=== PATIENT | female | born 1985 | race Caucasian/White ===

== ENCOUNTER 2016-11-10 14:48 | Emergency (ER) | payer OTHER ==
[~2016-11-10] VITALS: Ht 170.2 cm; Wt 141.5 kg
[~2016-11-10 14:48] MED LIST: ABILIFY 10 MG10 MG PO; ABILIFY5 M1 PO; CLINDAMYCIN HY300 MG PO; FOLIC ACID1 M1 PO; GABAPENTIN300 MG PO; HYDROXYCHLOROQ200 M1 PO; LEVOFLOXACIN500 MG PO; LYRICA100 MG PO; METHOTREXA25 MG/1 M5 SC; METHOTREXATE25 MG/M2 SC; METOPROLOL SUCC50 M2 PO; NOVAPLUS V0.09 MG/Ac INH; OXYCODONE HYDRO30 MG PO; OXYCONTIN60 M1 PO; PANTOPRAZOLE SO40 M1; PREDNISONE10 MG PO; PRILOSEC 20MG C20 MG PO; PROAIR HFA8.5 GM INH; PROCHLORPERAZIN10 M1 PO; ROZEREM8 M1 PO; TEGRETOL200 M1 PO; TESSALON PERLE100 MG PO; VALIUM5 M2 PO; VENLAFAXINE HY150 MG PO; VENLAFAXINE HYD75 M1 PO; VITAMIN D250000 UNIT PO; XARELTO20 MG PO; XYLOCAINE VISCO20 ML PO; ZITHROMAX Z-PA250 M1 PO; ZITHROMAX250 M2 PO; ZOFRAN4 MG PO
--- NOTE | 2016-11-10 15:28 | ED CARDIAC/CP/PALPITATIONS ---
History of Present Illness General Chief Complaint: Chest Pain Stated Complaint: BIBA FOR CHEST DISCOMFORT Source: patient Exam Limitations: no limitations Allergies Coded Allergies: Penicillins (Severe, HIVES 03/19/16) ibuprofen (Intermediate, HIVES 03/19/16) levofloxacin (Intermediate, "CAUSED MY RUPTURED TENDON" 03/19/16) Sulfa (Sulfonamide Antibiotics) ("MOM TOLD HER SHE WAS ALLERGIC" 03/19/16) metoclopramide (DYSTONIA 03/19/16) Reconcile Medications Albuterol Sulfate (Proair Hfa) 8.5 GM HFA.AER.AD 2 PUF INH Q4-6 PRN PRN WHEEZE Aripiprazole (Abilify) 5 MG TABLET 1 TAB PO DAILY MENTAL HEALTH (Reported) Carbamazepine (Tegretol) 200 MG TABLET 1 TAB PO BID PAIN (Reported) Ergocalciferol (Vitamin D2) (Vitamin D2) 50,000 UNIT CAPSULE 1 CAP PO QTUES SUPPLEMENT (Reported) Folic Acid 1 MG TABLET 2 TAB PO BID SUPPLEMENT (Reported) Hydroxychloroquine Sulfate 200 MG TABLET 1 TAB PO BID POLYMYOSITIS (Reported) Methotrexate Sodium (Methotrexate) 25 MG/ML VIAL 1 ML SC QW RA (Reported) Methotrexate Sodium (Methotrexate) 25 MG/1 ML VIAL 1 ML SC QMON RA (Reported) Metoprolol Succinate 50 MG TAB.ER.24H 1 TAB PO DAILY HEART/BP (Reported) Oxycodone HCl (Oxycontin) 60 MG TAB.ER.12H 1 TAB PO BID PAIN (Reported) OXYCODONE HCL (Oxycodone Hydrochloride) 30 MG TABLET 1 TAB PO 4 TIMES/DAY PAIN (Reported) Pantoprazole Sodium (Unknown Strength) TABLET.DR (Unknown Dose) UNKNOWN ( Reported) Prednisone 10 MG TABLET 10 MG PO DAILY POLYMYOSITIS (Reported) Pregabalin (Lyrica) 100 MG CAPSULE 1 CAP PO TID PAIN (Reported) Ramelteon (Rozerem) 8 MG TABLET 1 TAB PO DAILY SLEEP (Reported) Rivaroxaban (Xarelto) 20 MG TABLET 1 TAB PO DAILY BLOOD THINNER (Reported) with food VENLAFAXINE HCL (Venlafaxine HCl ER) 150 MG CAP.ER.24H 1 CAP PO DAILY MENTAL HEALTH (Reported) VENLAFAXINE HCL (Venlafaxine HCl ER) 75 MG CAP.ER.24H 1 CAP PO DAILY MOOD HEALTH (Reported) Triage Note: PT BIBA TACHYCARDIA AND CHEST PAIN THAT BEGAN TODAY. TACHYCARDIC ON ARRIVAL AT 110, APPEARS FLUSHED, PT REPORTING "GENERALIZED PAIN BUT I HAV E FIBROMYALGIA SO IM ALWAYS IN PAIN." HX OF PE AND PT REPORTING THIS "FEELS SIMILAR." REPORTING SHE FEELS THOUGH "I CANT TAKE A DEEP BREATH IN" LUNGS CTA. Triage Nurses Notes Reviewed? yes : No Patient currently breastfeeds: No HPI: This patient is a 31-year-old female with a past medical history including tachycardia and pulmonary embolism currently on 20 mg of XARELTO daily who presented to the emergency department today for evaluation of chest pain and difficulty breathing. The patient reported that her symptoms began approximately noon today. She reported that her chest pain gets up to a 7 out of 10, has been located in the center of her chest, has been intermittent in, and occasionally radiates to the bicep of her right arm. She reported no palliative or provoking factors. The patient reported that she feels like it is difficult to take a deep breath in causing her to feel short of breath. The patient also reported that she has had symptoms of calf pain and pain behind her right knee as well as lower extremity swelling over the last several months which has not been addressed. The patient reported some intermittent and associated nausea. She denied any headaches, fevers, chills, jaw pain, numbness or tingling in her extremities, back pain, abdominal pain, vomiting, cough, hemoptysis, exogenous estrogen use, or recent surgeries. The patient reported that she does spend the majority of her time in bed. She reported that her current symptoms feel similar to when she had a pulmonary embolism in the past. The patient is denying any current chest pain. (ELISEO RUIZ,DANIEL) Vital Signs & Intake/Output Vital Signs & Intake/Output Vital Signs Date Time Temp Pulse Resp B/P Pulse O2 O2 Flow FiO2 Ox Delivery Rate 11/10 1906 97.7 106 18 123/59 91 11/10 1649 97.8 110 18 103/54 94 11/10 1503 99 Room Air 11/10 1501 98.4 109 21 123/72 94 Room Air Past History Travel History Traveled to [place] past 21 day No Medical History Any Pertinent Medical History? see below for history Neurological: NONE EENT: NONE Cardiovascular: NONE Respiratory: pulmonary embolism, ASTHMA R\\T SPORTS PNA Gastrointestinal: tubular adenoma Hepatic: NONE Renal: NONE Musculoskeletal: chronic back pain, degen joint disease, fibromyalgia, osteoarthritis, MIXED CONNECTIVE TISSUE DISEASE RSD BULGING DISC TENDON TRANSFER POLYMYOCITIS CARPAL TUNNEL R WRIST FX Psychiatric: bipolar disease, depression Endocrine: NONE Blood Disorders: NONE Cancer(s): NONE BILLPOSTER/Reproductive: NONE Other Medical Hx: MIXED CONNECTIVE TISSUE DISORDER History of MRSA: No History of VRE: No History of CDIFF: No Surgical History Surgical History: non-contributory Psychosocial History Who do you live with Mother Services at Home None What is your primary language Burkinan Tobacco Use: Never used ETOH Use: denies use Illicit Drug Use: denies illicit drug use Family History Family History, If Any: Relation not specified for: FH: lung cancer FH: thyroid condition Hx Contributory? No (DANIEL GOMES PA-C) Review of Systems Review of Systems Constitutional: Reports: no symptoms. EENTM: Reports: no symptoms. Respiratory: Reports: see HPI. Cardiovascular: Reports: see HPI. GI: Reports: see HPI. Genitourinary: Reports: no symptoms. Musculoskeletal: Reports: no symptoms. Skin: Reports: no symptoms. Neurological/Psychological: Reports: no symptoms. Hematologic/Endocrine: Reports: see HPI. All Other Systems: Reviewed and Negative (DANIEL GOMES PA-C) Physical Exam Physical Exam Cardiovascular: TACHYCARDIC WITH A REGULAR RHYTHM AND NO MURMURS, RUBS, OR GALLOPS. nORMAL PERIPHERAL PULSES. nO jvd OR CAROTID BRUITS Comments: Well-developed well-nourished person in no acute distress HEENT: Normal EENT exam, head normocephalic, moist mucous membranes PERRLA bilaterally Neck: Supple, no lymphadenopathy Back: Normal inspection Respiratory: Chest nontender. Speaking sentences. Lungs clear to auscultation bilaterally with no wheezes, rales, or rhonchi. No diminished breath sounds or stridor Abdomen: Soft, nontender and nondistended Extremity: No edema, bilateral calf tenderness with no erythema and positive Homans sign bilaterally, normal and equal pulses. Neuro: Alert oriented x3, cranial nerves II through XII grossly intact. Skin: No appreciable rash on exposed skin, skin is warm and dry. Psych: Mood and affect is normal Core Measures ACS in differential dx? Yes Severe Sepsis Present: No Septic Shock Present: No (ELISEO PA-C,DANIEL) Progress Differential Diagnosis: AMI, aortic dissection, atrial fibrillation, costochondritis, hyperkalemia, hyperthyroid, hyperventilation, musculoskeletal pain, myocarditis, pancreatitis, pericarditis, pneumonia, pneumothorax, PSVT, pulmonary embolism, PUD/GERD, PVCs/PACs, unstable angina, dvt Diagnostic Imaging: Viewed by Me: Radiology Read, Ultrasound. Discussed w/RAD: Radiology Read, Ultrasound. Radiology Impression: PATIENT: SHAVON FARRIS PRESENT AGE: 31 PATIENT ACCOUNT NO: [id number] : 83 LOCATION: ER ORDERING PHYSICIAN: DANIEL GOMES PA-C SERVICE DATE: 11/10/16-1520 EXAM TYPE: US - US-EXT BILAT VENOUS DOPPLER EXAMINATION: US TRIPLEX LOWER EXTREMITY, BILATERAL CLINICAL INFORMATION: Shortness of breath. COMPARISON: Ultrasound of the bilateral lower extremity veins 11/26/2014. TECHNIQUE: Color-flow triplex imaging with spectral analysis and compression Doppler were performed on the bilateral lower extremities. FINDINGS: Respiratory variation, normal compression and augmented flow are noted throughout the bilateral lower extremities. The visualized common femoral veins, femoral veins, profunda femoral veins, popliteal veins and midcalf peroneal and posterior tibial venous segments demonstrate no evidence of deep venous thrombosis. There are no Bedolla's cysts. IMPRESSION: Normal triplex scan without evidence of deep venous thrombosis involving the bilateral lower extremity veins. DICTATED BY: MANDEEP GARVEY MD DATE/TIME DICTATED:11/10/161638 CHANGE MANAGEMENT CONSULTANT:ARMAND DATE/TIME TRANSCRIBED:11/10/161638 CONFIDENTIAL, DO NOT COPY WITHOUT APPROPRIATE AUTHORIZATION. <Electronically signed in Other Vendor System> SIGNED BY: MANDEEP GARVEY MD 11/10/16 1652 CXR Impression: PATIENT: SHAVON FARRIS PRESENT AGE: 31 PATIENT ACCOUNT NO: [id number] : 83 LOCATION: [facility] ORDERING PHYSICIAN: DANIEL GOMES PA-C SERVICE DATE: 11/10/16-1602 EXAM TYPE: RAD - XRY-PORTABLE CHEST XRAY EXAMINATION: XR PORTABLE CHEST CLINICAL INFORMATION: Chest pain and shortness of breath COMPARISON: 03/19/2016 TECHNIQUE: Portable AP view of the chest was obtained. FINDINGS: The cardiomediastinal silhouette is normal. The lungs appear clear. No consolidation, pulmonary edema, pleural effusion, or pneumothorax. The spine is not well visualized due to technique. No acute osseous abnormality is elsewhere seen. IMPRESSION: No acute abnormality. DICTATED BY: DARREN VALLES MD DATE/TIME DICTATED:11/10/161646 CHANGE MANAGEMENT CONSULTANT:ARMAND DATE/TIME TRANSCRIBED:11/10/161646 CONFIDENTIAL, DO NOT COPY WITHOUT APPROPRIATE AUTHORIZATION. <Electronically signed in Other Vendor System> SIGNED BY: DARREN VALLES MD 11/10/161651 Initial ED EKG: normal axis, normal intervals, nonspecific ST T wave chg, 113 BPM, MORE EXAGGERATED st DEPRESSIONS IN LEADS v1, v2 THEN IN PRIOR ekg Repeat EKG: unchanged (100 BPM) Comments: 11/10/2016 5:19:16 PM: I was at the patient's bedside for reevaluation. She is currently resting comfortably on the stretcher and in no acute distress. Updated her on the results of her imaging and laboratory studies. White blood cell count 10.9. D-dimer less than 200. No evidence of DVT on bilateral lower extremity ultrasound. Troponin not elevated. This patient will stay for a second troponin level IV hours from the first. She is requesting medication for pain at this time. She reported that she took her previously prescribed oxycodone and OxyContin this morning. That was at 7:00 AM. 11/10/2016 9:05:34 PM: Patient was updated on the rest of her laboratory studies. Influenza swab negative. Second troponin level not elevated. This patient is going to make a follow-up appointment with her primary care physician. Stable for discharge home. (ELISEO RUIZ,DANIEL) Plan of Care: Orders Procedure Date/time Status TROPONIN LEVEL 11/10 1929 Complete EKG 11/10 1929 Active RAPID VIRAL INFLUENZA A 11/10 1719 Complete THYROID STIMULATING HORMONE 11/10 1528 Complete FREE T4 11/10 1528 Complete ARTERIAL BLOOD GAS (GEN) 11/10 1520 Complete TROPONIN LEVEL 11/10 1520 Complete PARTIAL THROMBOPLASTIN TIME 11/10 1520 Complete PROTHROMBIN TIME 11/10 1520 Complete MAGNESIUM 11/10 1520 Complete HUMAN BETA HCG SCREEN 11/10 1520 Complete D-DIMER 11/10 1520 Complete COMPREHENSIVE METABOLIC PANEL 11/10 1520 Complete CBC WITHOUT DIFFERENTIAL 11/10 1520 Complete EKG 11/10 1449 Active Laboratory Tests 11/10/162004: Troponin I < 0.01 11/10/16 1540: pH 7.38, pCO2 52 H, pO2 74 L, HCO3 30 H, ABG O2 Sat (Measured) 94.0 L, P-50 (Temp Corrected) Y, Carboxyhemoglobin 0.5 L, O2 Concentration % 2L, Temperature 97.8, O2 Delivery Method N/C, Phlebotomy Draw Site RIGHT RADIAL 11/10/16 1533: TSH 2.250, Free T4 1.19 11/10/16 1533: Anion Gap 11, Estimated GFR > 60, BUN/Creatinine Ratio 14.3, Glucose 87, Calcium 8.2 L, Magnesium 1.6, Total Bilirubin 0.3, AST 26, ALT 48, Alkaline Phosphatase 130 H, Troponin I < 0.01, Total Protein 6.9, Albumin 3.8, Globulin 3.1, Albumin /Globulin Ratio 1.2, Total Beta HCG NEGATIVE, PT 11.7, INR 1.12, APTT 29, D- Dimer < 200, CBC w Diff NO MAN DIFF REQ, RBC 4.34, MCV 89.1, MCH 30.0, RDW 13.3, MPV 8.7, Gran % 66.8, Lymphocytes % 26.2, Monocytes % 5.6, Eosinophils % 1.0, Basophils % 0.4, Absolute Granulocytes 7.3 H, Absolute Lymphocytes 2.9, Absolute Monocytes 0.6, Absolute Eosinophils 0.1, Absolute Basophils 0, PUBS MCHC 33.6 Departure Departure Disposition: HOME OR SELF CARE Condition: Stable Clinical Impression Primary Impression: Chest pain Qualifiers: Chest pain type: unspecified Qualified Code: R07.9 - Chest pain, unspecified Referrals: JENNIE NIELSEN MD (PCP/Family) Additional Instructions: Please call to make a follow-up appointment with your primary care physician. Rest and be sure to stay hydrated. Return to the emergency department for any worsening symptoms or concerns. Departure Forms: Customer Survey General Discharge Information (DANIEL GOMES PA-C) PA/SENIOR BEHAVIORAL SCIENTIST Co-Sign Statement Statement: ED Attending supervision documentation- [] I saw and evaluated the patient. I have also reviewed all the pertinent lab results and diagnostic results. I agree with the findings and the plan of care as documented in the PA's/SENIOR BEHAVIORAL SCIENTIST's documentation. [x] I have reviewed the ED Record and agree with the PA's/SENIOR BEHAVIORAL SCIENTIST's documentation. [] Additions or exceptions (if any) to the PAs/SENIOR BEHAVIORAL SCIENTIST's note and plan are summarized below: [] (TRINA WNAG,BRET Mullins) Resident Co-Sign Statement Statement: ED Attending supervision documentation- [] I saw and evaluated the patient. I have also reviewed all the pertinent lab results and diagnostic results. I agree with the findings and the plan of care as documented in the Resident's documentation. [X] I have reviewed the ED Record and agree with the Resident's documentation. [] Additions or exceptions (if any) to the Resident's note and plan are summarized below: [] (MARJORIE COMER,BRET Cooper) Critical Care Note Critical Care Note Critical Care Time: non-applicable (ELISEO RUIZ,DANIEL)
[2016-11-10 15:54] LABS: ABSOLUTE BASOPHIL COUNT 0 /CUMM (0.0-0.2); ABSOLUTE EOSINOPHIL COUNT 0.1 /CUMM (0.0-0.7); ABSOLUTE GRANULOCYTE CT 7.3 /CUMM (1.4-6.5); ABSOLUTE LYMPH COUNT 2.9 /CUMM (1.2-3.4); ABSOLUTE MONOCYTE COUNT 0.6 /CUMM (0.10-0.60); BASOPHIL % 0.4 % (0.0-2.0); GRANULOCYTE % 66.8 % (42.2-75.2); HEMATOCRIT 38.6 % (37-47); MEAN CORPUSCULAR HGB CONC 33.6 G/DL (33.0-37.0); MEAN CORPUSCULAR VOLUME 89.1 FL (81.0-99.0); MEAN PLATELET VOLUME 8.7 FL (7.4-10.4); PLATELET COUNT 276 /CUMM (130-400); RBC DISTRIBUTION WIDTH 13.3 % (11.5-14.5); RED BLOOD CELL CT 4.34 /CUMM (4.20-5.40); WHITE BLOOD CELL COUNT 10.9 /CUMM (4.8-10.8)
[2016-11-10 15:57] LABS: PT 11.7 SEC (9.4-12.5); PTT 29 SEC (25-37)
--- NOTE | 2016-11-10 16:52 | ULTRASOUND REPORT ---
EXAMINATION: US TRIPLEX LOWER EXTREMITY, BILATERAL CLINICAL INFORMATION: Shortness of breath. COMPARISON: Ultrasound of the bilateral lower extremity veins 11/26/2014. TECHNIQUE: Color-flow triplex imaging with spectral analysis and compression Doppler were performed on the bilateral lower extremities. FINDINGS: Respiratory variation, normal compression and augmented flow are noted throughout the bilateral lower extremities. The visualized common femoral veins, femoral veins, profunda femoral veins, popliteal veins and midcalf peroneal and posterior tibial venous segments demonstrate no evidence of deep venous thrombosis. There are no Bedolla's cysts. IMPRESSION: Normal triplex scan without evidence of deep venous thrombosis involving the bilateral lower extremity veins.
--- NOTE | 2016-11-10 16:52 | RADIOLOGY REPORT ---
EXAMINATION: XR PORTABLE CHEST CLINICAL INFORMATION: Chest pain and shortness of breath COMPARISON: 03/19/2016 TECHNIQUE: Portable AP view of the chest was obtained. FINDINGS: The cardiomediastinal silhouette is normal. The lungs appear clear. No consolidation, pulmonary edema, pleural effusion, or pneumothorax. The spine is not well visualized due to technique. No acute osseous abnormality is elsewhere seen. IMPRESSION: No acute abnormality.
[2016-11-10 19:06] VITALS: BP 123/59
== END 2016-11-10 21:20 ==
LOC: ERH 14:48
PROVIDERS: Physician Assistant
DX: R07.89 Other chest pain (principal)
CPT/HCPCS: 87804; 87804-59; 93005; 93010; 93970; 96374

== ENCOUNTER 2017-12-12 18:52 | Observation (INO) | payer OTHER ==
[~2017-12-12] VITALS: Ht 170.2 cm; Wt 147.4 kg
[~2017-12-12 18:52] MED LIST changes: +DIAZEPAM5 M1 PO; -HYDROXYCHLOROQ200 M1 PO; +HYDROXYCHLOROQ200 M2 PO; +HYDROXYZINE PAM25 M2 PO; +LYRICA100 M1 PO; -LYRICA100 MG PO; +METOPROLOL TART50 M1 PO; +OXYCODONE HCL30 M1 PO; +PREDNISONE10 M2 PO; -PREDNISONE10 MG PO; +RASUVO 2525 MG/0.5 IM; +VENLAFAXINE HC225 MG PO; +XARELTO20 M2 PO; -XARELTO20 MG PO
--- NOTE | 2017-12-12 19:18 | ED PSYCHIATRIC COMPLAINT ---
See Addendum History of Present Illness General Chief Complaint: Psychiatric Related Complaint Stated Complaint: SIB CARE FOR CRISIS EVAL, +SI Source: patient Exam Limitations: no limitations Vital Signs & Intake/Output Vital Signs & Intake/Output Vital Signs Date Time Temp Pulse Resp B/P B/P Pulse O2 O2 Flow FiO2 Mean Ox Delivery Rate 12/14 1352 98.2 98 18 111/64 94 Room Air 03/ 1111 97.9 92 18 130/76 98 Room Air 03/ 0956 98.7 88 18 135/63 03/02 0826 98.7 88 18 135/63 98 Room Air 03/ 0659 99.1 99 18 110/64 97 Room Air 03/ 0535 97.0 80 18 122/70 98 Room Air / 0331 97.3 82 18 125/72 97 Room Air / 0032 97.5 80 18 122/74 98 Room Air 12/13 2231 97.8 83 14 118/64 95 Room Air 12/13 2011 97.6 82 16 124/66 96 Room Air 12/13 1806 98.0 84 14 129/70 96 Room Air 12/13 1604 98.0 82 19 122/66 95 Room Air ED Intake and Output / 0000 12/13 1200 Intake Total Output Total Balance Patient 325 lb Weight Allergies Coded Allergies: Penicillins (Severe, HIVES 06/25/17) ibuprofen (Intermediate, HIVES 06/25/17) levofloxacin (Intermediate, "CAUSED MY RUPTURED TENDON" 06/25/17) Sulfa (Sulfonamide Antibiotics) ("MOM TOLD HER SHE WAS ALLERGIC" 06/25/17) metoclopramide (DYSTONIA 06/25/17) Triage Note: PT TO TRIAGE WITH +SI. PER PT CALLED [facility] TO TELL THEM SHE WAS COMING HERE BECAUSE SHE HAS BEEN DEPRESSED WITH LIFE STRESSORS LATELY. DENIES ACTIVE PLAN. DENIES SI ATTEMPTS IN THE PAST BUT ADMITS TO LONG TAFOYA WITH DEPRESSION. PER PT FEELS "MANIC" LIKE SHE CANNOT CONTROL HER THOUGHTS. HX:BIPOLAR. DENIES HI. AWARE OF POLICIES AND PROCEDURES. PT CALM AND COOPERATIVE IN TRIAGE. Triage Nurses Notes Reviewed? yes Onset: Gradual Duration: week(s): (1), changing over time, continues in ED, getting worse Timing: single episode today Severity: moderate, severe Associated Symptoms: suicidal ideation LMP (ages 10-50): unknown : No Patient currently breastfeeds: No HPI: 32-year-old female past medical history depression, chronic back pain bipolar disorder and pulmonary embolism presents for evaluation of depression and suicidal ideation. Patient states that due to increasing life stressors recently she's been having thoughts of suicide. She states that she has been having thoughts of wanting to overdose on pills. She denies any illicit drug use does state that she uses oxycodone and OxyContin and Valium and but does report that she takes her remaining meds as directed. She denies any hallucinations alcohol use chest pain shortness of breath. She does have chronic back pain which hurts her constantly. (René SEBASTIAN,Jorgito) Reconcile Medications Albuterol Sulfate (Proair Hfa) 8.5 GM HFA.AER.AD 2 PUF INH Q4-6 PRN PRN WHEEZE Aripiprazole (Abilify) 5 MG TABLET 1 TAB PO DAILY MENTAL HEALTH (Reported) Bupropion HCl (Wellbutrin XL) 150 MG TAB.ER.24H 1 TAB PO DAILY MENTAL HEALTH (Reported) Carbamazepine (Carbamazepine XR) 400 MG TAB.ER.12H 1 TAB PO BID MENTAL HEALTH (Reported) Diazepam 5 MG TABLET 1 TAB PO 4 TIMES/DAY ANXIETY (Reported) Ergocalciferol (Vitamin D2) (Vitamin D2) 50,000 UNIT CAPSULE 1 CAP PO QTUES SUPPLEMENT (Reported) Folic Acid 1 MG TABLET 1 TAB PO BID SUPPLEMENT (Reported) Hydroxychloroquine Sulfate 200 MG TABLET 1 TAB PO BID POLYMYSITIS (Reported) Hydroxyzine Pamoate 25 MG CAPSULE 1 CAP PO 4 TIMES/DAY ANXIETY (Reported) Lidocaine HCl (Lidocaine) (Unknown Strength) OINT...G. (Unknown Dose) TOP PRN PAIN (Reported) Methotrexate/Pf (Rasuvo 25 MG/0.5 Ml Autoinj) 25 MG/0.5 ML AUTO.INJCT 1 INJ INJ QMON POLYMYSITIS (Reported) Metoprolol Succinate 50 MG TAB.ER.24H 1 TAB PO QAM HEART/BP (Reported) Oxycodone HCl (Oxycontin) 60 MG TAB.ER.12H 1 TAB PO TID PAIN (Reported) Oxycodone HCl 30 MG TABLET 1 TAB PO Q4 PAIN (Reported) Oxycodone Myristate (Xtampza ER) (Unknown Strength) CAP.SPR.12 (Unknown Dose) UNKNOWN (Reported) Prednisone 10 MG TABLET 1 TAB PO DAILY POLYMYOSITIS (Reported) Pregabalin (Lyrica) 100 MG CAPSULE 1 CAP PO TID PAIN (Reported) Rivaroxaban (Xarelto) 20 MG TABLET 1 TAB PO QPM BLOOD THINNER (Reported) with food Venlafaxine HCl (Venlafaxine HCl ER) 225 MG TAB.ER.24 1 TAB PO DAILY MOOD HEALTH (Reported) (Brendan WANG,Yury Ndiaye) Past History Travel History Traveled to [place] past 21 day No Medical History Any Pertinent Medical History? see below for history Neurological: NONE EENT: NONE Cardiovascular: NONE Respiratory: pulmonary embolism, ASTHMA R\\T SPORTS PNA Gastrointestinal: tubular adenoma Hepatic: NONE Renal: NONE Musculoskeletal: chronic back pain, degen joint disease, fibromyalgia, osteoarthritis, MIXED CONNECTIVE TISSUE DISEASE RSD BULGING DISC TENDON TRANSFER POLYMYOCITIS CARPAL TUNNEL R WRIST FX Psychiatric: bipolar disease, depression Endocrine: NONE Blood Disorders: NONE Cancer(s): NONE LAB AID/Reproductive: NONE Other Medical Hx: MIXED CONNECTIVE TISSUE DISORDER History of MRSA: No History of VRE: No History of CDIFF: No Surgical History Surgical History: non-contributory Psychosocial History Who do you live with Mother Services at Home None What is your primary language Portuguese Tobacco Use: Quit >30 days ago ETOH Use: denies use Illicit Drug Use: marijuana Family History Family History, If Any: Relation not specified for: FH: lung cancer FH: thyroid condition Hx Contributory? No (Jorgito Quintero) Review of Systems Review of Systems Constitutional: Reports: no symptoms. EENTM: Reports: no symptoms. Respiratory: Reports: no symptoms. Cardiovascular: Reports: no symptoms. GI: Reports: no symptoms. Genitourinary: Reports: no symptoms. Musculoskeletal: Reports: see HPI, back pain. Skin: Reports: no symptoms. Neurological/Psychological: Reports: see HPI, anxiety, depressed. Hematologic/Endocrine: Reports: no symptoms. Immunologic/Allergic: Reports: no symptoms. All Other Systems: Reviewed and Negative (Jorgito Quintero) Physical Exam Physical Exam General Appearance: well developed/nourished, no apparent distress, alert, awake , anxious, obese Head: atraumatic, normal appearance Eyes: Bilateral: normal appearance, PERRL, EOMI. Ears, Nose, Throat: normal pharynx, normal ENT inspection, hearing grossly normal Neck: normal inspection, supple, full range of motion Respiratory: normal breath sounds, chest non-tender, no respiratory distress, lungs clear Cardiovascular: regular rate/rhythm, normal peripheral pulses Gastrointestinal: soft, non-tender Extremities: normal range of motion Neurological/Psychiatric: no motor/sensory deficits, awake, alert, anxious Appearance/Memory/Insight: disheveled Behavoir/Eye Contact/Speech: cooperative, normal speech Thoughts/Hallucinations: normal thought pattern, no apparent hallucination Skin: intact, normal color, warm/dry SAD PERSONS SAD PERSONS Response Value Depression/Hopelessness? yes 2 Excessive Ethanol/Drug Use? yes 1 Rational Thinking Loss? yes 2 Single//? yes 1 Total 6 SAD PERSONS Done? yes (René SEBASTIAN,Jorgito) Progress Differential Diagnosis: dementia, drug intoxication, drug overdose, drug withdrawal, electrolyte abnormality Plan of Care: Orders Procedure Date/time Status Continuous Observation Monitor 12/14 0700 Active Continuous Observation Monitor 12/14 0300 Active Continuous Observation Monitor 12/13 2300 Active Continuous Observation Monitor 12/13 1900 Active Current Medications Sig/Paul Start time Last Medication Dose Stop Time Status Admin Bupropion HCl 150 MG DAILY 12/14 1000 AC 12/14 (Wellbutrin XL) 0956 Oxycodone HCl 30 MG Q4 12/14 1000 AC 12/14 (Roxicodone) 0956 Oxycodone HCl 60 MG Q8 12/14 0810 AC 12/14 (OxyCONTIN) 0827 Venlafaxine HCl 225 MG 0800 12/14 0800 AC 12/14 (Effexor Xr) 0803 Rivaroxaban 20 MG 1700 12/13 1700 AC 12/13 (Xarelto) 1745 Aripiprazole 5 MG DAILY 12/13 1000 AC 12/13 (Abilify) 1046 Carbamazepine 400 MG BID 12/13 1000 AC 12/14 (Carbatrol Extended 0955 Release) Diazepam 5 MG DAILY 12/13 1000 AC 12/14 (Valium) 0956 Hydroxychloroquine 200 MG BID 12/13 1000 AC 12/14 Sulfate 0956 (Plaquenil 200MG Tab) Metoprolol Succinate 50 MG DAILY 12/13 1000 AC 12/14 (Toprol Xl) 0956 Prednisone 10 MG DAILY 12/13 1000 AC 12/14 0956 Omeprazole 20 MG DAILY AC 12/13 0700 AC 12/14 (Prilosec) 0803 Pregabalin 100 MG TID 12/13 0115 AC 12/14 (Lyrica) 0956 Patient seen and evaluated. She is reporting thoughts of suicide with a plan to ingest pills. We'll check basic blood work patient will then see crisis. Patient's medications that she takes daily were ordered. It was noted that she takes oxycodone 30 mg 4 times a day and diazepam 5 mg daily. Since these are her chronic meds they will be continued to have her avoid withdrawal symptoms. She states that she has not taken her opioids in 2 days which may be contributing to her suicidal thoughts. Patient signed out to Dr. ROJO pending blood work and crisis. Hand-Off Endorsed To: Eugenio Rojo MD Endorsed Time: 230 Pending: consult (CRISIS) (Jorgito Quintero) Hand-Off Endorsed To: Faisal De La Rosa MD Endorsed Time: 0700 Pending: consult (Eugenio Rojo MD) Departure Departure Condition: Stable Clinical Impression Primary Impression: Suicidal ideation Referrals: Yury Milligan MD (PCP/Family) Departure Forms: Customer Survey General Discharge Information (Jorgito Quintero) PA/PET RESORT CONCIERGE Co-Sign Statement Statement: ED Attending supervision documentation- x I saw and evaluated the patient. I have also reviewed all the pertinent lab results and diagnostic results. I agree with the findings and the plan of care as documented in the PA's/PET RESORT CONCIERGE's documentation. [] I have reviewed the ED Record and agree with the PA's/PET RESORT CONCIERGE's documentation. [] Additions or exceptions (if any) to the PAs/PET RESORT CONCIERGE's note and plan are summarized below: [] (Eugenio Rojo MD) Departure Disposition: [facility] (Brendan WANG,Yury Ndiaye) ED Attending Observation Initial Observation Note: I have seen and personally examined SHAVON FARRIS on 12/12/17 at 2973. I agree with the current emergency department documentation. The disposition (admission or discharge) is uncertain at this time, she needs a period of observation for the following reason(s): depression suicidal ideation awaiting psychiatric evaluation The ED Nurse caring for this patient has been personally informed as to what the patient is being observed for. (Eugenio Rojo MD) Observation Discharge: I have reevaluated BRENTONSHAVON E on 12/14/17 at 1356. The patient is: (): Stable for discharge (): To be admitted to Nursing Floor (): To be placed in Observation on Nursing Floor ([X]): For transfer to other facility The patient was being observed for [DEPRESISON] As a result of that observation, I have determined [TRANSFER TO INPATIENT PSYCH] . (Brendan WANG,Yury Ndiaye)
[2017-12-13 01:44] LABS: ABSOLUTE BASOPHIL COUNT 0 /CUMM (0.0-0.2); ABSOLUTE EOSINOPHIL COUNT 0.1 /CUMM (0.0-0.7); ABSOLUTE GRANULOCYTE CT 4.1 /CUMM (1.4-6.5); ABSOLUTE LYMPH COUNT 2.8 /CUMM (1.2-3.4); ABSOLUTE MONOCYTE COUNT 0.3 /CUMM (0.10-0.60); BASOPHIL % 0.6 % (0.0-2.0); EOSINOPHIL % 1.5 % (0-5); GRANULOCYTE % 55.8 % (42.2-75.2); HEMATOCRIT 38.6 % (37-47); MEAN CORPUSCULAR HGB 29.3 PG (27.0-31.0); MEAN CORPUSCULAR HGB CONC 33.2 G/DL (33.0-37.0); MEAN CORPUSCULAR VOLUME 88.4 FL (81.0-99.0); MEAN PLATELET VOLUME 7.7 FL (7.4-10.4); PLATELET COUNT 332 /CUMM (130-400); RBC DISTRIBUTION WIDTH 13.6 % (11.5-14.5); RED BLOOD CELL CT 4.37 /CUMM (4.20-5.40); WHITE BLOOD CELL COUNT 7.3 /CUMM (4.8-10.8)
[2017-12-13] MEDS ORDERED: CARBAMAZEPINE400 M1 PO (08:56)
[2017-12-13] MEDS ORDERED: WELLBUTRIN XL150 M2 PO (09:00)
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
[2017-12-13] MEDS ORDERED: RASUVO 2525 MG/0.5 INJ (18:53)
[2017-12-13] MEDS ORDERED: XTAMPZA ER36 MG (18:55)
[2017-12-13] MEDS ORDERED: LIDOCAINE35.44 GM TOP (18:55)
[2017-12-14 13:52] VITALS: BP 111/64
== END 2017-12-14 15:09 | disposition other institution (70) ==
LOC: ERH 18:52 → ERHI 23:52
PROVIDERS: Physician Assistant Medical
DX: F32.9 Major depressive disorder, single episode, unspecified (principal); M33.20 Polymyositis, organ involvement unspecified; R45.851 Suicidal ideations; J45.909 Unspecified asthma, uncomplicated; F31.9 Bipolar disorder, unspecified; M54.9 Dorsalgia, unspecified; Z86.711 Personal history of pulmonary embolism; Z79.01 Long term (current) use of anticoagulants; F12.90 Cannabis use, unspecified, uncomplicated; Z86.018 Personal history of other benign neoplasm; M79.7 Fibromyalgia; M19.90 Unspecified osteoarthritis, unspecified site
CPT/HCPCS: 80307; 81003; 81025; G0378; G0463; G0480; J3490; J7512

== ENCOUNTER 2018-01-10 19:03 | Inpatient (IN) | payer OTHER ==
[~2018-01-10] VITALS: Ht 170.2 cm; Wt 150.3 kg
[~2018-01-10 19:03] MED LIST changes: +CARBAMAZEPINE400 M1 PO; +LIDOCAINE35.44 GM TOP; +RASUVO 2525 MG/0.5 INJ; +WELLBUTRIN XL150 M2 PO; +XTAMPZA ER36 MG
[2018-01-10 20:16] LABS: ABSOLUTE BASOPHIL COUNT 0 /CUMM (0.0-0.2); ABSOLUTE EOSINOPHIL COUNT 0.1 /CUMM (0.0-0.7); ABSOLUTE GRANULOCYTE CT 3.6 /CUMM (1.4-6.5); ABSOLUTE LYMPH COUNT 2.6 /CUMM (1.2-3.4); ABSOLUTE MONOCYTE COUNT 0.3 /CUMM (0.10-0.60); BASOPHIL % 0.5 % (0.0-2.0); EOSINOPHIL % 1.7 % (0-5); GRANULOCYTE % 53.6 % (42.2-75.2); HEMATOCRIT 36.4 % (37-47); MEAN CORPUSCULAR HGB 29.7 PG (27.0-31.0); MEAN CORPUSCULAR HGB CONC 33.5 G/DL (33.0-37.0); MEAN CORPUSCULAR VOLUME 88.5 FL (81.0-99.0); MEAN PLATELET VOLUME 7.6 FL (7.4-10.4); PLATELET COUNT 283 /CUMM (130-400); RBC DISTRIBUTION WIDTH 13.4 % (11.5-14.5); RED BLOOD CELL CT 4.11 /CUMM (4.20-5.40); WHITE BLOOD CELL COUNT 6.7 /CUMM (4.8-10.8)
--- NOTE | 2018-01-10 20:38 | ED PSYCHIATRIC COMPLAINT ---
History of Present Illness General Chief Complaint: Psychiatric Related Complaint Stated Complaint: +SI, ON PEER Source: patient, old records, EMS, police Exam Limitations: PSYCHIATRIC DISEASE, RELUCTANT HISTORIAN Vital Signs & Intake/Output Vital Signs & Intake/Output Vital Signs Date Time Temp Pulse Resp B/P B/P Pulse O2 O2 Flow FiO2 Mean Ox Delivery Rate 01/11 1850 98.1 97 18 145/90 96 Room Air 01/11 1556 97.8 98 18 112/76 96 Room Air 01/11 1205 97.9 96 18 108/74 94 Room Air 01/11 1001 98.4 98 18 110/84 91 Room Air 01/11 0808 98.9 101 18 114/54 98 Room Air 01/11 0652 97.9 72 18 116/70 96 01/11 0513 20 Room Air 01/11 0224 97.6 68 18 106/72 96 Room Air 01/11 0130 Room Air 01/11 0130 97.6 83 18 124/66 98 Room Air 01/10 2330 97.2 81 18 107/55 96 Room Air 01/10 2259 Room Air 01/10 2134 97.8 79 20 102/56 94 Room Air ED Intake and Output 01/11 0000 01/10 1200 Intake Total 0 Output Total Balance 0 Intake, Oral 0 Allergies Coded Allergies: Penicillins (Severe, HIVES 06/25/17) ibuprofen (Intermediate, HIVES 06/25/17) levofloxacin (Intermediate, "CAUSED MY RUPTURED TENDON" 06/25/17) Sulfa (Sulfonamide Antibiotics) ("MOM TOLD HER SHE WAS ALLERGIC" 06/25/17) metoclopramide (DYSTONIA 06/25/17) Reconcile Medications Albuterol Sulfate (Proair Hfa) 8.5 GM HFA.AER.AD 2 PUF INH Q4-6 PRN PRN WHEEZE Bupropion HCl (Wellbutrin XL) 150 MG TAB.ER.24H 1 TAB PO DAILY MENTAL HEALTH (Reported) Carbamazepine (Carbamazepine XR) 400 MG TAB.ER.12H 1 TAB PO BID MENTAL HEALTH (Reported) Diazepam 5 MG TABLET 1 TAB PO 4 TIMES/DAY ANXIETY (Reported) Ergocalciferol (Vitamin D2) (Vitamin D2) 50,000 UNIT CAPSULE 1 CAP PO QTUES SUPPLEMENT (Reported) Fluoxetine HCl 20 MG CAPSULE 2 CAP PO DAILY MENTAL HEALTH (Reported) Folic Acid 1 MG TABLET 1 TAB PO BID SUPPLEMENT (Reported) Hydroxychloroquine Sulfate 200 MG TABLET 1 TAB PO BID POLYMYSITIS (Reported) Hydroxyzine Pamoate 25 MG CAPSULE 1 CAP PO 4 TIMES/DAY ANXIETY (Reported) Lidocaine HCl (Lidocaine) (Unknown Strength) OINT...G. (Unknown Dose) TOP PRN PAIN (Reported) Methotrexate/Pf (Rasuvo 25 MG/0.5 Ml Autoinj) 25 MG/0.5 ML AUTO.INJCT 1 INJ INJ QMON POLYMYSITIS (Reported) Metoprolol Succinate 50 MG TAB.ER.24H 1 TAB PO QAM HEART/BP (Reported) Oxycodone HCl (Oxycontin) 60 MG TAB.ER.12H 1 TAB PO BID PAIN (Reported) Oxycodone HCl 30 MG TABLET 1 TAB PO Q4 PAIN (Reported) Prednisone 10 MG TABLET 1 TAB PO DAILY POLYMYOSITIS (Reported) Pregabalin (Lyrica) 100 MG CAPSULE 1 CAP PO TID PAIN (Reported) Rivaroxaban (Xarelto) 20 MG TABLET 1 TAB PO QPM BLOOD THINNER (Reported) with food Trazodone HCl 150 MG TABLET 1 TAB PO QPM MENTAL HEALTH (Reported) Venlafaxine HCl (Venlafaxine HCl ER) 150 MG CAP.ER.24H 1 CAP PO DAILY MENTAL HEALTH (Reported) Triage Note: PT BIBA ON PEER FOR +SI SINCE MAY. CALM AND COOPERATIVE ON ARRIVAL. Triage Nurses Notes Reviewed? yes Onset: Afternoon Duration: hour(s):, continues in ED, getting worse Severity: severe : No Patient currently breastfeeds: No HPI: Patient presents for evaluation of suicide ideation this evening. Patient states she called the crisis line who then put her in contact with the police. The police prompted her to come to the emergency department for evaluation. She states that she "does not want to live" and "doesn't want to be in pain". She states that she was unable to take her chronic pain medications prior to arrival because the police wouldn't allow her to do so. In addition to feeling suicidal she is feeling overwhelmed. (Estrella WANG,Faisal Carrizales) Past History Travel History Traveled to [place] past 21 day No Medical History Any Pertinent Medical History? 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 No (Estrella WANG,Faisal Carrizales) Review of Systems Review of Systems Constitutional: Reports: no symptoms. EENTM: Reports: no symptoms. Respiratory: Reports: no symptoms. Cardiovascular: Reports: no symptoms. GI: Reports: no symptoms. Genitourinary: Reports: no symptoms. Musculoskeletal: Reports: no symptoms, joint pain (LEFT WRIST-CARPAL TUNNEL). Skin: Reports: no symptoms. Neurological/Psychological: Reports: see HPI. Hematologic/Endocrine: Reports: no symptoms. Immunologic/Allergic: Reports: no symptoms. All Other Systems: Reviewed and Negative (Estrella WANG,Faisal Carrizales) Physical Exam Physical Exam General Appearance: SEE BELOW Neurological/Psychiatric: SEE BELOW Comments: General: Alert, calm, cooperative Head: Normocephalic, atraumatic Eyes: Normal inspection, no nystagmus, EOMI Ears: Normal inspection Nose: Normal inspection Throat: Moist mucosa Neck: Supple, no goiter Heart: Regular rate and rhythm, no murmurs rubs or gallops Lungs: Clear to auscultation bilaterally with good air entry Abdomen: Soft nontender nondistended, normal bowel sounds Chest: Nontender Extremities: Normal range of motion grossly, no tremors present, no cyanosis clubbing or edema of the upper extremities Neurologic: cranial nerves II through XII grossly intact, speech clear, gait normal Psychiatric: No apparent delusions or hallucinations, no pressured speech or thought blocking SAD PERSONS Done? DEFERRED TO CRISIS (Estrella WANG,Faisal Carrizales) Progress Differential Diagnosis: DEPRESSION, ANXIETY, BIPOLAR DISORDER, PERSONALITY DISORDER Plan of Care: Orders Procedure Date/time Status Regular Diet 03/31 B Active Admit to inpatient psych 01/11 2002 Active Misc Message 01/11 2002 Active ED Holding Orders 01/11 2002 Active Code Status 01/11 2002 Active Continuous Observation Monitor 01/11 1900 Active Continuous Observation Monitor 01/11 1500 Active Continuous Observation Monitor 01/11 1100 Active Continuous Observation Monitor 01/11 0700 Active URINE DRUG SCREEN FOR ER ONLY 01/10 2038 Complete ED CRISIS PSYCH CONSULT 01/10 2038 Active Current Medications Sig/Paul Start time Last Medication Dose Stop Time Status Admin Venlafaxine HCl 150 MG 0800 01/12 0800 UNVr (Effexor Xr) Oxycodone HCl 30 MG Q6 01/11 1500 UNVr (Roxicodone) Bupropion HCl 150 MG DAILY 01/11 1000 UNVr 01/11 (Wellbutrin XL) 1045 Fluoxetine HCl 40 MG DAILY 01/11 1000 UNVr 01/11 (Prozac) 1045 Metoprolol Succinate 50 MG QAM 01/11 1000 UNVr 01/11 (Toprol Xl) 1045 Prednisone 10 MG DAILY 01/11 1000 UNVr 01/11 1046 Pregabalin 100 MG TID 01/11 0103 AC 01/11 (Lyrica) 1052 Hydroxyzine HCl 25 MG Q6 01/11 0102 UNVr 01/11 (Atarax) 0819 Diazepam 5 MG 4 TIMES/DAY 01/11 0101 AC 01/11 (Valium) 1052 Hydroxychloroquine 200 MG BID 01/11 010 UNVr 01/11 Sulfate 1045 (Plaquenil 200MG Tab) Laboratory Tests 01/10/182140: Urine Opiates Screen 831.00, Methadone Screen < 40, Barbiturate Screen < 60, Ur Phencyclidine Scrn < 6.00, Amphetamines Screen < 100, U Benzodiazepines Scrn > 800 H, Urine Cocaine Screen < 50, Urine Cannabis Screen 13.60, Urine Test NEGATIVE 01/10/182037: Sodium Cancelled, Potassium Cancelled, Chloride Cancelled, Carbon Dioxide Cancelled, Anion Gap Cancelled, BUN Cancelled, Creatinine Cancelled, BUN/ Creatinine Ratio Cancelled, Glucose Cancelled, Calcium Cancelled 01/10/182006: Anion Gap 10, Estimated GFR > 60, BUN/Creatinine Ratio 11.7, Glucose 120 H, Calcium 9.2, Total Bilirubin 0.3, AST 23, ALT 18, Alkaline Phosphatase 143 H, Total Protein 6.9, Albumin 3.7, Globulin 3.2, Albumin/Globulin Ratio 1.2, CBC w Diff NO MAN DIFF REQ, RBC 4.11 L, MCV 88.5, MCH 29.7, MCHC 33.5, RDW 13.4, MPV 7.6, Gran % 53.6, Lymphocytes % 39.4, Monocytes % 4.8, Eosinophils % 1.7, Basophils % 0.5, Absolute Granulocytes 3.6, Absolute Lymphocytes 2.6, Absolute Monocytes 0.3, Absolute Eosinophils 0.1, Absolute Basophils 0, Serum Alcohol < 10.0 Comments: 01/11/2018 7:24:03 AM patient signed out to Dr. ROJO at shift manager change. (Estrella WANG,Faisal Carrizales) Hand-Off Endorsed To: Eliseo WANG,Alec Tirado Endorsed Time: 1899 Pending: consult (re-eval), other (taper prn oxycodone) (Eugenio Rojo MD) Departure Departure Disposition: STILL A PATIENT Condition: Stable Clinical Impression Primary Impression: Depression Referrals: Yury Milligan MD (PCP/Family) Departure Forms: Customer Survey General Discharge Information (Estrella WANG,Faisal Carrizales) Psych Admission Note Psychiatric Admission: I have seen and evaluated SHAVON FARRIS. I have also reviewed all the pertinent lab results and diagnostic results. SHAVON FARRIS Erasmo will be admitted to our inpatient Psychiatric unit for treatment and care. (Eliseo WANG,Alec Tirado)
--- NOTE | 2018-01-10 20:56 | ED PSY CRISIS COLLATERAL NOTE ---
Collateral Note Collateral Note Family/Inform/Makayla Contacts: SW attempted to obtain collateral from the patients sister, Sylvia Flynn ), however there was no answer and a message was left.
[2018-01-10] MEDS ORDERED: FLUOXETINE HCL20 M2 PO (21:28)
[2018-01-10] MEDS ORDERED: VENLAFAXINE HC150 MG PO (21:28)
[2018-01-10] MEDS ORDERED: TRAZODONE HCL150 M1 PO (21:30)
--- NOTE | 2018-01-11 13:34 | ED PSYCH CRISIS CONSULTATION ---
Crisis Consult Basic Assessment Date of Consult: 01/11/18 Responsible Person/Accompanied By: sister Chambers Insurance Authorization: Insurance #1: Insurance name: MEDICARE - [employer] Phone number: Policy number: [id number] Group number: Authorization number: ED Provider: Patient's ED Provider: Faisal De La Rosa MD Primary Care Physician: Patient's PCP: Yury Milligan MD PCP's Current Psychiatrist: [facility] Chief Complaint: Psychiatric Related suicidal Patient's Quote: "Yeah, I feel suicidal. I can't do it" Present Illness: Patient is 32 year old, unmarried woman, with an extensive history of psychiatric illness who has been hospitalized a number of times, but states that things have not improved for her, and that they have only gotten worse. She had been in [facility] in [place], [place] until recently, but insists that the 2 weeks that she was there was an inadequate, and she "told them repeatedly" that she was not ready, and that she needed more time, "but I was discharged anyway". Patient rio is living at home, but states that she doews not leave her room very much:does not like her budget and policy analyst at [facility], and does not want to follow with him; is very unhappy about her sister taking over making decisions; and is upset about her 8 year old daughter living with her sister, in [place]. Patient reiterates feeling suicidal, and states she is not eating or drinking anything. Patient reports that a major issue for her is her medical problems, for which she sees Dr. Smith in [place], who prescribes her pain medication, which she is most concerned with. Patient talks about a long history of beiung in pain, and that she feels that shr "just has it worked out about right", but that Dr. Smith keeps wanting to decrease the amount. Her pain and depression render her housebound much of the time. Patient had been cariung for her ailing mother for some time, but her sister made some other arrangements, and, now, she is making plans for her daughter that involve child's biological father, and patient is unhappy aout that. Patient states that she has never felt fully functional, and self medicated with alcohol for years, but that is no longer the case. She did injure her back when she was 20 which made things more difficult. Patient presents as very depressed, and irritated at treaters and her sister. She is questioning medication changes made at [facility]. Patient will need in-patient treatment. Patient's Address: [address] [place] [address] Other Phone Number: Who Do You Live With? Daughter Family/Informants Interviewed: Sylvia Flynn, sister Allergies - Coded Allergies: Penicillins (Severe, HIVES 06/25/17) ibuprofen (Intermediate, HIVES 06/25/17) levofloxacin (Intermediate, "CAUSED MY RUPTURED TENDON" 06/25/17) Sulfa (Sulfonamide Antibiotics) ("MOM TOLD HER SHE WAS ALLERGIC" 06/25/17) metoclopramide (DYSTONIA 06/25/17) Laboratory Results: Laboratory Tests 01/10/182140: Urine Opiates Screen 831.00, Methadone Screen < 40, Barbiturate Screen < 60, Ur Phencyclidine Scrn < 6.00, Amphetamines Screen < 100, U Benzodiazepines Scrn > 800 H, Urine Cocaine Screen < 50, Urine Cannabis Screen 13.60, Urine Test NEGATIVE 01/10/182037: Sodium Cancelled, Potassium Cancelled, Chloride Cancelled, Carbon Dioxide Cancelled, Anion Gap Cancelled, BUN Cancelled, Creatinine Cancelled, BUN/ Creatinine Ratio Cancelled, Glucose Cancelled, Calcium Cancelled 01/10/182006: Anion Gap 10, Estimated GFR > 60, BUN/Creatinine Ratio 11.7, Glucose 120 H, Calcium 9.2, Total Bilirubin 0.3, AST 23, ALT 18, Alkaline Phosphatase 143 H, Total Protein 6.9, Albumin 3.7, Globulin 3.2, Albumin/Globulin Ratio 1.2, CBC w Diff NO MAN DIFF REQ, RBC 4.11 L, MCV 88.5, MCH 29.7, MCHC 33.5, RDW 13.4, MPV 7.6, Gran % 53.6, Lymphocytes % 39.4, Monocytes % 4.8, Eosinophils % 1.7, Basophils % 0.5, Absolute Granulocytes 3.6, Absolute Lymphocytes 2.6, Absolute Monocytes 0.3, Absolute Eosinophils 0.1, Absolute Basophils 0, Serum Alcohol < 10.0 01/10/18 194: Methadone Screen Cancelled, Barbiturate Screen Cancelled, Ur Phencyclidine Scrn Cancelled, Amphetamines Screen Cancelled, U Benzodiazepines Scrn Cancelled, Urine Cocaine Screen Cancelled, Urine Cannabis Screen Cancelled (Jalen FELDMAN,Musa Mccall) Current Medications - Scheduled Medications Bupropion HCl (Wellbutrin XL) 150 MG TAB.ER.24H 1 TAB PO DAILY MENTAL HEALTH # 30 (Reported) Entered as Reported by Jose Jeffries on 12/13/17 0900 Carbamazepine (Carbamazepine XR) 400 MG TAB.ER.12H 1 TAB PO BID MENTAL HEALTH #60 (Reported) Entered as Reported by Jose Jeffries on 12/13/17 0856 Clindamycin HCl 150 MG CAPSULE 1 CAP PO Q8 dental infection #11 CAP Prescribed by Alec Lopez MD on 01/17/18 Cyanocobalamin (Vitamin B-12) 1,000 MCG TABLET 1 TAB PO DAILY low vitamin B12 #14 TAB Prescribed by Alec Lopez MD on 01/17/18 Diazepam 5 MG TABLET 1 TAB PO TID anxiety #120 (Reported) Entered as Reported by Siria Sullivan on 06/25/17 1703 Ergocalciferol (Vitamin D2) (Vitamin D2) 50,000 UNIT CAPSULE 1 CAP PO QTUES SUPPLEMENT (Reported) Entered as Reported by Jose Jeffries on 10/19/14 1356 Fluoxetine HCl 20 MG CAPSULE 2 CAP PO DAILY MENTAL HEALTH #60 (Reported) Entered as Reported by Monica Patel on 01/10/188 Fluoxetine HCl 20 MG CAPSULE 3 CAP PO DAILY AC depression #42 CAP Prescribed by Alec Lopez MD on 01/17/18 Folic Acid 1 MG TABLET 1 TAB PO BID SUPPLEMENT (Reported) Entered as Reported by Jose Jeffries on 10/19/14 1356 Hydroxychloroquine Sulfate 200 MG TABLET 1 TAB PO BID POLYMYSITIS (Reported) Entered as Reported by Jose Jeffries on 10/19/14 1353 Hydroxyzine Pamoate 25 MG CAPSULE 1 CAP PO 4 TIMES/DAY ANXIETY #120 (Reported ) Entered as Reported by Siria Sullivan on 06/25/17 1702 Levothyroxine Sodium (Synthroid) 100 MCG TABLET 1 TAB PO DAILY hypothyroidism #14 TAB Prescribed by Alec Lopez MD on 01/17/18 Methotrexate/Pf (Rasuvo 25 MG/0.5 Ml Autoinj) 25 MG/0.5 ML AUTO.INJCT 1 INJ INJ QMON POLYMYSITIS #2 (Reported) Entered as Reported by Monica Patel on 12/13/17 1853 Last Taken: At an unknown date and time Metoprolol Succinate 50 MG TAB.ER.24H 1 TAB PO QAM HEART/BP #90 (Reported) Entered as Reported by Monica Patel on 06/20/16 1851 Oxycodone HCl (Oxycontin) 60 MG TAB.ER.12H 1 TAB PO BID PAIN (Reported) Entered as Reported by Jose Jeffries on 10/19/14 1355 Oxycodone HCl 30 MG TABLET 1 TAB PO Q4 PAIN (Reported) Entered as Reported by Monica Patel on 01/11/15 1918 Prednisone 10 MG TABLET 1 TAB PO DAILY POLYMYOSITIS (Reported) Entered as Reported by Jose Jeffries on 10/19/14 1352 Pregabalin (Lyrica) 100 MG CAPSULE 1 CAP PO TID PAIN (Reported) Entered as Reported by Monica Patel on 02/26/15 1750 Rivaroxaban (Xarelto) 20 MG TABLET 1 TAB PO QPM BLOOD THINNER (Reported) Entered as Reported by Jose Jeffries on 10/19/14 1356 Trazodone HCl 150 MG TABLET 1 TAB PO QPM MENTAL HEALTH #30 (Reported) Entered as Reported by Monica Patel on 01/10/18 2130 Trazodone HCl 100 MG TABLET 2 TAB PO AT BEDTIME off-label for sleep #28 TAB Prescribed by Alec Lopez MD on 01/17/18 Venlafaxine HCl (Venlafaxine HCl ER) 150 MG CAP.ER.24H 1 CAP PO DAILY MENTAL HEALTH #30 (Reported) Entered as Reported by Monica Patel on 01/10/188 Scheduled PRN Medications Albuterol Sulfate (Proair Hfa) 8.5 GM HFA.AER.AD 2 PUF INH Q4-6 PRN PRN WHEEZE #1 INHAL Prescribed by Yury Cardona MD on 03/19/16 Benzocaine (Orabase) 20 % PASTE..G. 1 ARIA TP Q4P PRN tooth/mouth pain #1 TUBE Prescribed by Alec Lopez MD on 01/17/18 Lidocaine HCl (Lidocaine) (Unknown Strength) OINT...G. 4 OIN TOP BID PRN PAIN (Reported) Entered as Reported by Monica Patel on 12/13/17 5699 (Casandra Yen MD) Past History Past Medical History Neurological: NONE EENT: NONE Cardiovascular: NONE Respiratory: pulmonary embolism, ASTHMA R\\T SPORTS PNA Gastrointestinal: tubular adenoma Hepatic: NONE Renal: NONE Musculoskeletal: chronic back pain, degen joint disease, fibromyalgia, osteoarthritis, MIXED CONNECTIVE TISSUE DISEASE RSD BULGING DISC TENDON TRANSFER POLYMYOCITIS CARPAL TUNNEL R WRIST FX Psychiatric: bipolar disease, depression Endocrine: vitamin D deficiency Blood Disorders: NONE Cancer(s): NONE 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 Reason for Treatment depression, suicidal intent and borderline personality disorder. Dates of Treatment past 10 years Response to Treatment fair Diagnosis by History: Bipolar D/o Opiod Dependance D/O Borderline Personality Disorder Substance Use/Abuse History Drug Use/Abuse Substances Used/Abused Yes Substance Used/Abused Alcohol First Use age 13 Last Used age 19 How much used/taken drank to black out How often almost daily For how long 5+ years Route of use p.o. (Jalen FELDMAN,Musa Mccall) Past Medical History Any Pertinent Medical History? unobtainable Neurological: NONE Past Surgical History Surgical History: unobtainable Psychosocial History Strengths/Capabilities: n/a Substance Abuse Treatment Substance Abuse Treatment Past Substance Abuse [place] No (Casandra Yen MD) Current Mental Status Mental Status Orientation: Person, Place, Situation Affect: Angry, Depressed, Flat, Sad Speech: Pressured Neuro-vegetative: Appetite Decreased, Concentration Poor, Energy Decreased, Loss of Interest Appearance Appearance- Dress/Hygiene: appears to be older than stated age. lethargic Behaviors Thought Process: WNL Thought Content: Somatic Memory: WNL Insight: Fair SI/HI Risk Assessment Past Suicidal Ideation/Attempts Yes Current Suicidal Ideation/Att Yes Past Homicidal Ideation/Att: No Current Homicidal Ideation/Attempts No Degree of Intent: States Intent Danger To: Self Gravely Disabled: Lack of Insight, Poor Judgment Risk Factors: chronic/serious med cond., high anxiety/distress, SA/MH hospitalized, substance abuse, isolate/no social support, poor impulse control, lives alone, limited support Lethality Ratin PTSD Checklist PTSD Done? pt unable to participate ED Management Sitter: Yes Restraints: No (Musa Bazan) DSM5/PS Stressors/Medical Prob Diagnosis' (DSM 5, Stressors, Medical): Major Depressive Disorder, severe, recurrent F 33,2 Opiate Use disorder F11.10 (prescribed) Borderline Personality Disorder F60.3 Current GAF: 22 Comments: Patient is very pessimistic about improvement. Patient is angry with other, including her family and her treaters (Musa Bazan) Departure Disposition Psych Medical Clearance Date: 01/11/18 Medically Cleared at: 1000 Time Started: 1115 Time Ended: 1210 Psychiatrist Consulted: Casandra Yen MD Date Disposition Established: 01/11/18 Time Disposition Established: 1300 Plan for Disposition - Modality: try to decrease amount of pain medication while in the E.D. Re- evaluate Referrals Chel WANG,Yury Javier (PCP/Family) (Musa Bazan)
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
[2018-01-12 07:43] VITALS: BP 136/86
--- NOTE | 2018-01-12 08:42 | Cons- Medical ---
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 She follows with engineering program analyst Dr. Smith and her PCP Dr. Milligan and is here with depressive symptoms. She has chronic sterid dependence and chronic opiate dependence secondary to pain. She is not a very reliable informant and answers yes to most complaints elicited. She has multiple complaints and seems very focused on her pain medication, when she is getting it and the schedule. She says that she has issues with her joints and hence she takes the prednisone, plaquinal and methotrexate. She denies shortness of breath or cough. She denies constipation, denies nausea or vomiting and denies fevers or chills. She says that she thinks she has a dental abscess because she is having pain in her tooth but there is been no fevers or chills. She also has morbid obesity with a BMI of 51, and a history of VTE on Xarelto. Allergies/Medications Allergies: Coded Allergies: Penicillins (Severe, HIVES 06/25/17) ibuprofen (Intermediate, HIVES 06/25/17) levofloxacin (Intermediate, "CAUSED MY RUPTURED TENDON" 06/25/17) Sulfa (Sulfonamide Antibiotics) ("MOM TOLD HER SHE WAS ALLERGIC" 06/25/17) metoclopramide (DYSTONIA 06/25/17) Home Med List: Albuterol Sulfate (Proair Hfa) 8.5 GM HFA.AER.AD 2 PUF INH Q4-6 PRN PRN WHEEZE Bupropion HCl (Wellbutrin XL) 150 MG TAB.ER.24H 1 TAB PO DAILY MENTAL HEALTH (Reported) Carbamazepine (Carbamazepine XR) 400 MG TAB.ER.12H 1 TAB PO BID MENTAL HEALTH (Reported) Diazepam 5 MG TABLET 1 TAB PO 4 TIMES/DAY ANXIETY (Reported) Ergocalciferol (Vitamin D2) (Vitamin D2) 50,000 UNIT CAPSULE 1 CAP PO QTUES SUPPLEMENT (Reported) Fluoxetine HCl 20 MG CAPSULE 2 CAP PO DAILY MENTAL HEALTH (Reported) Folic Acid 1 MG TABLET 1 TAB PO BID SUPPLEMENT (Reported) Hydroxychloroquine Sulfate 200 MG TABLET 1 TAB PO BID POLYMYSITIS (Reported) Hydroxyzine Pamoate 25 MG CAPSULE 1 CAP PO 4 TIMES/DAY ANXIETY (Reported) Lidocaine HCl (Lidocaine) (Unknown Strength) OINT...G. (Unknown Dose) TOP PRN PAIN (Reported) Methotrexate/Pf (Rasuvo 25 MG/0.5 Ml Autoinj) 25 MG/0.5 ML AUTO.INJCT 1 INJ INJ QMON POLYMYSITIS (Reported) Metoprolol Succinate 50 MG TAB.ER.24H 1 TAB PO QAM HEART/BP (Reported) Oxycodone HCl (Oxycontin) 60 MG TAB.ER.12H 1 TAB PO BID PAIN (Reported) Oxycodone HCl 30 MG TABLET 1 TAB PO Q4 PAIN (Reported) Prednisone 10 MG TABLET 1 TAB PO DAILY POLYMYOSITIS (Reported) Pregabalin (Lyrica) 100 MG CAPSULE 1 CAP PO TID PAIN (Reported) Rivaroxaban (Xarelto) 20 MG TABLET 1 TAB PO QPM BLOOD THINNER (Reported) with food Trazodone HCl 150 MG TABLET 1 TAB PO QPM MENTAL HEALTH (Reported) Venlafaxine HCl (Venlafaxine HCl ER) 150 MG CAP.ER.24H 1 CAP PO DAILY MENTAL HEALTH (Reported) Current Medications: Current Medications Sig/Paul Start time Last Medication Dose Route Stop Time Status Admin Bupropion HCl 150 MG DAILY 01/11 1000 AC 01/11 PO 1045 Carbamazepine 400 MG BID 01/11 2359 AC 01/12 PO 0153 Diazepam 5 MG TID 01/12 1000 AC PO Diazepam 0 .STK-MED ONE 01/11 1054 DC PO Diazepam 5 MG 4 TIMES/DAY 01/11 0101 DC 01/11 PO 2314 Fluoxetine HCl 40 MG DAILY 01/11 1000 AC 01/11 PO 1045 Hydroxychloroquine 200 MG BID 01/11 0101 AC 01/11 Sulfate PO 2313 Hydroxyzine HCl 0 .STK-MED ONE 01/11 1637 DC PO Hydroxyzine HCl 25 MG Q6 01/11 0102 AC 01/12 PO 0709 Metoprolol Succinate 50 MG QAM 01/11 1000 AC 01/11 PO 1045 Oxycodone HCl 60 MG Q12 01/11 2359 AC 01/12 PO 0152 Oxycodone HCl 0 .STK-MED ONE 01/11 1636 DC PO Oxycodone HCl 30 MG Q6 01/11 1500 AC 01/12 PO 0709 Oxycodone HCl 0 .STK-MED ONE 01/11 1055 DC PO Oxycodone HCl 30 MG Q4 01/11 1000 DC 01/11 PO 1052 Prednisone 10 MG DAILY 01/11 1000 AC 01/11 PO 1046 Pregabalin 100 MG .STK-MED ONE 01/11 2312 DC PO 01/11 2313 Pregabalin 0 .STK-MED ONE 01/11 1639 DC PO Pregabalin 0 .STK-MED ONE 01/11 1054 DC PO Pregabalin 100 MG TID 01/11 0103 AC 01/11 PO 2313 Trazodone HCl 150 MG AT BEDTIME 01/12 2200 DC PO Trazodone HCl 150 MG AT BEDTIME 01/12 0030 AC 01/12 PO 0152 Venlafaxine HCl 150 MG 0800 01/12 0800 AC 01/12 PO 0830 Review of Systems Review of Systems Constitutional: Reports: no symptoms, malaise, weakness. EENTM: Reports: no symptoms, tooth pain. Cardiovascular: Denies: no symptoms, chest pain, edema, orthopena. Respiratory: Denies: no symptoms, cough, hemoptysis. GI: Denies: no symptoms, bloating, constipation, diarrhea. Genitourinary: Denies: no symptoms, pain, urgency. Musculoskeletal: Reports: no symptoms, joint pain, muscle pain. All Other Systems: Reviewed and Negative Past History Travel History Traveled to [place] past 21 day No Medical History Neurological: NONE EENT: NONE Cardiovascular: NONE Respiratory: pulmonary embolism, ASTHMA R\\T SPORTS PNA Gastrointestinal: tubular adenoma Hepatic: NONE Renal: NONE Musculoskeletal: chronic back pain, degen joint disease, fibromyalgia, osteoarthritis, MIXED CONNECTIVE TISSUE DISEASE RSD BULGING DISC TENDON TRANSFER POLYMYOCITIS CARPAL TUNNEL R WRIST FX Psychiatric: bipolar disease, depression Endocrine: vitamin D deficiency Blood Disorders: NONE Cancer(s): NONE GAME WARDEN/Reproductive: NONE Other Medical Hx: MIXED CONNECTIVE TISSUE DISORDER Surgical History Surgical History: non-contributory Family History Relations & Conditions If Any: Relation not specified for: FH: lung cancer FH: thyroid condition Psychosocial History Where Do You Live? Home Who Do You Live With? child Services at Home: None Smoking Status: Former Smoker ETOH Use: denies use Illicit Drug Use: marijuana Other Social History: Pt lives at home with her daughter. She says her father had COPD, heart disease and lung cancer. Her mother has been diagnosed with dementia and prediabetes. She said she's had gallbladder surgery, carpal tunnel release and tendon release surgeries. Exam & Diagnostic Data Last 24 Hrs of Vital Signs/I&O Vital Signs Date Time Temp Pulse Resp B/P B/P Pulse O2 O2 Flow FiO2 Mean Ox Delivery Rate 01/12 0743 97.0 94 136/86 01/11 2132 98.5 90 18 134/82 97 Room Air Room Air 01/11 1850 98.1 97 18 145/90 96 Room Air 01/11 1556 97.8 98 18 112/76 96 Room Air 01/11 1205 97.9 96 18 108/74 94 Room Air 01/11 1001 98.4 98 18 110/84 91 Room Air Intake & Output 01/12 1600 01/12 0800 01/12 0000 Intake Total Output Total Balance Patient 150.252 kg Weight Physical Exam General Appearance: anxious, mild distress Head: atraumatic, normal appearance Eyes: Bilateral: normal appearance, PERRL, EOMI. Ears, Nose, Throat: normal pharynx, normal ENT inspection, hearing grossly normal Neck: normal inspection, supple, full range of motion Respiratory: normal breath sounds, chest non-tender, no respiratory distress, quiet respiration Cardiovascular: regular rate/rhythm Gastrointestinal: normal bowel sounds, soft, non-tender Back: normal inspection, normal range of motion Extremities: normal capillary refill, normal range of motion, no edema Neurologic/Psych: no motor/sensory deficits, awake, alert, oriented x 3, normal gait Other Physical Findings: Is alert and oriented 3, her gait is normal, cranial nerves 3-12 appear grossly intact. Reflexes are 2+ and symmetric and gross motor and sensory appear normal. No cerebellar signs. Last 24 Hrs of Labs/Izaiah: Laboratory Tests 01/10 Chemistry Sodium (137 - 145 mmol/L) Cancelled 137 Potassium (3.5 - 5.1 mmol/L) Cancelled 3.9 Chloride (98 - 107 mmol/L) Cancelled 96 L Carbon Dioxide (22 - 30 mmol/L) Cancelled 31 H Anion Gap (5 - 16) Cancelled 10 BUN (7 - 17 mg/dL) Cancelled 7 Creatinine (0.5 - 1.0 mg/dL) Cancelled 0.6 Estimated GFR (>60 ml/min) > 60 BUN/Creatinine Ratio (7 - 25 %) Cancelled 11.7 Glucose (65 - 99 mg/dL) Cancelled 120 H Calcium (8.4 - 10.2 mg/dL) Cancelled 9.2 Total Bilirubin (0.2 - 1.3 mg/dL) 0.3 AST (14 - 36 U/L) 23 ALT (9 - 52 U/L) 18 Alkaline Phosphatase (<127 U/L) 143 H Total Protein (6.3 - 8.2 g/dL) 6.9 Albumin (3.5 - 5.0 g/dL) 3.7 Globulin (1.9 - 4.2 gm/dL) 3.2 Albumin/Globulin Ratio (1.1 - 2.2 %) 1.2 Hematology CBC w Diff NO MAN DIFF REQ WBC (4.8 - 10.8 /CUMM) 6.7 RBC (4.20 - 5.40 /CUMM) 4.11 L Hgb (12.0 - 16.0 G/DL) 12.2 Hct (37 - 47 %) 36.4 L MCV (81.0 - 99.0 FL) 88.5 MCH (27.0 - 31.0 PG) 29.7 MCHC (33.0 - 37.0 G/DL) 33.5 RDW (11.5 - 14.5 %) 13.4 Plt Count (130 - 400 /CUMM) 283 MPV (7.4 - 10.4 FL) 7.6 Gran % (42.2 - 75.2 %) 53.6 Lymphocytes % (20.5 - 51.1 %) 39.4 Monocytes % (1.7 - 9.3 %) 4.8 Eosinophils % (0 - 5 %) 1.7 Basophils % (0.0 - 2.0 %) 0.5 Absolute Granulocytes (1.4 - 6.5 /CUMM) 3.6 Absolute Lymphocytes (1.2 - 3.4 /CUMM) 2.6 Absolute Monocytes (0.10 - 0.60 /CUMM) 0.3 Absolute Eosinophils (0.0 - 0.7 /CUMM) 0.1 Absolute Basophils (0.0 - 0.2 /CUMM) 0 Toxicology Urine Opiates Screen (>2000 NG/ML) 831.00 Methadone Screen (>300 NG/ML) < 40 Barbiturate Screen (>200 NG/ML) < 60 Ur Phencyclidine Scrn (>25 NG/ML) < 6.00 Amphetamines Screen (>1000 NG/ML) < 100 U Benzodiazepines Scrn (>200 NG/ML) > 800 H Urine Cocaine Screen (>300 NG/ML) < 50 Urine Cannabis Screen (>50 NG/ML) 13.60 Serum Alcohol (<10 MG/DL) < 10.0 Urines Urine Test NEGATIVE 01/10 1941 Toxicology Methadone Screen Cancelled Barbiturate Screen Cancelled Ur Phencyclidine Scrn Cancelled Amphetamines Screen Cancelled U Benzodiazepines Scrn Cancelled Urine Cocaine Screen Cancelled Urine Cannabis Screen Cancelled Assessment/Plan Assessment/Plan Very complex 52-year-old female with multiple medical problems including mixed connective tissue disease/polymyositis on chronic prednisone therapy with Plaquinal and questionable weekly methotrexate. In addition history of VTE, patient can't really tell me when was her last clot but she takes Xarelto chronically. Morbid obesity, tachycardia for which she is on metoprolol and chronic opiate dependence. She is here with acute depressive symptoms and suicidality. Treatment as per psych for now. Patient has multiple complaints and will need close outpatient follow-up both with her PCP and her engineering program analyst on discharge. For now would continue her steroids, plaquinal and her methotrexate. Noted methotrexate is given weekly. Get collateral info from patient's primary care physician Dr. Simental patient's engineering program analyst Dr. Smith. She is afebrile and doesn't have leukocytosis. She will need dental follow-up on discharge. Problem List: 1. Anxiety and depression 2. History of DVT (deep vein thrombosis) 3. Connective tissue disease, undifferentiated Copies To: Chel WANG,Yury Javier; Luis WANG,Stoney Consult Acknowledgment - Thank you for your consult request.
[2018-01-12 12:00] VITALS: BP 137/77
--- NOTE | 2018-01-12 13:52 | CPS PROVIDER INIT ASMT PSYCH ---
Psychiatric Admission Cigar Binder's Note Reviewed: Yes Patient Seen and Examined: Yes Identifying Information: 32yoF Chief Complaint: "things have been bad" Reaction to Hospitalization: too early History of Present Illness Onset of Illness: decades Circumstances Leading to Admission: DCF removing daughter Problem(s) Justifying Need for Admission: worsening SI Other HPI: Pt notes that she has no coping skills and no social supports. This had made dealing with stressors-- codependent relationship with mother and mother recent , difficult relationship with aunt, and daughter being removed from her custody by DCF. Pt notes that she is "constantly triggered." Notes no active SI but near constant passive SI. She notes that anxiety and pain are big stressors. Past Psychiatric History Past Diagnosis(es)- if any: MDD Bipolar disorder Borderline personality disorder PTSD Social anxiety Generalized anxiety disorder Past Precipitating Factors- if any: DCF removal - Include inpatient and outpatient treatment Treatment History: Passive SI leading to two hospitalizations, most recent in early 2018. Seen by Siria Cee at case History of Suicide Attempts or Gestures denied attempts put constant passive SI Substance Abuse History: tobacco: former smoker alcohol: previous heavy drinker from [age]yo drinking almost daily, none for years illicits: mj from time to time Allergies: Coded Allergies: Penicillins (Severe, HIVES 06/25/17) ibuprofen (Intermediate, HIVES 06/25/17) levofloxacin (Intermediate, "CAUSED MY RUPTURED TENDON" 06/25/17) Sulfa (Sulfonamide Antibiotics) ("MOM TOLD HER SHE WAS ALLERGIC" 06/25/17) metoclopramide (DYSTONIA 06/25/17) Home Med List: see H&P - Include any medical condition(s) that may - impact the patient's recovery/remission Past Medical History: extensive for chronic pain Past History Medical History Neurological: NONE EENT: NONE Cardiovascular: NONE Respiratory: pulmonary embolism, ASTHMA R\\T SPORTS PNA Gastrointestinal: tubular adenoma Hepatic: NONE Renal: NONE Musculoskeletal: chronic back pain, degen joint disease, fibromyalgia, osteoarthritis, MIXED CONNECTIVE TISSUE DISEASE RSD BULGING DISC TENDON TRANSFER POLYMYOCITIS CARPAL TUNNEL R WRIST FX Psychiatric: bipolar disease, depression Endocrine: vitamin D deficiency Blood Disorders: NONE Cancer(s): NONE 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 Other Medical Hx: MIXED CONNECTIVE TISSUE DISORDER History of MRSA: No History of VRE: No History of CDIFF: No Isolation History: Standard Surgical History Surgical History: cholecystectomy, TENDON TRANSFER, ANAL FISSURE REMOVED, CARPAL TUNNEL Psychiatric Family/Social Hx Family History Psychiatric Illness: mother with SAD, sisters with anxiety and depression, aunts with unspecified mental illness mother with passive SI Substance Use: denied Suicides: mother with passive SI Social History Living Situation: with daughter, now in [facility] custody Significant Relationships (family/friends): aunt Education: graduate Vocation/Occupation: on disability Legal: [facility] case Healthly Behaviors Screening Tobacco Screening Tobacco Use from ED Docu: Never used - If tobacco counseling indicated - the following topics are required. - #1 Recognizing dangerous situations. - #2 Coping Skills. - #3 Basic information about quitting. Status of Tobacco Cessation Counseling: Not Applicable Cessation Med Status Not Applicable Alcohol Screening - ETOH screen POS if BAL >=80 or Audit-C>= M4/F3 Audit-C Score from Diag Assess: 0 Blood Alcohol Level: Laboratory Tests 01/10 2007 Toxicology Serum Alcohol (<10 MG/DL) < 10.0 Alcohol Use Screening Results: Neg per Audit C &/or BAL - If ETOH counseling indicated - the following topics are required. - #1 Express concern about the patient's - drinking at unhealthy levels, include informing - of national norms for moderate drinking: - men <= 14 drinks/week, max 4 drinks/occasion - women <= 7 drinks/week, max 3 drinks/occasion - #2 Providing feedback, including linking alcohol to - negative physical effects (liver injury, hypertension) - negative emotional effects (relationship problems and - depression) - negative occupational consequences (reduced work - performance) - #3 Advising the patient to abstain from alcohol or - to drink below national norms for moderate drinking - (as listed above). Status of ETOH Use Counseling: N/A B/C NO ETOH Use Metabolic Screening - Screen if on a Neuroleptic Medication - Metabolic screening should include: - Blood Pressure, BMI, Glucose or Hgb A1c, & a - Lipid profile from within the past 365 days. Metabolic Screening Laboratory Tests 01/10 Chemistry Sodium (137 - 145 mmol/L) Cancelled 137 Potassium (3.5 - 5.1 mmol/L) Cancelled 3.9 Chloride (98 - 107 mmol/L) Cancelled 96 L Carbon Dioxide (22 - 30 mmol/L) Cancelled 31 H Anion Gap (5 - 16) Cancelled 10 BUN (7 - 17 mg/dL) Cancelled 7 Creatinine (0.5 - 1.0 mg/dL) Cancelled 0.6 Estimated GFR (>60 ml/min) > 60 BUN/Creatinine Ratio (7 - 25 %) Cancelled 11.7 Glucose (65 - 99 mg/dL) Cancelled 120 H Calcium (8.4 - 10.2 mg/dL) Cancelled 9.2 Total Bilirubin (0.2 - 1.3 mg/dL) 0.3 AST (14 - 36 U/L) 23 ALT (9 - 52 U/L) 18 Alkaline Phosphatase (<127 U/L) 143 H Total Protein (6.3 - 8.2 g/dL) 6.9 Albumin (3.5 - 5.0 g/dL) 3.7 Globulin (1.9 - 4.2 gm/dL) 3.2 Albumin/Globulin Ratio (1.1 - 2.2 %) 1.2 Hematology CBC w Diff NO MAN DIFF REQ WBC (4.8 - 10.8 /CUMM) 6.7 RBC (4.20 - 5.40 /CUMM) 4.11 L Hgb (12.0 - 16.0 G/DL) 12.2 Hct (37 - 47 %) 36.4 L MCV (81.0 - 99.0 FL) 88.5 MCH (27.0 - 31.0 PG) 29.7 MCHC (33.0 - 37.0 G/DL) 33.5 RDW (11.5 - 14.5 %) 13.4 Plt Count (130 - 400 /CUMM) 283 MPV (7.4 - 10.4 FL) 7.6 Gran % (42.2 - 75.2 %) 53.6 Lymphocytes % (20.5 - 51.1 %) 39.4 Monocytes % (1.7 - 9.3 %) 4.8 Eosinophils % (0 - 5 %) 1.7 Basophils % (0.0 - 2.0 %) 0.5 Absolute Granulocytes (1.4 - 6.5 /CUMM) 3.6 Absolute Lymphocytes (1.2 - 3.4 /CUMM) 2.6 Absolute Monocytes (0.10 - 0.60 /CUMM) 0.3 Absolute Eosinophils (0.0 - 0.7 /CUMM) 0.1 Absolute Basophils (0.0 - 0.2 /CUMM) 0 Toxicology Urine Opiates Screen (>2000 NG/ML) 831.00 Methadone Screen (>300 NG/ML) < 40 Barbiturate Screen (>200 NG/ML) < 60 Ur Phencyclidine Scrn (>25 NG/ML) < 6.00 Amphetamines Screen (>1000 NG/ML) < 100 U Benzodiazepines Scrn (>200 NG/ML) > 800 H Urine Cocaine Screen (>300 NG/ML) < 50 Urine Cannabis Screen (>50 NG/ML) 13.60 Serum Alcohol (<10 MG/DL) < 10.0 Urines Urine Test NEGATIVE 01/10 1941 Toxicology Methadone Screen Cancelled Barbiturate Screen Cancelled Ur Phencyclidine Scrn Cancelled Amphetamines Screen Cancelled U Benzodiazepines Scrn Cancelled Urine Cocaine Screen Cancelled Urine Cannabis Screen Cancelled Exam and Plan Mental Status Examination Ambulation Status: walking freely Appearance: obese Attitude towards examiner: cooperative but defensive around meds Psychomotor activity: no retardation or agitation Behavior: cooperative Quality of speech: nl r/r/v/p Affect: irritable, constricted, non-labile, appropriate Mood: "not good" Suicidal Ideation: notes chronic passive SI Homicidal Ideation: denied Hallucinations: denied Paranoid/Delusional Material: denied Difficulties with thought organization: none noted Insight: poor Judgment: poor Orientation: a/o x4 Cognition: grossly intact Memory Function: grossly intact Estimate of intellectual functioning: average Assets/Strengths Patient Identified Assets/Strengths: able to communicate and seek help Impression/Plan Impression and Plan: Pt with extensive psychiatric hx with worsening depression and SI in the setting of DCF removal of her daughter. - Include all active medical diagnosis that require tx DSM 5 Diagnosis(es): Mood disorder - Initial Tx Plan for Active Psych & Medical Conditions Treatment Plan: Verified controlled substances on [place] Decreased valium Decreased oxycontin Increased fluoxetine as may help underlying mood distrubance As pt stated, needs to develop some coping skills Need collateral from her variety of treaters - Factors that would help patient function - in a less restrictive setting. Factors: no coping skills
[2018-01-12 15:53] VITALS: BP 146/88
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
--- NOTE | 2018-01-12 17:56 | RADIOLOGY REPORT ---
EXAMINATION: XR WRIST, LEFT CLINICAL INFORMATION: Pain and limited range of motion. History of worsening wrist pain. Unclear trauma. COMPARISON: Left hand films dated 06/20/2016. TECHNIQUE: 4 views of the left wrist. FINDINGS: No acute fracture or dislocation. Minimal spurring at the first carpometacarpal joint. Slight widening of the scapholunate interval is seen, suspicious for scapholunate ligament tear. Approximately 2 mm of negative ulnar variance are again noted. No soft tissue calcifications or radiopaque foreign bodies. IMPRESSION: 1. No acute fracture or dislocation. 2. Minimal degenerative changes at the first carpometacarpal joint. 3. Suspicion of scapholunate ligament tear. 4. 2 mm negative ulnar variance. No evidence of Kienbock's disease.
[2018-01-12 20:07] VITALS: BP 144/77
[2018-01-12 23:51] VITALS: BP 129/63
[2018-01-13 06:11] VITALS: BP 134/66
[2018-01-13 08:21] VITALS: BP 145/76
--- NOTE | 2018-01-13 11:52 | CP SOUTH PROGRESS NOTE PSYCH ---
See Addendum Psych (Inpt) Progress Note Progress Note Include the following elements, when applicable: Involvement in the active treatment of the patient with behavioral observations of the patient and the patient's response to the treatment. Review of the ongoing treatment process in the context of the treatment plan. Indication of how multi-disciplinary staff members are carrying out the treatment plan. Plans for future interventions and recommendations for revision of the treatment plan. Liaison with other physicians/providers. Progress Note: Pt notes she continues to have L wrist pain. She slept well overnight and is napping today. She notes continued anxiety and depression but no SI or HI. Current Medications Sig/Paul Start time Last Medication Dose Route Stop Time Status Admin Bupropion HCl 150 MG DAILY 01/11 1000 DC 01/11 PO 1045 Carbamazepine 400 MG BID 01/11 2359 AC 01/13 PO 0937 Diazepam 5 MG 0700,1200,1900 01/13 0700 AC 01/13 PO 0702 Diazepam 5 MG TID 01/12 1000 DC 01/12 PO 01/12 2300 2142 Fluoxetine HCl 60 MG DAILY AC 01/13 0700 AC 01/13 PO 0702 Fluoxetine HCl 40 MG DAILY 01/11 1000 DC 01/12 PO 0953 Hydroxychloroquine 200 MG BID 01/11 0101 AC 01/13 Sulfate PO 0937 Hydroxyzine HCl 25 MG Q6 01/11 0102 AC 01/13 PO 0612 Lidocaine 1 ARIA BID PRN 01/12 1330 AC 01/12 TOP 1621 Metoprolol Succinate 50 MG QAM 01/11 1000 AC 01/13 PO 0937 Oxycodone HCl 60 MG Q12H 01/12 1900 AC 01/13 PO 0702 Oxycodone HCl 60 MG Q12 01/11 2359 DC 01/12 PO 0957 Oxycodone HCl 30 MG Q6 01/11 1500 AC 01/13 PO 0612 Prednisone 10 MG DAILY 01/11 1000 AC 01/13 PO 0937 Pregabalin 100 MG TID 01/12 1621 AC 01/13 PO 0938 Pregabalin 100 MG TID 01/11 0103 DC 01/12 PO 1000 Rivaroxaban 20 MG 1700 01/12 1700 AC 01/12 PO 1623 Trazodone HCl 200 MG AT BEDTIME 01/12 2200 AC 01/12 PO 2143 Trazodone HCl 150 MG AT BEDTIME 01/12 0030 DC 01/12 PO 0152 Venlafaxine HCl 150 MG 0800 01/12 0800 AC 01/13 PO 0937 Laboratory Tests 01/10 Chemistry Sodium (137 - 145 mmol/L) Cancelled 137 Potassium (3.5 - 5.1 mmol/L) Cancelled 3.9 Chloride (98 - 107 mmol/L) Cancelled 96 L Carbon Dioxide (22 - 30 mmol/L) Cancelled 31 H Anion Gap (5 - 16) Cancelled 10 BUN (7 - 17 mg/dL) Cancelled 7 Creatinine (0.5 - 1.0 mg/dL) Cancelled 0.6 Estimated GFR (>60 ml/min) > 60 BUN/Creatinine Ratio (7 - 25 %) Cancelled 11.7 Glucose (65 - 99 mg/dL) Cancelled 120 H Calcium (8.4 - 10.2 mg/dL) Cancelled 9.2 Total Bilirubin (0.2 - 1.3 mg/dL) 0.3 AST (14 - 36 U/L) 23 ALT (9 - 52 U/L) 18 Alkaline Phosphatase (<127 U/L) 143 H Total Protein (6.3 - 8.2 g/dL) 6.9 Albumin (3.5 - 5.0 g/dL) 3.7 Globulin (1.9 - 4.2 gm/dL) 3.2 Albumin/Globulin Ratio (1.1 - 2.2 %) 1.2 Hematology CBC w Diff NO MAN DIFF REQ WBC (4.8 - 10.8 /CUMM) 6.7 RBC (4.20 - 5.40 /CUMM) 4.11 L Hgb (12.0 - 16.0 G/DL) 12.2 Hct (37 - 47 %) 36.4 L MCV (81.0 - 99.0 FL) 88.5 MCH (27.0 - 31.0 PG) 29.7 MCHC (33.0 - 37.0 G/DL) 33.5 RDW (11.5 - 14.5 %) 13.4 Plt Count (130 - 400 /CUMM) 283 MPV (7.4 - 10.4 FL) 7.6 Gran % (42.2 - 75.2 %) 53.6 Lymphocytes % (20.5 - 51.1 %) 39.4 Monocytes % (1.7 - 9.3 %) 4.8 Eosinophils % (0 - 5 %) 1.7 Basophils % (0.0 - 2.0 %) 0.5 Absolute Granulocytes (1.4 - 6.5 /CUMM) 3.6 Absolute Lymphocytes (1.2 - 3.4 /CUMM) 2.6 Absolute Monocytes (0.10 - 0.60 /CUMM) 0.3 Absolute Eosinophils (0.0 - 0.7 /CUMM) 0.1 Absolute Basophils (0.0 - 0.2 /CUMM) 0 Toxicology Urine Opiates Screen (>2000 NG/ML) 831.00 Methadone Screen (>300 NG/ML) < 40 Barbiturate Screen (>200 NG/ML) < 60 Ur Phencyclidine Scrn (>25 NG/ML) < 6.00 Amphetamines Screen (>1000 NG/ML) < 100 U Benzodiazepines Scrn (>200 NG/ML) > 800 H Urine Cocaine Screen (>300 NG/ML) < 50 Urine Cannabis Screen (>50 NG/ML) 13.60 Serum Alcohol (<10 MG/DL) < 10.0 Urines Urine Test NEGATIVE Xray FINDINGS: No acute fracture or dislocation. Minimal spurring at the first carpometacarpal joint. Slight widening of the scapholunate interval is seen, suspicious for scapholunate ligament tear. Approximately 2 mm of negative ulnar variance are again noted. No soft tissue calcifications or radiopaque foreign bodies. IMPRESSION: 1. No acute fracture or dislocation. 2. Minimal degenerative changes at the first carpometacarpal joint. 3. Suspicion of scapholunate ligament tear. 4. 2 mm negative ulnar variance. No evidence of Kienbock's disease. MSE General appearance: fair hygiene and grooming; Attitude: cooperative; Eye contact: appropriate; Movement: + psychomotor slowing; Speech: nl fluency, nl rate/rhythm, nl volume, nl prosody; Mood: "OK" Affect: irritable, flat, appropriate, constricted, non-labile, congruent; Thought process: linear and goal-directed; Thought content: denied SI or HI, no paranoid ideation; Perception: denied hallucinations- auditory, visual, does not appear to be responding to internal stimuli; I/J: limited A/P: Pt with extensive psychiatric hx with worsening depression and SI in the setting of DCF removal of her daughter. Asked HOD to see patient re ligament tear, if needed may need to refer to ortho Continue current medications Encourage groups and the development of coping skills
[2018-01-13 12:13] VITALS: BP 150/83
[2018-01-13 15:35] VITALS: BP 118/69
[2018-01-13 20:14] VITALS: BP 131/81
[2018-01-14 06:08] VITALS: BP 136/77
[2018-01-14 12:11] VITALS: BP 115/75
[2018-01-14 16:06] VITALS: BP 133/69
--- NOTE | 2018-01-14 16:21 | SOCIAL WORKER PROG NOTE PSYCH ---
Social Work Progress Note Progress Note This fiction and nonfiction writer prose met with patient. Patient reported feeling increased anxiety/ depression resulting in current hospital admission. She stated that she felt that IOP at [facility] had not been helpful, however, acknowledged that she had only attended 2 weeks and was willing to return to [facility]. She stated that she would like to find an individual therapist and did not want to continue with individual therapy at [facility]. Patient also expressed more groups that focus on coping skills. Patient stated that she smokes MJ 1-2 times about every three months to manage her physical pain. She denied any other substance use. She denied SI/HI/AH/VH. Patient signed GABRIEL's for [facility] (Eligio Case), [facility] and her sister, Sylvia Flynn ([phone]). Patient was agreeable to a family session with her sister, Sylvai.
--- NOTE | 2018-01-14 16:45 | CP SOUTH PROGRESS NOTE PSYCH ---
Psych (Inpt) Progress Note Progress Note Include the following elements, when applicable: Involvement in the active treatment of the patient with behavioral observations of the patient and the patient's response to the treatment. Review of the ongoing treatment process in the context of the treatment plan. Indication of how multi-disciplinary staff members are carrying out the treatment plan. Plans for future interventions and recommendations for revision of the treatment plan. Liaison with other physicians/providers. Progress Note: Dr. Ruyb Pruitt's notes reviewed. Case discussed with nursing staff, who reports that the patient is here for depression and suicidal ideation. She is on a significant amount of pain medication. Reportedly has borderline personality disorder. Has been fixated on pain and her pain medication. Reported left wrist pain and apparently has a ligament tear. Has a left wrist splint. Denying suicidal ideation. Minimally depressed. Lies in bed after receiving pain medication. Patient seen at 12:56 PM. She is a 32-year-old obese white woman who was admitted on 01/11/18 in the context of having constant passive suicidal ideation. Reported stressors were anxiety and pain. DCF apparently removed the patient's 8-year-old daughter, who now is staying with the patient's sister. Past psychiatric history: Patient attends IOP at [facility] and sees Siria Cameron APRN. Patient reports this is her third psychiatric hospitalization, having been at before and also at [facility]. Denies history of suicide attempts. Substance abuse history: Reports she quit tobacco 11 years ago. Reports she quit alcohol use 9 years ago. Reports using marijuana every once in a while for pain. I recommended that she cease all marijuana use. Denies use of cocaine. Denies opiate abuse. Medications prior to admission: Albuterol 2 puffs every 4-6 hours as needed Tegretol-XR 400 mg twice daily Diazepam 5 mg 4 times a day Ergocalciferol 50,000 units every Sunday Fluoxetine 40 mg daily Folic acid 1 mg twice daily Hydrochlorquine sulfate 200 mg twice daily Hydroxyzine 25 mg 4 times a day Lidocaine ointment topically as needed for pain Methotrexate 25 mg per 0.5 mL, 1 injection every Sunday Metoprolol succinate 50 mg every morning OxyContin 60 mg twice daily Oxycodone 30 mg 4 times a day Prednisone 10 mg daily Lyrica 100 mg 3 times daily Xarelto 20 mg every afternoon Trazodone 150 mg every PM Effexor XR 150 mg daily Allergies: Penicillin, sulfa, ibuprofen, Reglan. Past medical history: Obesity, polymyositis, mixed connective tissue disease, fibromyalgia, history of pulmonary embolus exercise-induced asthma, pneumonia tubular adenoma, chronic back pain, degenerative joint disease, osteoarthritis, RSD, bulging disc, tendon transfer, bilateral carpal tunnel, left wrist fracture, vitamin D deficiency. Family psychiatric and substance abuse history: Mother has schizoaffective disorder. Patient believes there is depression on mother's side. Patient reports there are drinkers on mother's side. No suicides in the family. Social history: Lives alone in [place]. One month ago, DCF removed the patient's 8-year-old daughter and placed her at the patient's sister's home in [place]. Daughter may not visit the patient's house because the house was found to be too messy. 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 Grew up in [place]. Patient has 2 adopted older brothers. Father in 2005. Sister lives in [place]. Half sister lives in [place]. Patient has no contact with her. Patient attended some college. She last worked in 2012. She is on disability. No history of arrests. Mental status examination: The patient is an obese, ambulatory white woman dressed in all black clothing. Her left wrist is in a splint. She is using a rolling walker to help with ambulation. She is sitting in a chair in no acute distress. She is calm, polite and cooperative. There is no psychomotor agitation or retardation. Speech is normal in volume, rate and tone. Affect is calm and euthymic. Patient reports that she decided we should probably have a family meeting, as her sister could reportedly tell me the patient's story a lot better. Patient reports she is dealing with various psychiatric issues and has been feeling overwhelmed and hopeless. She feels guilty because she cannot do the things she is supposed to be able to do. Reports grieving her mother's move. Patient lived with mother for 15 years. Mother reportedly has dementia. Aunt is now mother's conservator and aunt moved patient's mother to [place]. Aunt reportedly limits the patient's contact with her mother. Patient reports conflict with aunt and she had expressed violent thoughts towards aunt. Patient reports she had suicidal thoughts for 2-3 hours prior to admission. Suicidal thoughts fluctuate. Reports mood currently is thoroughly exhausted. States she can barely keep her legs up. Rates sad mood probably like 7/10. Reports anxiety comes and goes. Reports she had palpitations earlier and received Vistaril and that helped with the palpitations and anxiety is now 4/10. Feels hopeless, helpless, worthless and guilty. Denies active suicidal ideation. Has passive suicidal ideation. Gives a safety promise for here. Denies homicidal ideation. Denies homicidal thoughts towards aunt. Denies auditory and visual hallucinations. Denies paranoid ideation. When asked about magical nunn, the patient reported having an BRIANA skill, that she picks up the phone to call someone, they frequently were in the process of calling her and are on the line without it ringing. There is no apparent thought disorder or delusions. Insight and judgment are limited. The patient is oriented 3. Cognition is grossly intact. Estimate of intellectual functioning is average. Patient reports sleep was low at home but then she had hypersomnia prior to admission. Reports she is sleeping a little better here with increase in trazodone dose. Reports appetite is okay here but she was skipping breakfast and lunch at home. Patient does not weigh herself. Reports energy is very bad right now. Patient feels tired because she feels depressed and bored. Patient reports urinary issues. IMPRESSION: Major depression Reported history of borderline personality disorder. The patient is being monitored on the unit for safety and mood disorder. Dr. Pruitt increased Prozac dose to 60 mg daily. Valium dose was reduced to 5 mg t.i.d. Trazodone dose was increased. I have change patient's oxycodone from 30 mg every 6 hours to 30 mg at 8 AM, 12 noon, 4 PM and 8 PM. We are checking a urinalysis. Additional information needed from collaterals, including Siria Cameron APRN and family. Anticipate once clinically stable, that the patient will be discharged to home and be referred back to [facility]. Anticipate likely discharge before the weekend.
--- NOTE | 2018-01-14 17:41 | SOCIAL WORKER PROG NOTE PSYCH ---
Social Work Progress Note Progress Note Completed [facility] review, SW to check [facility] website for next review date.
[2018-01-14 19:57] VITALS: BP 106/55
[2018-01-15 06:27] VITALS: BP 112/63
[2018-01-15 07:39] VITALS: BP 131/90
--- NOTE | 2018-01-15 08:14 | Cons- Endocrinology ---
General Information and HPI Consulting Request Date of Consult: 01/15/18 Requested By: Dr Lopez Reason for Consult: Abnormal thyroid tests and high hemoglobin A1c Source of Information: patient, old records Exam Limitations: no limitations History of Present Illness: This 32-year-old woman has a known history of multiple medical problems. She apparently is being treated for mixed connective tissue disease. She sees Dr. Stoney Simth. She is on methotrexate but also takes prednisone 10 mg a day. She states this was recently increased by Dr. Smith from 5mg to 10 mg daily but she feels no better on 10 mg that she did on 5 mg. She has chronic pain which she describes as nerve pain all over her body. She denies swelling of her joints. She states she does have bilateral carpal tunnel disease. Unfortunately the patient suffers from morbid obesity. She is gained tremendous weight over the past 10 years. She does have a known history of sleep apnea but is noncompliant on her use of the CPAP machine at home. She has a coagulation disorder and has had 2 pulmonary emboli in the past. She does take Xarelto. The patient notes tremendous fatigue. She occasionally gets chest pain and does have chronic shortness of breath. She has some right upper quadrant pain. Her legs swell. With regard to her thyroid the patient states her mother has been treated for hyperthyroidism with radioactive iodine. She has been told before of occasional mild elevations of her TSH. She denies a lot of hair loss from her scalp. She feels warm rather than cold. She has fatigue as mentioned above. The patient's sugar metabolism has become abnormal. Her fasting sugar is 120 which is between normal and diabetes and her hemoglobin A1c is in the 6.7 range which is in the diabetic range. Allergies/Medications Allergies: Coded Allergies: Penicillins (Severe, HIVES 06/25/17) ibuprofen (Intermediate, HIVES 06/25/17) levofloxacin (Intermediate, "CAUSED MY RUPTURED TENDON" 06/25/17) Sulfa (Sulfonamide Antibiotics) ("MOM TOLD HER SHE WAS ALLERGIC" 06/25/17) metoclopramide (DYSTONIA 06/25/17) Home Med List: Albuterol Sulfate (Proair Hfa) 8.5 GM HFA.AER.AD 2 PUF INH Q4-6 PRN PRN WHEEZE Bupropion HCl (Wellbutrin XL) 150 MG TAB.ER.24H 1 TAB PO DAILY MENTAL HEALTH (Reported) Carbamazepine (Carbamazepine XR) 400 MG TAB.ER.12H 1 TAB PO BID MENTAL HEALTH (Reported) Diazepam 5 MG TABLET 1 TAB PO 4 TIMES/DAY ANXIETY (Reported) Ergocalciferol (Vitamin D2) (Vitamin D2) 50,000 UNIT CAPSULE 1 CAP PO QTUES SUPPLEMENT (Reported) Fluoxetine HCl 20 MG CAPSULE 2 CAP PO DAILY MENTAL HEALTH (Reported) Folic Acid 1 MG TABLET 1 TAB PO BID SUPPLEMENT (Reported) Hydroxychloroquine Sulfate 200 MG TABLET 1 TAB PO BID POLYMYSITIS (Reported) Hydroxyzine Pamoate 25 MG CAPSULE 1 CAP PO 4 TIMES/DAY ANXIETY (Reported) Lidocaine HCl (Lidocaine) (Unknown Strength) OINT...G. (Unknown Dose) TOP PRN PAIN (Reported) Methotrexate/Pf (Rasuvo 25 MG/0.5 Ml Autoinj) 25 MG/0.5 ML AUTO.INJCT 1 INJ INJ QMON POLYMYSITIS (Reported) Metoprolol Succinate 50 MG TAB.ER.24H 1 TAB PO QAM HEART/BP (Reported) Oxycodone HCl (Oxycontin) 60 MG TAB.ER.12H 1 TAB PO BID PAIN (Reported) Oxycodone HCl 30 MG TABLET 1 TAB PO Q4 PAIN (Reported) Prednisone 10 MG TABLET 1 TAB PO DAILY POLYMYOSITIS (Reported) Pregabalin (Lyrica) 100 MG CAPSULE 1 CAP PO TID PAIN (Reported) Rivaroxaban (Xarelto) 20 MG TABLET 1 TAB PO QPM BLOOD THINNER (Reported) with food Trazodone HCl 150 MG TABLET 1 TAB PO QPM MENTAL HEALTH (Reported) Venlafaxine HCl (Venlafaxine HCl ER) 150 MG CAP.ER.24H 1 CAP PO DAILY MENTAL HEALTH (Reported) Review of Systems Review of Systems Constitutional: Reports: malaise. Cardiovascular: Reports: chest pain. Respiratory: Reports: short of breath. GI: Reports: abdominal pain (right upper quadrant). Skin: Reports: dryness. Neurological/Psychological: Reports: depressed. 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 Home Who Do You Live With? child Services at Home: None Smoking Status: Former Smoker ETOH Use: denies use Illicit Drug Use: marijuana Other Social History: Pt lives at home with her daughter. She says her father had COPD, heart disease and lung cancer. Her mother has been diagnosed with dementia and prediabetes. She said she's had gallbladder surgery, carpal tunnel release and tendon release surgeries. Employment History Employment: Unemployed Profession/Employer: [employer] employee Exam & Diagnostic Data Last 24 Hrs of Vital Signs/I&O Vital Signs Date Time Temp Pulse Resp B/P B/P Pulse O2 O2 Flow FiO2 Mean Ox Delivery Rate 01/15 0739 97.3 92 131/90 / 0627 86 112/63 04/1958 97.4 82 106/55 04/02 1606 82 133/69 04/02 1211 85 115/75 04/02 0918 97.6 100 18 136/77 Vital Signs Date Time Temp Pulse Resp B/P B/P Pulse O2 O2 Flow FiO2 Mean Ox Delivery Rate 01/15 0739 97.3 92 131/90 /03 0627 86 112/63 /1958 97.4 82 106/55 04/02 1606 82 133/69 04/02 1211 85 115/75 04/02 0918 97.6 100 18 136/77 Physical Exam General Appearance: alert, awake, comfortable, obese Head: normal appearance Eyes: Bilateral: normal appearance. Neck: thyromegaly Respiratory: normal breath sounds Cardiovascular: regular rate/rhythm Gastrointestinal: normal bowel sounds, soft Extremities: swelling Skin: dry Labs/Izaiah Results: Laboratory Tests 01/14 01/14 2210 0627 Chemistry Hemoglobin A1c (4.2 - 5.8 %) 6.7 H Triglycerides (<150 mg/dL) 145 Cholesterol (<200 MG/DL) 244 H LDL Cholesterol, Calc (65 - 129 mg/dL) 139 H HDL Cholesterol (40 - 60 mg/dL) 76 H Cholesterol/HDL Ratio (0.00 - 4.23 %) 3 Vitamin B12 (239 - 931 pg/mL) 334 Free T4 (0.79 - 2.35 ng/dL) 0.88 Total T3 (0.97 - 1.69 ng/mL) 1.14 TSH &T3 &Free T4 Intrp (0.270 - 4.20 uIU/mL) 7.550 H Immunology Thyroglobulin Antibody (< 61 U/mL) Pending Thyroid Peroxidase Ab (< 61 U/mL) Pending Urines Urine Color (YEL,AMB,STR) YEL Urine Clarity (CLEAR) CLEAR Urine pH (5.0 - 8.0) 6.0 Ur Specific [place] (1.001 - 1.035) <= 1.005 Urine Protein (NEG,<30 MG/DL) NEG Urine Ketones (NEG) NEG Urine Nitrite (NEG) NEG Urine Bilirubin (NEG) NEG Urine Urobilinogen (0.1 - 1.0 EU/dl) 0.2 Ur Leukocyte Esterase (NEG) NEG Ur Microscopic EXAM NOT REQUIRED Urine Hemoglobin (NEG) NEG Urine Glucose (N MG/DL) NEG Assessment/Plan Assessment/Plan This 32-year-old woman with morbid obesity has abnormal sugar metabolism. She is also on prednisone which can contribute to elevation of her blood sugar. Her hemoglobin A1c is 6.7 and her fasting blood work is 120. The patient tells me she feels no better on 10 mg of prednisone than on 5 mg and has had no swelling of her joints or other symptoms even when she was on the 5 mg. The main thing she complains about is chronic pain which does not seem to be helped by prednisone. I would recommend tapering her prednisone down to 5 mg a day and even lower if possible. However she will need to do this with the help of her private banker. At the present time, I do not think we need to place her on any medicine for diabetes. The patient does have sleep apnea and she would benefit from going back on her CPAP machine which can help with her metabolism and weight issues. Also tapering the prednisone would improve her sugar metabolism. The patient's vitamin B12 level was borderline low and I would recommend beginning vitamin B12 1000 mcg daily. With regard to her thyroid there is a family history of thyroid disease. The patient could very well have a autoimmune thyroid disease in the form of Isidoro's thyroiditis. We will check her thyroid antibodies. I would begin Synthroid 100 mcg daily and repeat her free T4 TSH and total T3 and 4-6 weeks. I would also recommend a thyroid ultrasound to check the size and shape of her thyroid which is difficult to palpate because of her body habitus. Consult Acknowledgment - Thank you for your consult request.
[2018-01-15 12:18] VITALS: BP 120/62
[2018-01-15 15:45] VITALS: BP 141/74
--- NOTE | 2018-01-15 15:53 | ULTRASOUND REPORT ---
EXAMINATION: US THYROID CLINICAL INFORMATION: Enlarged thyroid gland. Goiter. Isidoro's thyroiditis. COMPARISON: Thyroid ultrasound dated 07/13/2017. TECHNIQUE: Linear transducer rojas-scale and color Doppler examination with attention to the region of the thyroid. FINDINGS: SIZE: Measurements of the thyroid lobes and nodules are given in sagittal, anteroposterior and transverse dimensions respectively. Right Thyroid Lobe: 3.9 x 1.7 x 1.5 cm, volume 5.2 mL. Previous: 4.3 x 1.2 x 1.5 cm, volume 4 mL. Left Thyroid Lobe: 3.5 x 1.4 x 1.7 cm, volume 4.4 mL. Previous: 4.6 x 1.0 x 1.6 cm, volume 4 mL. Isthmus: 0.3 cm in maximum AP dimension. Previous: 0.4 cm. PARENCHYMA: The gland echotexture is normal. Thyroid vascularity is normal. RIGHT THYROID LOBE: No nodules. ISTHMUS: No nodules. LEFT THYROID LOBE: No nodules. NODES: No lymphadenopathy is seen in the tissue surrounding the thyroid gland. IMPRESSION: Unchanged appearance of the thyroid gland. No interval evolution of thyroid nodule or mass seen.
--- NOTE | 2018-01-15 16:36 | SOCIAL WORKER PROG NOTE PSYCH ---
Social Work Progress Note Progress Note This handbook writer spoke with Vero at [facility] by phone. She shared that patient had been in treatment with [facility] for individual therapy. During this time, [facility] and [facility] requested an in-home compensation administrator, which patient did not follow through with. Vero was informed that the patient would like to pursue individual therapy outside [facility] while also attending IOP. Vero expressed concerns about insurance authorizing IOP and individual therapy simultaneously. This handbook writer met with patient; Care was discussed. She stated that she is agreeable to attending [facility] IOP and may wait until completing IOP before pursuing individual therapy. She described her mood as agitated due to being unable to lie down as there are painters in her room and she therefore does not have access to it. She described her pain at a 6/10. This handbook writer and patient identified activities, such as coloring, that she can do on this unit as a distraction. She also identified the groups as helpful. Patient expressed interest in getting a home health aide to assist with grocery shopping, showering, dressing, cooking and house work. This handbook writer inquire about patient's involvement with case management at [facility], to which she stated that she has not been utilizing. Patient denied SI/HI/AH/VH. This handbook writer joined the meeting between Dr. Lopez and the patient (please see Dr. Lopez's note). Discharge was discussed with an anticipated date of 01/17. Patient became tearful upon discussing discharge, expressing concern that she needs to learn more coping skills. This handbook writer and patient discussed utilizing groups on this unit to build on her current coping skills. This handbook writer spoke with Roseanna Ovalle ([phone]) for a concurrent review. Additional days were authorized with next review due on 01/17/18. Roseanna suggested PHP and stated that she would look into PHP's close to patient's home. Roseanna suggested that this handbook writer speak with [facility] about the possibility of 4-5 days of IOP.
--- NOTE | 2018-01-15 17:07 | CP SOUTH PROGRESS NOTE PSYCH ---
Psych (Inpt) Progress Note Progress Note Include the following elements, when applicable: Involvement in the active treatment of the patient with behavioral observations of the patient and the patient's response to the treatment. Review of the ongoing treatment process in the context of the treatment plan. Indication of how multi-disciplinary staff members are carrying out the treatment plan. Plans for future interventions and recommendations for revision of the treatment plan. Liaison with other physicians/providers. Progress Note: Case and treatment plan discussed in team meeting. Staff reports that the patient is denying suicidal ideation. Appearing sedated. Endocrine consult by Dr. Jean-Baptiste appreciated. Patient is now on Vitamin B12 and will be placed on Synthroid 100 mcg daily. Patient seen at 1:52 PM with Joycelyn Steele LCSW. Patient feels a little bit better. Denies having felt like wanting to since admission here. Still has panic, shortness of breath and had some brief chest pain. Reports ongoing shortness of breath but no chest pain now. She does not appear dyspneic. She does have a history of pulmonary embolus but no history of cardiac disease. Reports mood as "I don't know, frustrated." Reports she wants to be in her room , lying down, but her room is being painted. Affect ranges from euthymic to tearful. Rates sad mood probably 5/10 and anxiety probably like 6/10. Denies feeling hopeless, helpless or worthless. Reports mild guilt about daughter being bounced around. Denies suicidal and homicidal ideation. Denies auditory and visual hallucinations. Reports her aunt is out to harm her. Reports she slept pretty much okay. Appetite has been okay since coming here. States she has no energy. Tolerating medications. We discussed discharge for . States this scares her. She reports she is not sure how she will cope with daughter's situation and is tearful about it. Reports her goal for today is to learn coping skills. IMPRESSION: Slow progress. Continue present treatment plan. Discharge is anticipated for with return to treatment at [facility]. Case discussed with Siria Cameron APRN.
[2018-01-15 20:09] VITALS: BP 136/64
[2018-01-16 08:48] VITALS: BP 138/91
[2018-01-16 12:27] VITALS: BP 134/70
--- NOTE | 2018-01-16 13:12 | PN- Att Addend ---
Attending Addendum Attending Brief Note S: Was initially called by nursing to evaluate patient for dyspnea and wheezing. The patient denied any pulmonary symptoms, however expressed concern regarding dental issues. She had broken a few teeth and had pain in left upper canine region extending to nasal area, concern regarding infection. No fever, chills, etc. O: VS: Vital Signs Date Time Temp Pulse Resp B/P B/P Pulse O2 O2 Flow FiO2 Mean Ox Delivery Rate 01/16 1629 81 137/84 01/16 1227 86 134/70 01/16 0848 97.4 92 138/91 01/15 2009 97.6 80 136/64 Current Medications Sig/Paul Start time Last Medication Dose Route Stop Time Status Admin Albuterol Sulfate 2 PUF Q6P PRN 01/14 1315 AC INH Benzocaine 1 ARIA Q4P PRN 01/15 1515 AC 01/16 TOP 1432 Carbamazepine 400 MG BID 01/11 2359 AC 01/16 PO 0956 Clindamycin 150 MG Q8 01/16 1400 AC 01/16 PO 01/20 2200 1431 Cyanocobalamin 1,000 MCG DAILY 01/15 1000 AC 01/16 PO 0955 Diazepam 5 MG 0700,1200,1900 01/13 0700 AC 01/16 PO 1259 Ergocalciferol 50,000 IU Q168 01/15 1000 AC 01/15 PO 0944 Fluoxetine HCl 60 MG DAILY AC 01/13 0700 AC 01/16 PO 0704 Folic Acid 1 MG BID 01/14 1211 AC 01/16 PO 0955 Hydroxychloroquine 200 MG BID 01/11 0101 AC 01/16 Sulfate PO 0956 Hydroxyzine HCl 25 MG Q6 01/11 0102 AC 01/16 PO 1258 Levothyroxine Sodium 0.1 MG DAILY AC 01/16 0700 AC 01/16 PO 0703 Lidocaine 1 ARIA BID PRN 01/12 1330 AC 01/12 TOP 1621 Lidocaine/Diphenhydr/ 10 ML Q2 HRS NEEDED PRN 01/16 1315 AC Alum/Mg/Simeth PO Methotrexate 25 MG QMON@1600 01/14 1600 AC 01/14 SC 1720 Metoprolol Succinate 50 MG QAM 01/11 1000 AC 01/16 PO 0955 Oxycodone HCl 30 MG 0800,1200,1600,2000 01/14 1600 AC 01/16 PO 1301 Oxycodone HCl 60 MG Q12H 01/12 1900 AC 01/16 PO 0704 Prednisone 10 MG DAILY 01/11 1000 AC 01/16 PO 0955 Pregabalin 100 MG TID 01/12 1621 AC 01/16 PO 0956 Rivaroxaban 20 MG 1700 01/12 1700 AC 01/15 PO 1604 Trazodone HCl 200 MG AT BEDTIME 01/12 2200 AC 01/15 PO 2205 Venlafaxine HCl 150 MG 0800 01/12 0800 AC 01/16 PO 0954 Physical Exam: HEENT: carlos- + 3 teeth chipped to base, left upper canine area with mild erythema of gum, no abscess palpable, + tender. Neck: no adenopathy Chest: clear to A&P (specifically, no wheeze) Cor: RRR nl S1, S2 w/o murm Abd: BS+, NT Ext: tr edema Neuro: non-focal, alert & oriented Impression/Plan: #Dental Pain- ? early infection. The patient has broken several teeth and has pain and erythema of gum (no abscess palpable) in left upper canine area. Plan: Empiric Rx with lidocaine (Magic Mouthwash) and course of Clindamycin (PCN allergic). #Dyspnea & Wheeze- as per nursing, however patient denies issues and lungs are currently clear. Does have prn albuterol MDI ordered. 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 Plan: Continue meds. #Anxiety/Depression- doing better. Plan: As per psychiatry. 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 Clinical no PE. Plan: Continue Xarelto. Plan: If further wheeze will use MDI as ordered.
--- NOTE | 2018-01-16 15:19 | SOCIAL WORKER PROG NOTE PSYCH ---
Social Work Progress Note Progress Note 11:10am This development writer spoke with patient's sister, Sylvia. She expressed concerns about the patient's state of her apartment. She also expressed concerns about the patient 's safety (regarding SI) should she discharge at this time and believes that she is in need for inpatient treatment. She was informed that an anticipated discharge date has been identified as , 01/17/18. Sylvia mentioned the DCF meeting scheduled for tomorrow at 10am. She stated that it will be regarding the plan for her daughter who will be removed from the patient's home. This development writer attempted to schedule a family meeting with Sylvia, however, Sylvia stated that she is not available today or tomorrow even by phone. This development writer spoke with Shoshana Case at [facility] ([phone]) by phone. She confirmed that the phone meeting is scheduled for tomorrow at 10am. She stated that the father of the patient's daughter, the patient's sister and DCF will be attending this meeting. She stated that this development writer may attend if the patient would prefer, however, this development writer is not required to attend. Shoshana will contact this development writer with a phone number to call in on. This development writer met with patient. She complained of physical pain today. She denied SI/HI/AH/VH. She reported feeling depressed today. She was informed of the conversation with the patient's sister earlier today. Patient stated that she does not feel the need to attend any type of residential treatment. Patient denied substance use. She refused crisis and respite referral and would like to return home. Patient stated that her home is in good shape and "I don't know what my sister is talking about."
--- NOTE | 2018-01-16 16:27 | CP SOUTH PROGRESS NOTE PSYCH ---
Psych (Inpt) Progress Note Progress Note Include the following elements, when applicable: Involvement in the active treatment of the patient with behavioral observations of the patient and the patient's response to the treatment. Review of the ongoing treatment process in the context of the treatment plan. Indication of how multi-disciplinary staff members are carrying out the treatment plan. Plans for future interventions and recommendations for revision of the treatment plan. Liaison with other physicians/providers. Progress Note: Case and treatment plan discussed in team meeting. Staff reports that the patient is denying suicidal ideation. She reportedly discussed in group that she made a threatening statement towards nurses during a previous hospitalization elsewhere. Staff reports she is not bathing. Patient seen at 3:11 PM. States she does not feel well. Reports she is upset and she does not feel like doing much. Patient reports that DCF told her over the phone that she will not be getting her daughter back right now because they feel that the patient is not mentally stable enough. Affect is irritable. Mood is not really happy. Rates sad mood probably like a 5-6/10. Rates anxiety probably 7/10. Feels hopeless and helpless a little bit. Denies feeling worthless. Denies feeling guilty at the moment. Denies suicidal and homicidal ideation. Denies auditory and visual hallucinations. Feels paranoid of DCF, her sister, and possibly her daughter's father. Describes sleep as having been up and down all night. Appetite is okay. Energy is very low. Tolerating medications well, without complaint. She reports toothaches and I have ordered prn Orajel. IMPRESSION: Slow progress. Continue present treatment plan. Anticipate discharge tomorrow to home with referral to [facility].
[2018-01-16 16:29] VITALS: BP 137/84
[2018-01-16 19:47] VITALS: BP 121/57
[2018-01-17 07:50] VITALS: BP 137/97
[2018-01-17 12:24] VITALS: BP 131/71
[2018-01-17] MEDS ORDERED: CLINDAMYCIN HC150 M1 PO (13:26)
[2018-01-17] MEDS ORDERED: TRAZODONE HCL100 M1 PO (13:26)
[2018-01-17] MEDS ORDERED: FLUOXETINE HCL20 M2 PO (13:26)
[2018-01-17] MEDS ORDERED: ORABASE11.9 GM TP (13:33)
[2018-01-17] MEDS ORDERED: SYNTHROID100 MCG PO (13:33)
[2018-01-17] MEDS ORDERED: VITAMIN B-121000 MC3 PO (13:35)
--- NOTE | 2018-01-17 13:54 | Patient Discharge Instructions ---
Psych Discharge Inst General Discharge Information Reason for Admission: Passive suicidal ideation in the context of DCF's removal of daughter and mother 's placement at aunt's home in [place]. 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 Fibromyalgia Exercise-induced asthma Hx pneumonia Hx tubular adenoma Chronic back pain Degenerative joint dz Osteoarthritis RSD Hx bulding disc Hx tendon transfer Hx bilateral carpal tunnl Hx left wrist fracture Vitamin D deficiency Summary Tests/Major Procedures Lab ALT 18 U/L 01/10/182006 AST 23 U/L 01/10/182006 Alkaline Phosphatase 143 U/L H 01/10/182006 BUN 7 mg/dL 01/10/18 2007 Calcium 9.2 mg/dL 01/10/18 2007 Carbon Dioxide 31 mmol/L H 01/10/182006 Chloride 96 mmol/L L 01/10/182006 Cholesterol 244 MG/DL H 01/14/18626 Cholesterol/HDL Ratio 3 % 01/14/18626 Creatinine 0.6 mg/dL 01/10/182006 Estimated GFR > 60 ml/min 01/10/182006 Free T4 0.88 ng/dL 01/14/1827 Glucose 120 mg/dL H 01/10/182006 HDL Cholesterol 76 mg/dL H 01/14/1827 Hemoglobin A1c 6.7 % H 01/14/18626 LDL Cholesterol, Calc 139 mg/dL H 01/14/18626 Potassium 3.9 mmol/L 01/10/182006 Sodium 137 mmol/L 01/10/182006 TSH &T3 &Free T4 Intrp 7.550 uIU/mL H 01/14/18626 Total T3 1.14 ng/mL 01/14/1827 Triglycerides 145 mg/dL 01/14/1827 Vitamin B12 334 pg/mL 01/14/1827 Hct 36.4 % L 01/10/182006 Hgb 12.2 G/DL 01/10/182006 Plt Count 283 /CUMM 01/10/18 2007 RBC 4.11 /CUMM L 01/10/182006 WBC 6.7 /CUMM 01/10/18 2007 Thyroglobulin Antibody 21 U/mL 01/14/18626 Thyroid Peroxidase Ab < 28 U/mL 01/14/18626 Serum Alcohol < 10.0 MG/DL 01/10/182006 U Benzodiazepines Scrn > 800 NG/ML H 01/10/182140 Urine Opiates Screen 831.00 NG/ML 01/10/182140 Urine Test NEGATIVE 01/10/182140 SERVICE DATE: 01/15/18- EXAM TYPE: US - US-SOFT TISSUES OF HEAD & NECK EXAMINATION: US THYROID CLINICAL INFORMATION: Enlarged thyroid gland. Goiter. Isidoro's thyroiditis. COMPARISON: Thyroid ultrasound dated 07/13/2017. TECHNIQUE: Linear transducer rojas-scale and color Doppler examination with attention to the region of the thyroid. FINDINGS: SIZE: Measurements of the thyroid lobes and nodules are given in sagittal, anteroposterior and transverse dimensions respectively. Right Thyroid Lobe: 3.9 x 1.7 x 1.5 cm, volume 5.2 mL. Previous: 4.3 x 1.2 x 1.5 cm, volume 4 mL. Left Thyroid Lobe: 3.5 x 1.4 x 1.7 cm, volume 4.4 mL. Previous: 4.6 x 1.0 x 1.6 cm, volume 4 mL. Isthmus: 0.3 cm in maximum AP dimension. Previous: 0.4 cm. PARENCHYMA: The gland echotexture is normal. Thyroid vascularity is normal. RIGHT THYROID LOBE: No nodules. ISTHMUS: No nodules. LEFT THYROID LOBE: No nodules. NODES: No lymphadenopathy is seen in the tissue surrounding the thyroid gland. IMPRESSION: Unchanged appearance of the thyroid gland. No interval evolution of thyroid nodule or mass seen. SERVICE DATE: 01/12/18- EXAM TYPE: RAD - XRY-WRIST COMPLETE-LEFT EXAMINATION: XR WRIST, LEFT CLINICAL INFORMATION: Pain and limited range of motion. History of worsening wrist pain. Unclear trauma. COMPARISON: Left hand films dated 06/20/2016. TECHNIQUE: 4 views of the left wrist. FINDINGS: No acute fracture or dislocation. Minimal spurring at the first carpometacarpal joint. Slight widening of the scapholunate interval is seen, suspicious for scapholunate ligament tear. Approximately 2 mm of negative ulnar variance are again noted. No soft tissue calcifications or radiopaque foreign bodies. IMPRESSION: 1. No acute fracture or dislocation. 2. Minimal degenerative changes at the first carpometacarpal joint. 3. Suspicion of scapholunate ligament tear. 4. 2 mm negative ulnar variance. No evidence of Kienbock's disease. PLEASE HAVE A TEGRETOL LEVEL AND EKG CHECKED Studies Pending at DC: None. Patient Instructions Contact Information Your Psychiatrist on [facility] was Alec Lopez MD * If you are experiencing an emergency related to this hospitalization, please call [phone] to contact the treating psychiatrist or the psychiatrist-on- call. * To Request a copy of your medical records, please contact the Medical Records Department at [phone]. * To request results of studies pending at the time of discharge, please call [phone]. * Continue your Medications until directed to stop by your Healthcare provider. General Medication Information Please continue to take your new medications and your continued home medications , unless otherwise indicated on your discharge medication list, or unless directed by your MD or R AND D LAB TECHNICIAN to stop them. Special Instructions Diet Regular Activity Normal Other Inst/Recommendations See PCP about labs, see dentist, see rhematologist, see endo (Dr. Jean-Baptiste). - Tobacco Use Treatment Offered Post DC Medications Offered: Not Applicable Post DC Tobacco Treatment Plan: Not Applicable - EtOH/Drug Use D/O Treatment Offered Post DC Medications Offered: NA-No EtOH/Drug Use D/O Post DC EtOH/SubAbuse TX Plan: NA-No EtOH/Drug Use D/O Metabolic Screening () Not Applicable, patient not on a neuroleptic. OR () Patient on a neuroleptic(s) . Enter below results for Hemoglobin A1C, and lipid panel if obtained during the last 365 days. BMI: 51.000 Blood Pressure: 131/71 Laboratory Results From [facility] (If applicable): [x] Lab Cholesterol 244 MG/DL H 01/14/18626 Cholesterol/HDL Ratio 3 % 01/14/18626 HDL Cholesterol 76 mg/dL H 01/14/18626 Hemoglobin A1c 6.7 % H 01/14/18626 LDL Cholesterol, Calc 139 mg/dL H 01/14/18626 Triglycerides 145 mg/dL 01/14/18626 Advance Directives Does the Patient have Medical Advance Directives No/Refused further info Does Pt have Psychiatric Advance Directives? No/Refused further info Does Patient have a Designated Surrogate Decision Maker: No Information About Psychiatric Advance Directives Provided? Refused Discharge Plan Post Hospital Treatment Plan: Returning to home. Patient will try to have a friend stay with her. Referral to [facility] IOP. * Please have Tegretol level and EKG checked. * Please follow up with PCP about abnormal labs. * Please see your dentist. * Please follow up with your customs import specialist including asking about reduction in prednisone to 5 mg/day or lower if possible. * Please look into getting back on CPAP. * Please see interior design principal for follow up of elevated hemoglobin A1c, for repeat free T4, TSH and total T3 in 4-6 weeks.
--- NOTE | 2018-01-17 14:41 | IP INCIDENTAL NOTE PSYCH ---
Incidental Note Notation: I was informed that the patient's sister, Sylvia, requested a call from me. I called Sylvia and discussed patient's case with her. Sylvia expressed concern about the patient's safety. I told Sylvia that we have monitored the patient for several days and that she is denying SI. I also informed Sylvia that should the patient have difficulty, we are here for her, and she may come back to our ER.
--- NOTE | 2018-01-17 15:06 | CP SOUTH PROGRESS NOTE PSYCH ---
Psych (Inpt) Progress Note Progress Note Include the following elements, when applicable: Involvement in the active treatment of the patient with behavioral observations of the patient and the patient's response to the treatment. Review of the ongoing treatment process in the context of the treatment plan. Indication of how multi-disciplinary staff members are carrying out the treatment plan. Plans for future interventions and recommendations for revision of the treatment plan. Liaison with other physicians/providers. Progress Note: Case and treatment plan discussed in team meeting. Staff reports that the patient is denying suicidal ideation. Described as isolative and withdrawn. Spent all evening in bed. Displaying a flat affect. Was incontinent of urine during the night. Patient seen at 12:53 PM. She is ambulating without use of a walker. She had DCF phone call this morning and is states she is not doing well. States they took her daughter away. States child's father will be getting custody and she is never going to get it back. Reports daughter's SSI will probably go to the daughter's father and patient claims she will then not be able to pay rent and probably will have to pay child support. States she cannot afford child support. She states there is no issue about parental rights. Affect is tearful. Patient feels that sister is spreading all sorts of lies "and they are just eating them up." Patient is willing to attend our IOP. States she does not believe the anxiety medication is doing much for her. Rates sad mood 10/10 and anxiety probably 10/10. Denies suicidal ideation. Denies homicidal ideation. She had thoughts of punching her sister but denies any plan or intent to do so. She understands that if she punches her sister, it will probably hurt her child custody case and the patient will likely be arrested. Denies auditory and visual hallucinations. Feels paranoid of everybody that was on the phone today. IMPRESSION: Patient is no longer suicidal. Okay for discharge today to home with referral to [facility]'s IOP to start tomorrow.
[2018-01-17 15:58] VITALS: BP 133/67
--- NOTE | 2018-01-17 17:58 | SOCIAL WORKER PROG NOTE PSYCH ---
Social Work Progress Note Progress Note This mortgage underwriter spoke with Afsaneh at [facility] ([phone]) for a concurrent review as there were issues with their website. Afsaneh authorized an additional day and documented a discharge date of 01/18/18. No additional review needed; request to inform [facility] should the patient not discharge tomorrow (01/18/18).
--- NOTE | 2018-01-17 18:10 | SOCIAL WORKER PROG NOTE PSYCH ---
Social Work Progress Note Progress Note This senior grant writer provided support to the patient during the phone meeting with DCF ( Juan). Patient's sister and the father of the patient's daughter also attended the meeting. Patient was informed that her daughter would not be returned to her at this time and it was determined that she would reside with her father.
[2018-01-17 20:33] VITALS: BP 145/85
[2018-01-18 07:07] VITALS: BP 98/62
[2018-01-18 07:11] VITALS: BP 104/56
[2018-01-18 08:10] VITALS: BP 144/75
--- NOTE | 2018-01-18 08:21 | PN- Endocrinology ---
Assessment/Plan Endoscopy Assessment: The patient states she is not having a good day today. She was started on thyroid hormone in the form of levothyroxine 100 mcg daily a few days ago. She is still on prednisone 10 mg daily and once again states that she does not feel any better on 10 mg versus 5 mg of prednisone. Plan: Suggest continue levo thyroxine 100 mcg once a day. Repeat free T4 and TSH beginning of next week. We can taper the prednisone to 5 mg once a day. The patient is in agreement with this. Subjective Subjective: Not having a good day Review of Systems Constitutional: Denies: chills, fever. Cardiovascular: Denies: chest pain. Respiratory: Denies: cough, short of breath. Gastrointestinal: Denies: nausea, vomiting. Objective Last 24 Hrs of Vital Signs/I&O Vital Signs Date Time Temp Pulse Resp B/P B/P Pulse O2 O2 Flow FiO2 Mean Ox Delivery Rate / 0810 88 144/75 04/06 0711 91 104/56 04/05 2033 97.8 94 145/85 04/05 1558 89 133/67 04/05 1224 91 131/71 Vital Signs Date Time Temp Pulse Resp B/P B/P Pulse O2 O2 Flow FiO2 Mean Ox Delivery Rate / 0810 88 144/75 04/06 0711 91 104/56 04/05 2033 97.8 94 145/85 04/05 1558 89 133/67 04/05 1224 91 131/71 Physical Exam General Appearance: alert, awake, obese Head: normal appearance Neck: normal inspection Respiratory: normal breath sounds Cardiovascular: regular rate/rhythm Current Medications: Current Medications Sig/Paul Start time Last Medication Dose Route Stop Time Status Admin Albuterol Sulfate 2 PUF Q6P PRN 01/14 1315 AC INH Benzocaine 1 ARIA Q4P PRN 01/15 1515 AC 01/16 TOP 2136 Carbamazepine 400 MG BID 01/11 2359 AC 01/17 PO 2307 Clindamycin 150 MG Q8 01/16 1400 AC 01/18 PO 01/20 2200 0712 Cyanocobalamin 1,000 MCG DAILY 01/15 1000 AC 01/17 PO 0757 Diazepam 5 MG 0700,1200,1900 01/13 0700 AC 01/18 PO 0811 Ergocalciferol 50,000 IU Q168 01/15 1000 AC 04/03 PO 0944 Fluoxetine HCl 60 MG DAILY AC 01/13 0700 AC 01/18 PO 0726 Folic Acid 1 MG BID 01/14 1211 AC 01/17 PO 2307 Hydroxychloroquine 200 MG BID 01/11 0101 AC 01/17 Sulfate PO 2307 Hydroxyzine HCl 25 MG Q6 01/11 0102 AC 01/18 PO 0726 Levothyroxine Sodium 0.1 MG DAILY AC 01/16 0700 AC 01/18 PO 0712 Lidocaine 1 ARIA BID PRN 01/12 1330 01/12 TOP 1621 Lidocaine/Diphenhydr/ 10 ML Q2 HRS NEEDED PRN 01/16 1315 AC 01/16 Alum/Mg/Simeth PO 1859 Methotrexate 25 MG QMON@1600 01/14 1600 AC 01/14 SC 1720 Metoprolol Succinate 50 MG QAM 01/11 1000 AC 01/17 PO 0757 Oxycodone HCl 30 MG 0800,1200,1600,2000 01/14 1600 AC 01/17 PO 2034 Oxycodone HCl 60 MG Q12H 01/12 1900 AC 01/18 PO 0811 Prednisone 10 MG DAILY 01/11 1000 AC 01/17 PO 0757 Pregabalin 100 MG TID 01/12 1621 AC 01/17 PO 2307 Rivaroxaban 20 MG 1700 01/12 1700 AC 01/17 PO 1608 Trazodone HCl 200 MG AT BEDTIME 01/12 2200 AC 01/17 PO 2306 Venlafaxine HCl 150 MG 0800 01/12 0800 AC 01/17 PO 0757
[2018-01-18 09:30] VITALS: BP 144/75
--- NOTE | 2018-01-18 10:51 | IP INCIDENTAL NOTE PSYCH ---
Incidental Note Notation: Since patient did not discharge yesterday, I contacted: [id number] [facility] [place], [place] [address] and requested dispense number for clindamycin be reduced from #11 to #9, as she was administered additional clindamycin since yesterday morning.
--- NOTE | 2018-01-18 14:41 | CP SOUTH PROGRESS NOTE PSYCH ---
Psych (Inpt) Progress Note Progress Note Include the following elements, when applicable: Involvement in the active treatment of the patient with behavioral observations of the patient and the patient's response to the treatment. Review of the ongoing treatment process in the context of the treatment plan. Indication of how multi-disciplinary staff members are carrying out the treatment plan. Plans for future interventions and recommendations for revision of the treatment plan. Liaison with other physicians/providers. Progress Note: Case and treatment plan discussed in team meeting. Staff reports that the patient denied suicidal ideation. Morning medications were initially held for low blood pressure which apparently improved. IOP intake was scheduled for 11: 30 AM. Patient seen at 10:15 AM with Joycelyn Steele LCSW. Patient seems malodorous. States she is "kind of numb, I guess, I don't know if I am depressed, definitely numb." Reports she slept from 6 PM to 7 AM but her sleep was interrupted for medications. Affect is irritable. Rates sad mood probably 8/10 and anxiety probably like 4/10. Denies feeling hopeless. Feels helpless. Feels worthless a little bit. Feels guilty. Denies suicidal and homicidal ideation. Denies auditory and visual hallucinations. When asked about paranoia, she stated "probably, some people, the same people as before." Reports she ate okay this morning. Energy: states "I could go back to bed right now." IMPRESSION: Condition improved. Okay for discharge today to IOP intake then to return home.
--- NOTE | 2018-01-18 14:52 | DISCHARGE SUMMARY REPORT-PSYCH ---
Visit Information Visit Dates/Diagnosis' Admission Date: 01/11/18 Discharge Date: 01/18/18 Reason for Admission: Passive suicidal ideation in the context of DCF's removal of daughter and mother's placement at aunt's home in [place]. 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 Fibromyalgia Exercise-induced asthma Hx pneumonia Hx tubular adenoma Chronic back pain Degenerative joint dz Osteoarthritis RSD Hx bulding disc Hx tendon transfer Hx bilateral carpal tunnl Hx left wrist fracture Vitamin D deficiency Hospital Course Significant Lab Findings: Lab ALT 18 U/L 01/10/182006 AST 23 U/L 01/10/182006 Alkaline Phosphatase 143 U/L H 01/10/182006 BUN 7 mg/dL 01/10/182006 Calcium 9.2 mg/dL 01/10/182006 Carbon Dioxide 31 mmol/L H 01/10/182006 Chloride 96 mmol/L L 01/10/182006 Cholesterol 244 MG/DL H 01/14/1827 Cholesterol/HDL Ratio 3 % 01/14/1827 Creatinine 0.6 mg/dL 01/10/182006 Estimated GFR > 60 ml/min 01/10/182006 Free T4 0.88 ng/dL 01/14/1827 Glucose 120 mg/dL H 01/10/182006 HDL Cholesterol 76 mg/dL H 01/14/1827 Hemoglobin A1c 6.7 % H 01/14/1827 LDL Cholesterol, Calc 139 mg/dL H 01/14/1827 Potassium 3.9 mmol/L 01/10/182006 Sodium 137 mmol/L 01/10/182006 TSH &T3 &Free T4 Intrp 7.550 uIU/mL H 01/14/18626 Total T3 1.14 ng/mL 01/14/1827 Triglycerides 145 mg/dL 01/14/1827 Vitamin B12 334 pg/mL 01/14/1827 Hct 36.4 % L 01/10/182006 Hgb 12.2 G/DL 01/10/182006 Plt Count 283 /CUMM 01/10/18 2007 RBC 4.11 /CUMM L 01/10/182006 WBC 6.7 /CUMM 01/10/18 2007 Thyroglobulin Antibody 21 U/mL 01/14/18626 Thyroid Peroxidase Ab < 28 U/mL 01/14/18626 Serum Alcohol < 10.0 MG/DL 01/10/182006 U Benzodiazepines Scrn > 800 NG/ML H 01/10/182140 Urine Opiates Screen 831.00 NG/ML 01/10/182140 Urine Test NEGATIVE 01/10/182140 SERVICE DATE: 01/15/18- EXAM TYPE: US - US-SOFT TISSUES OF HEAD & NECK EXAMINATION: US THYROID CLINICAL INFORMATION: Enlarged thyroid gland. Goiter. Isidoro's thyroiditis. COMPARISON: Thyroid ultrasound dated 07/13/2017. TECHNIQUE: Linear transducer rojas-scale and color Doppler examination with attention to the region of the thyroid. FINDINGS: SIZE: Measurements of the thyroid lobes and nodules are given in sagittal, anteroposterior and transverse dimensions respectively. Right Thyroid Lobe: 3.9 x 1.7 x 1.5 cm, volume 5.2 mL. Previous: 4.3 x 1.2 x 1.5 cm, volume 4 mL. Left Thyroid Lobe: 3.5 x 1.4 x 1.7 cm, volume 4.4 mL. Previous: 4.6 x 1.0 x 1.6 cm, volume 4 mL. Isthmus: 0.3 cm in maximum AP dimension. Previous: 0.4 cm. PARENCHYMA: The gland echotexture is normal. Thyroid vascularity is normal. RIGHT THYROID LOBE: No nodules. ISTHMUS: No nodules. LEFT THYROID LOBE: No nodules. NODES: No lymphadenopathy is seen in the tissue surrounding the thyroid gland. IMPRESSION: Unchanged appearance of the thyroid gland. No interval evolution of thyroid nodule or mass seen. SERVICE DATE: 01/12/18- EXAM TYPE: RAD - XRY-WRIST COMPLETE-LEFT EXAMINATION: XR WRIST, LEFT CLINICAL INFORMATION: Pain and limited range of motion. History of worsening wrist pain. Unclear trauma. COMPARISON: Left hand films dated 06/20/2016. TECHNIQUE: 4 views of the left wrist. FINDINGS: No acute fracture or dislocation. Minimal spurring at the first carpometacarpal joint. Slight widening of the scapholunate interval is seen, suspicious for scapholunate ligament tear. Approximately 2 mm of negative ulnar variance are again noted. No soft tissue calcifications or radiopaque foreign bodies. IMPRESSION: 1. No acute fracture or dislocation. 2. Minimal degenerative changes at the first carpometacarpal joint. 3. Suspicion of scapholunate ligament tear. 4. 2 mm negative ulnar variance. No evidence of Kienbock's disease. PLEASE HAVE A TEGRETOL LEVEL AND EKG CHECKED Course Complications: The patient was treated with clindamycin and magic mouthwash for tooth pain. Consultations: The patient was seen by Dr. Janis Perez for admission H&P, who noted: "Assessment/Plan Very complex 52-year-old female with multiple medical problems including mixed connective tissue disease/polymyositis on chronic prednisone therapy with Plaquinal and questionable weekly methotrexate. In addition history of VTE, patient can't really tell me when was her last clot but she takes Xarelto chronically. Morbid obesity, tachycardia for which she is on metoprolol and chronic opiate dependence. She is here with acute depressive symptoms and suicidality. Treatment as per psych for now. Patient has multiple complaints and will need close outpatient follow-up both with her PCP and her supportive employment case manager on discharge. For now would continue her steroids, plaquinal and her methotrexate. Noted methotrexate is given weekly. Get collateral info from patient's primary care physician Dr. Simental patient's supportive employment case manager Dr. Smith. She is afebrile and doesn't have leukocytosis. She will need dental follow-up on discharge." The patient was seen by Dr. Jean-Baptiste of endocrinology on 01/15/18. He noted: "Assessment/Plan This 32-year-old woman with morbid obesity has abnormal sugar metabolism. She is also on prednisone which can contribute to elevation of her blood sugar. Her hemoglobin A1c is 6.7 and her fasting blood work is 120. The patient tells me she feels no better on 10 mg of prednisone than on 5 mg and has had no swelling of her joints or other symptoms even when she was on the 5 mg. The main thing she complains about is chronic pain which does not seem to be helped by prednisone. I would recommend tapering her prednisone down to 5 mg a day and even lower if possible. However she will need to do this with the help of her supportive employment case manager. At the present time, I do not think we need to place her on any medicine for diabetes. The patient does have sleep apnea and she would benefit from going back on her CPAP machine which can help with her metabolism and weight issues. Also tapering the prednisone would improve her sugar metabolism. The patient's vitamin B12 level was borderline low and I would recommend beginning vitamin B12 1000 mcg daily. With regard to her thyroid there is a family history of thyroid disease. The patient could very well have a autoimmune thyroid disease in the form of Isidoro's thyroiditis. We will check her thyroid antibodies. I would begin Synthroid 100 mcg daily and repeat her free T4 TSH and total T3 and 4-6 weeks. I would also recommend a thyroid ultrasound to check the size and shape of her thyroid which is difficult to palpate because of her body habitus." Dr. Jean-Baptiste saw the patient again on 01/17/18 and noted: "Suggest continue levo thyroxine 100 mcg once a day. Repeat free T4 and TSH beginning of next week. We can taper the prednisone to 5 mg once a day. The patient is in agreement with this." The patient was seen by Dr. Richardson, hospitalist, on 01/16/18. He noted: "#Dental Pain- ? early infection. The patient has broken several teeth and has pain and erythema of gum (no abscess palpable) in left upper canine area. Plan: Empiric Rx with lidocaine (Magic Mouthwash) and course of Clindamycin (PCN allergic). #Dyspnea & Wheeze- as per nursing, however patient denies issues and lungs are currently clear. Does have prn albuterol MDI ordered. #Connective Tissue Disorder- on MTX and meds as per her Thermometer Tester. Plan: Continue meds. #Anxiety/Depression- doing better. Plan: As per psychiatry. 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 Clinical no PE. Plan: Continue Xarelto. Plan: If further wheeze will use MDI as ordered." Allergies: Coded Allergies: Penicillins (Severe, HIVES 06/25/17) ibuprofen (Intermediate, HIVES 06/25/17) levofloxacin (Intermediate, "CAUSED MY RUPTURED TENDON" 06/25/17) Sulfa (Sulfonamide Antibiotics) ("MOM TOLD HER SHE WAS ALLERGIC" 06/25/17) metoclopramide (DYSTONIA 06/25/17) Hospital Course/TX Response: The patient was monitored on the unit for safety and mood disorder. She participated in multi-modal treatments on the unit. Prozac dose was increased to 60 mg daily. Trazodone dose was increased to 200 mg qhs. Synthroid and Vitamin B12 were added. Prednisone dose was decreased to [address] Jean-Baptiste. The patient was treated with clindamycin and magic mouthwash for dental issue. Patient received word from [facility] that daughter's custody, at least temporarily, was being given to the daughter's father. This was difficult news for the patient. Mood and affect have improved somewhat. Suicidal ideation has remitted. Progress note from date of discharge, 01/18/18: Case and treatment plan discussed in team meeting. Staff reports that the patient denied suicidal ideation. Morning medications were initially held for low blood pressure which apparently improved. IOP intake was scheduled for 11: 30 AM. Patient seen at 10:15 AM with Joycelyn Steele LCSW. Patient seems malodorous. States she is "kind of numb, I guess, I don't know if I am depressed, definitely numb." Reports she slept from 6 PM to 7 AM but her sleep was interrupted for medications. Affect is irritable. Rates sad mood probably 8/10 and anxiety probably like 4/10. Denies feeling hopeless. Feels helpless. Feels worthless a little bit. Feels guilty. Denies suicidal and homicidal ideation. Denies auditory and visual hallucinations. When asked about paranoia, she stated "probably, some people, the same people as before." Reports she ate okay this morning. Energy: states "I could go back to bed right now." IMPRESSION: Condition improved. Okay for discharge today to IOP intake then to return home. Discharge HBIPS - Tobacco Use Treatment Offered Post DC Medications Offered: Not Applicable Post DC Tobacco Treatment Plan: Not Applicable - EtOH/Drug Use D/O Treatment Offered Post DC Medications Offered: NA-No EtOH/Drug Use D/O Post DC EtOH/SubAbuse TX Plan: NA-No EtOH/Drug Use D/O Metabolic Screening - Screen if on a Neuroleptic Medication - Metabolic screening should include: - Blood Pressure, BMI, Glucose or Hgb A1c, & a - Lipid profile from within the past 365 days. Metabolic Screening () Not Applicable, patient not on a neuroleptic. OR () Patient on a neuroleptic(s) . Enter below results for Hemoglobin A1C, and lipid panel if obtained during the last 365 days. BMI: 51.000 Blood Pressure: 144/75 Laboratory Results From [facility] (If applicable): [x] Discharge Instructions General Discharge Information Multiple Neuroleptics: ([x]) Not Applicable OR Document below three failed attempts at monotherapy, or a plan to taper to monotherapy, or augmentation of Clozapine. () Discharge Diet Regular Discharge Activity Normal DC Disposition: Returning to home. Referrals Ordered Referrals Provider Referral 01/18/18 For Groups: [[facility]] [facility] [address] [place] [address] IOP intake: 01/18/18, at 11:30am Kalia career development specialist Flakita: [phone] Provider Referral 02/05/18 For Providers: [[facility]] For Groups: [Dawna Gale APRN] Dawna Gale APRN [facility] [address] [place] [address] Appointment: 06/07/18, at 1pm Patient will contact [facility] at [phone] to make an appointment with her primary care physician. Patient will contact Dr. Stoney Smith at [phone] to schedule an appointment. Prescriptions Stop taking the following medications: Bupropion HCl (Wellbutrin XL) 150 MG TAB.ER.24H ORAL DAILY Qty = 30 Fluoxetine HCl (Fluoxetine HCl) 20 MG CAPSULE ORAL DAILY Qty = 60 Trazodone HCl (Trazodone HCl) 150 MG TABLET ORAL Every night Qty = 30 Continue taking these medications: Prednisone (Prednisone) 10 MG TABLET 0.5 Tablet ORAL DAILY Comments: Last Taken:01/18/18 Time:8am Hydroxychloroquine Sulfate (Hydroxychloroquine Sulfate) 200 MG TABLET 1 Tablet ORAL TWICE DAILY Comments: Last Taken:01/18/18 Time:8am Oxycodone HCl (Oxycontin) 60 MG TAB.ER.12H 1 Tablet ORAL TWICE DAILY Comments: Last Taken:01/18/18 Time:8am Folic Acid (Folic Acid) 1 MG TABLET 1 Tablet ORAL TWICE DAILY Comments: Last Taken:01/18/18 Time:8am Rivaroxaban (Xarelto) 20 MG TABLET 1 Tablet ORAL Every night Instructions: with food Comments: Last Taken:01/17/18 Time:5pm Ergocalciferol (Vitamin D2) (Vitamin D2) 50,000 UNIT CAPSULE 1 Capsule ORAL EVERY SUNDAY Comments: Last Taken:01/15/18 Time:9am Oxycodone HCl (Oxycodone HCl) 30 MG TABLET 1 Tablet ORAL Every 4 hours Comments: Last Taken:01/18/18 Time:9am Pregabalin (Lyrica) 100 MG CAPSULE 1 Capsule ORAL THREE TIMES DAILY Comments: Last Taken:01/18/18 Time:9am Albuterol Sulfate (Proair Hfa) 8.5 GM HFA.AER.AD 2 Puff Inhale through mouth EVERY 4-6 HOURS NEEDED as needed for WHEEZE Qty = 1 Comments: NOT USED IN HOSPITAL Metoprolol Succinate (Metoprolol Succinate) 50 MG TAB.ER.24H 1 Tablet ORAL Every Morning Qty = 90 Comments: Last Taken:01/18/18 Time:8am Hydroxyzine Pamoate (Hydroxyzine Pamoate) 25 MG CAPSULE 1 Capsule ORAL 4 TIMES A DAY Qty = 120 Comments: Last Taken:01/18/18 Time:7am Diazepam (Diazepam) 5 MG TABLET 1 Tablet ORAL THREE TIMES DAILY Qty = 120 Comments: Last Taken:01/18/18 Time:8am Carbamazepine (Carbamazepine XR) 400 MG TAB.ER.12H 1 Tablet ORAL TWICE DAILY Qty = 60 Comments: Last Taken:01/18/18 Time:8am Methotrexate/Pf (Rasuvo 25 MG/0.5 Ml Autoinj) 25 MG/0.5 ML AUTO.INJCT 1 Inj INJECTABLE EVERY SUNDAY Qty = 2 Comments: Last Taken:01/14/18 Time:5pm Lidocaine HCl (Lidocaine) (Unknown Strength) OINT...G. 4 Ointment On the skin TWICE DAILY as needed for PAIN Comments: Last Taken:01/12/18 Time:4pm Venlafaxine HCl (Venlafaxine HCl ER) 150 MG CAP.ER.24H 1 Capsule ORAL DAILY Qty = 30 Comments: Last Taken:01/18/18 Time:8am Start taking the following new medications: Clindamycin HCl (Clindamycin HCl) 150 MG CAPSULE 1 Capsule ORAL EVERY 8 HOURS Qty = 11 No Refills Comments: Last Taken:01/18/18 Time:1pm Fluoxetine HCl (Fluoxetine HCl) 20 MG CAPSULE 3 Capsule ORAL DAILY BEFORE BREAKFAST Qty = 42 No Refills Comments: Last Taken:01/18/18 Time:8am Trazodone HCl (Trazodone HCl) 100 MG TABLET 2 Tablet ORAL AT BEDTIME Qty = 28 No Refills Comments: Last Taken:01/17/18 Time:10pm Cyanocobalamin (Vitamin B-12) 1,000 MCG TABLET 1 Tablet ORAL DAILY Qty = 14 No Refills Comments: Last Taken:01/18/18 Time:8am Benzocaine (Orabase) 20 % PASTE..G. 1 Application TOPICAL EVERY 4 HOURS NEEDED as needed for tooth/mouth pain Qty = 1 No Refills Comments: Last Taken:01/16/18 Time:10pm Levothyroxine Sodium (Synthroid) 100 MCG TABLET 1 Tablet ORAL DAILY Qty = 14 No Refills Comments: Last Taken:01/18/18 Time:7am Other Inst/Recommendations See PCP about labs, see dentist, see rhematologist, see endo (Dr. Jean-Baptiste). Studies Pending at Discharge None. Copies To: Intensive Outpt Psychiatry; Estiven WANG,Yury Starks
--- NOTE | 2018-01-18 17:40 | SOCIAL WORKER PROG NOTE PSYCH ---
Social Work Progress Note Progress Note Dr. Lopez and this editorial writer met with the patient. She reported feeling "numb." She stated that she went to bed early last night, however, struggled with sleep due to interruptions from nursing regarding medications. She described her sadness at a 8/10, anxiety at a 4/10. She stated that she was not feeling hopeless. She stated that she was feeling helpless, a "little" worthless and guilty. This editorial writer met with the patient following the meeting with Dr. Lopez. She identified a safety plan in which she would "call Edward" (a friend) and also utilize the crisis numbers and warm lines that will be provided upon discharge. Patient stated that she would schedule an appointment with her primary care provider at [facility] and with Dr. Stoney Smith (both numbers provided to the patient) when she returns home today. Patient accepted the IOP intake with for today at 11:30am. Patient maintains interest in individual therapy and agreeable to referral with [facility] in addition to IOP. Her insurance information was provided to the action finisher, Deandra Gomes, who will inform this editorial writer if they accept her insurance. Patient was also provided with Flakita's number ([facility] patient care technician). Patient maintained that she is not intersted in a referral to [facility] (crisis and respite in [place] and [place]) as she would like to return home to her apartment. Patient stated that she is still waiting for her belongings to be returned to her at the unit by her sister. Patient stated that her sister may come to the unit to return the belongings, but no medical information is to be shared with her and she is not to be involved in the patient's treatment. Patient stated that she scheduled a ride home from [facility] through [email or web address]. This editorial writer was contacted by Haleigh Romero LCSW, [facility] ([place]) clinical field sales consultant. Haleigh was informed of the discharge plans, medications, diagnosis and patient's current symptoms. Haleigh stated that she would relay this information to Shoshana Case (patient's DCF worker) and that this editorial writer did not need to contact Shoshana. Patient was informed of this conversation. This editorial writer was informed by nursing staff that the patient's belongings were returned, however, money was missing. Patient was provided with money for [email or web address] today. Patient authorized this editorial writer to inform that Care that she will not be returning. This editorial writer spoke with Vero to inform that patient would not be returning and was referred elsewhere. Patient signed a CCT GABRIEL, which was provided to Meseret in [facility]. This editorial writer received call from Deandra Gomes, who stated that they would be able to accept her insurance. This editorial writer provided clinical information. Due to unclear information regarding living conditions, patient will be offered to schedule appointments at their office in [place]. This editorial writer spoke with the patient, who was agreeable to schedule office appointments in [place] and would accept a call from Deandra. This was relayed to Deandra and, upon her request, the [facility] [employer] referral sheet, psychiatrist discharge summary and patient health summary were faxed to [phone]. She stated that she would call the patient to schedule an appointment. Faxed Referral(s) 1 Referred To: Deandra Gomes, [facility] Transition of Care Documents sent: Health Summary, client referral sheet, psychiatrist discharge summary, patient health summary Faxed to: Deandra Gomes Fax #: [phone] Faxed by: Durga Steele LCSW Date faxed: 01/18/18 Time Faxed: [phone] Faxed Referral(s) 2 Referred To: [facility] Transition of Care Documents sent: Health Summary Faxed to: IOP Fax #: [phone] Faxed by: Durga Steele LCSW Date faxed: 01/18/18 Time Faxed: [phone]
--- NOTE | 2018-01-21 16:49 | SOCIAL WORKER PROG NOTE PSYCH ---
Social Work Progress Note Progress Note This keno writer received call from Roseanna Motta stating that she received the discharge clinical which had been left on Sunday. She called back asking for the patient's mental status at discharge, number of IOP days per week she will attend and start date for IOP. Roseanna was informed that this is scheduled for 09/01. start: 01/23/18 end: 04/24/18 number of IOP days: 18 Auth: [id number] Contact: Roseanna Ovalle [phone] Discharge clinical not needed. (Authorization provided to Sylvia Bland at [facility]).
== END 2018-01-18 12:10 | DRG 885 ==
LOC: ERH 19:03 → ERHI 01-11 20:02 → CP SOUTH 01-11 20:02 → ENTRNSPT 01-11 21:31 → EDTRNSPT 01-11 21:44 → EDTRNSPTSTS 01-11 21:44 → CP SOUTH 01-11 21:57 → CMPTRNSPT 01-11 22:01 → ENRESERV 01-11 23:59 → CP SOUTH 01-18 12:10
PROVIDERS: Physician Assistant Medical; Student in an Organized Health Care Education/Training Program
DX: F33.9 Major depressive disorder, recurrent, unspecified (principal); M33.20 Polymyositis, organ involvement unspecified; E66.9 Obesity, unspecified
CPT/HCPCS: 36415; 73110-LT; 80307; 81003; 81025; 86376; 86800; G0463; G0480; J3360; J3490; J7512; J9250

== ENCOUNTER 2018-02-06 16:06 | Inpatient (IN) | payer OTHER ==
[~2018-02-06] VITALS: Ht 170.2 cm; Wt 150.9 kg
[~2018-02-06 16:06] MED LIST changes: +CLINDAMYCIN HC150 M1 PO; +FLUOXETINE HCL20 M2 PO; +ORABASE11.9 GM TP; +SYNTHROID100 MCG PO; +TRAZODONE HCL100 M1 PO; +TRAZODONE HCL150 M1 PO; +VENLAFAXINE HC150 MG PO; +VITAMIN B-121000 MC3 PO
--- NOTE | 2018-02-06 16:22 | ED INFLUENZA/URI COMPLAINT ---
History of Present Illness General Chief Complaint: Fever Stated Complaint: BIBA C/C FEVER/CHILLS X 1 DAY Source: patient, old records Exam Limitations: no limitations Vital Signs & Intake/Output Vital Signs & Intake/Output Vital Signs Date Time Temp Pulse Resp B/P B/P Pulse O2 O2 Flow FiO2 Mean Ox Delivery Rate 02/06 210 94 Nasal 1.0L Cannula 02/06 2045 97.6 71 20 124/62 96 Nasal 2.0L Cannula 02/06 190 97.4 96 18 92 Room Air 02/06 1905 121/56 02/06 1710 98.0 02/06 1649 96 Nasal 3.0L Cannula 02/06 1611 98.0 79 16 110/51 96 Nasal 3.0L Cannula Allergies Coded Allergies: Penicillins (Severe, HIVES 06/25/17) ibuprofen (Intermediate, HIVES 06/25/17) levofloxacin (Intermediate, "CAUSED MY RUPTURED TENDON" 06/25/17) Sulfa (Sulfonamide Antibiotics) ("MOM TOLD HER SHE WAS ALLERGIC" 06/25/17) metoclopramide (DYSTONIA 06/25/17) Triage Note: PT BIBA FROM PCP C/C FEVERS, MYALGIAS, ARTHRALGIAS AND CHILLS X 1 DAY. PT STATES T-MAX AT HOME 104.0, TOOK TYLENOL AT 1200. CURRENT ORAL TEMP 98.0 STATES MILD COUGH. Triage Nurses Notes Reviewed? yes Onset: Abrupt Duration: day(s): (1), constant Timing: recent history Severity: moderate Severity Numbers: 5 Prior Episodes/Possible Cause: occassional episodes No Modifying Factors: none Associated Symptoms: denies : No Patient currently breastfeeds: No HPI: 32-year-old female history of PE on xarelto, polymyositis, mixed connective tissue disorder, bipolar disorder Zentz to ER for evaluation stating that she's had bodyaches generalized malaise fever chills. She states her fever was as high as 104 at home. She denies sore throat ear pain. No cough shortness of breath chest pain abdominal pain nausea vomiting diarrhea. No urinary urgency frequency dysuria. No rashes to her skin no recent travel no recent tick or insect bites. She denies any sick contacts (Rony SEBASTIAN,Ben) Reconcile Medications Albuterol Sulfate (Proair Hfa) 8.5 GM HFA.AER.AD 2 PUF INH Q4-6 PRN PRN WHEEZE Carbamazepine (Carbamazepine XR) 400 MG TAB.ER.12H 1 TAB PO BID MENTAL HEALTH (Reported) Cyanocobalamin (Vitamin B-12) 1,000 MCG TABLET 1 TAB PO DAILY low vitamin B12 Diazepam 5 MG TABLET 1 TAB PO 4XDAILY anxiety (Reported) Ergocalciferol (Vitamin D2) (Vitamin D2) 50,000 UNIT CAPSULE 1 CAP PO QTUES SUPPLEMENT (Reported) Fluoxetine HCl 20 MG CAPSULE 3 CAP PO DAILY AC depression Folic Acid 1 MG TABLET 1 TAB PO BID SUPPLEMENT (Reported) Hydroxychloroquine Sulfate 200 MG TABLET 1 TAB PO BID POLYMYSITIS (Reported) Hydroxyzine Pamoate 25 MG CAPSULE 1 CAP PO 4 TIMES/DAY ANXIETY (Reported) Levothyroxine Sodium (Synthroid) 100 MCG TABLET 1 TAB PO DAILY hypothyroidism Lidocaine HCl (Lidocaine) (Unknown Strength) OINT...G. 4 OIN TOP BID PRN PAIN (Reported) Methotrexate/Pf (Rasuvo 25 MG/0.5 Ml Autoinj) 25 MG/0.5 ML AUTO.INJCT 1 INJ INJ QMON POLYMYSITIS (Reported) Metoprolol Succinate 50 MG TAB.ER.24H 1 TAB PO QAM HEART/BP (Reported) Oxycodone HCl (Oxycontin) 60 MG TAB.ER.12H 1 TAB PO BID PAIN (Reported) Oxycodone HCl 30 MG TABLET 1 TAB PO 4XDAILY PAIN (Reported) Prednisone 10 MG TABLET 0.5 TAB PO DAILY POLYMYOSITIS (Reported) Pregabalin (Lyrica) 100 MG CAPSULE 1 CAP PO TID PAIN (Reported) Rivaroxaban (Xarelto) 20 MG TABLET 1 TAB PO QPM BLOOD THINNER (Reported) with food Trazodone HCl 100 MG TABLET 2 TAB PO QPM PRN SLEEP (Reported) Venlafaxine HCl (Venlafaxine HCl ER) 150 MG CAP.ER.24H 1 CAP PO DAILY MENTAL HEALTH (Reported) (Eugenio Rojo MD) Past History Travel History Traveled to [place] past 21 day No Medical History Any Pertinent Medical History? see below for history Neurological: NONE EENT: NONE Cardiovascular: NONE Respiratory: pulmonary embolism, ASTHMA R\\T SPORTS PNA Gastrointestinal: tubular adenoma Hepatic: NONE Renal: NONE Musculoskeletal: chronic back pain, degen joint disease, fibromyalgia, osteoarthritis, MIXED CONNECTIVE TISSUE DISEASE RSD BULGING DISC TENDON TRANSFER POLYMYOCITIS CARPAL TUNNEL R WRIST FX Psychiatric: bipolar disease, depression Endocrine: vitamin D deficiency Blood Disorders: NONE Cancer(s): NONE VIRTUAL REALITY SPECIALIST/Reproductive: NONE Other Medical Hx: MIXED CONNECTIVE TISSUE DISORDER History of MRSA: No History of VRE: No History of CDIFF: No Surgical History Surgical History: unobtainable Psychosocial History Who do you live with Patient/Self Services at Home None What is your primary language [place] Tobacco Use: Quit >30 days ago Family History Family History, If Any: Relation not specified for: FH: lung cancer FH: thyroid condition Hx Contributory? No (Ben Barbosa) Review of Systems Review of Systems Constitutional: Reports: see HPI. Comments Review of systems: See HPI, All other systems negative. Constitutional, chills fever, malaise no weight loss HEENT: no sore throat no congestion, no ear pain Cardiovascular: No chest pain , no palpitation Skin: no rashes, no change in skin Respiratory: No dyspnea no cough no sputum GI: No nausea no vomiting, no diarrhea : No dysuria No hematuria, no frequency Muscle skeletal: No joint pain, no back pain, no neck pain, Neurologic: , no headache Heme/endocrine: No bruising Immunology: No lymphadenopathy (Ben Barbosa) Physical Exam Physical Exam General Appearance: well developed/nourished, alert, awake Ears, Nose, Throat: normal ENT inspection, moist mucous membrane Comments: Well-developed well-nourished patient in no apparent distress. Head/Face: Atraumatic, no maxillary/frontal sinus tenderness, no facial swelling Eyes: PERRL, EOMI, no conjunctival injection. No nystagmus Ear:External auditory canal and Tympanic membranes clear, no erythema, no FB. Nose: atraumatic.Normal inspection: No bleeding, no septal hematoma Throat: Moist mucous membranes.Pharynx normal. No pharyngeal erythema/exudate seen. No stridor/drooling or assymetry. No swelling or edema. Neck: Supple, no lymphadenopathy, FROM Back: FROM Cardiovascular: Regular rate and rhythms no murmurs rubs or gallops, Respiratory: Chest nontender.There were no bony deformities, no asymmetry. No respiratory distress. Patient speaking in full complete sentences. Breath sounds clear to auscultation bilaterally: NO W/R/R Abdomen: Soft Nontender morbidly obese normal bowel sounds Extremities: full range of motion Neuro: awake, alert, and oriented to person, place and time. There were no obvious focal neurologic abnormalities. Skin: Warm & dry;No appreciable rash on exposed skin Psych: Mood affect normal, normal memory normal judgment. Core Measures Sepsis Present: No Sepsis Focused Exam Completed? No (Rony SEBASTIAN,Ben) Progress Differential Diagnosis: influenza, otitis, pneumonia, pharyngitis, sinusitis, bronchitis viral syndrome, uti Plan of Care: Orders Procedure Date/time Status Regular Diet 02/07 B Active LACTIC ACID 02/06 2206 Active ARTERIAL BLOOD GAS (GEN) 02/06 2026 Active Add-on Test (ER Only) 02/06 2019 Active Pathway - chart 02/06 2001 Active House Staff 02/06 2001 Active Patient Data 02/06 2001 Active Code Status 02/06 2001 Active Patient Data 02/06 1958 Active OXYGEN SETUP (GEN) 02/06 1923 Active Saline Lock 02/06 1923 Active Admit to inpatient 02/06 192 Active Vital Signs 02/06 192 Active Activity/Ambulation 02/06 1923 Active Code Status 02/06 192 Complete BLOOD CULTURE 02/06 1906 Active LACTIC ACID 02/06 1906 Active Intake & Output 02/06 1844 Active Add-on Test (ER Only) 02/06 1746 Active Add-on Test (ER Only) 02/06 1744 Active URINE DRUG SCREEN FOR ER ONLY 02/06 1743 Complete Add-on Test (ER Only) 02/06 1657 Active CULTURE,URINE 02/06 1648 Active THYROID STIMULATING HORMONE 02/06 1645 Active LACTIC ACID 02/06 1645 Active HUMAN BETA HCG SCREEN 02/06 1645 Active CREATINE PHOSPHOKINASE 02/06 1645 Active URINALYSIS 02/06 1635 Complete COMPREHENSIVE METABOLIC PANEL 02/06 1635 Active CBC WITHOUT DIFFERENTIAL 02/06 1635 Complete RAPID VIRAL INFLUENZA A 02/06 1617 Complete TRC EVALUATION (GEN) 02/06 UNK Active VTE Mechanical Prophylaxis 02/06 UNK Active Current Medications Sig/Paul Start time Last Medication Dose Stop Time Status Admin Levothyroxine Sodium 0.1 MG DAILY 02/07 900 AC (Synthroid) Metoprolol Succinate 50 MG QAM 02/07 900 AC (Toprol Xl) Prednisone 5 MG DAILY 02/07 900 AC Venlafaxine HCl 150 MG DAILY 02/07 900 AC (Effexor Xr) Fluoxetine HCl 60 MG DAILY AC 02/07 07 AC (Prozac) Carbamazepine 400 MG BID 02/06 2100 AC (Tegretol) Hydroxychloroquine 200 MG BID 02/06 2100 AC Sulfate (Plaquenil 200MG Tab) Oxycodone HCl 30 MG FOUR TIMES A DAY 02/06 2100 AC (Roxicodone) Oxycodone HCl 60 MG BID 02/06 2100 AC (OxyCONTIN) Pregabalin 100 MG TID 02/06 2100 AC (Lyrica) Albuterol Sulfate 2 PUF Q4-6 PRN PRN 02/06 2045 AC (Ventolin) Rivaroxaban 20 MG 1700 02/06 2045 AC (Xarelto) Acetaminophen 325 MG Q6 PRN 02/06 2015 AC (Tylenol) Laboratory Tests 02/06/182039: pH 7.32 L, pCO2 55 H, pO2 92, HCO3 27, ABG O2 Sat (Measured) 96.0, P-50 (Temp Corrected) N, Carboxyhemoglobin 0.1 L, O2 Concentration % 2L, Temperature 97.4, O2 Delivery Method NC, Phlebotomy Draw Site RIGHT RADIAL 02/06/181921: Urine Opiates Screen 933.00, Methadone Screen 48, Barbiturate Screen < 60, Ur Phencyclidine Scrn < 6.00, Amphetamines Screen < 100, U Benzodiazepines Scrn > 800 H, Urine Cocaine Screen < 50, Urine Cannabis Screen 6.30, Urine Color YEL, Urine Clarity CLEAR, Urine pH 6.0, Ur Specific [place] 1.010, Urine Protein NEG, Urine Ketones NEG, Urine Nitrite NEG, Urine Bilirubin NEG, Urine Urobilinogen 0.2, Ur Leukocyte Esterase NEG, Ur Microscopic EXAM NOT REQUIRED, Urine Hemoglobin NEG, Urine Glucose NEG 02/06/18 1645: Anion Gap 8, Estimated GFR > 60, BUN/Creatinine Ratio 13.3, Glucose 110 H, Lactic Acid Pending, Calcium 8.6, Total Bilirubin 0.4, AST 19, ALT 19, Alkaline Phosphatase 129 H, Creatine Kinase 116, Total Protein 6.9, Albumin 3.8, Globulin 3.1, Albumin/Globulin Ratio 1.2, TSH 0.847, Total Beta HCG NEGATIVE, CBC w Diff NO MAN DIFF REQ, RBC 4.01 L, MCV 88.9, MCH 29.5, MCHC 33.2, RDW 14.0 , MPV 8.5, Gran % 72.0, Lymphocytes % 23.2, Monocytes % 3.9, Eosinophils % 0.7, Basophils % 0.2, Absolute Granulocytes 7.6 H, Absolute Lymphocytes 2.4, Absolute Monocytes 0.4, Absolute Eosinophils 0.1, Absolute Basophils 0 Microbiology 02/06 2002 BLOOD: Blood Culture - RECD 02/06 1939 BLOOD: Blood Culture - RECD 02/06 1922 URINE ROUT: Urine Culture - RECD 02/06 162 NASOPHARYN: Influenza Virus A & B Rapid Smear - COMP Labs ordered patient medicated Tylenol IV fluids resting in no acute distress nontoxic appearing at this time Repeat evaluation patient currently sleeping when awoken I discussed with her at length all of her labs pending x-ray Case discussed with Dr. ROJO- upon ambulation patient became dyspneic and tachypneic oxygen saturation dropped to 92% from 96% at rest. I discussed with her plan of care she states she has been admitted to the hospital the past for pneumonia. Rocephin and azithromycin IV ordered Diagnostic Imaging: Viewed by Me: Radiology Read. Discussed w/RAD: Radiology Read. Radiology Impression: PATIENT: SHAVON FARRIS PRESENT AGE: 32 PATIENT ACCOUNT NO: [id number] : 83 LOCATION: [facility] ORDERING PHYSICIAN: Ben SEBASTIAN SERVICE DATE: 02/06/18 EXAM TYPE: RAD - XRY-PORTABLE CHEST XRAY EXAMINATION: XR PORTABLE CHEST CLINICAL INFORMATION: 32-year-old woman with fever. COMPARISON: 06/25/2017 chest radiograph TECHNIQUE: Portable frontal view of the chest was obtained. FINDINGS: Findings are limited by low lung volumes and patient body habitus. Despite these limitations, there appear to be patchy new areas of airspace opacity in the right lower lung and left retrocardiac region, both suspicious for acute pneumonia. Heart size is prominent, although this is likely projectional and technique related. No pleural effusions or pneumothoraces are visible. IMPRESSION: Suspected areas of new consolidation in both lower lungs. DICTATED BY: Brianna Lee MD DATE/TIME DICTATED:02/06/181802 MILK PICKUP TRUCK DRIVER:ARMAND DATE/TIME TRANSCRIBED:02/06/181802 CONFIDENTIAL, DO NOT COPY WITHOUT APPROPRIATE AUTHORIZATION. <Electronically signed in Other Vendor System> SIGNED BY: Brianna Lee MD 02/06/181808 Initial ED EKG: none (Ben Barbosa) Departure Departure Time of Disposition: 1940 Disposition: STILL A PATIENT Condition: Stable Clinical Impression Primary Impression: Pneumonia Referrals: Yury Milligan MD (PCP/Family) Departure Forms: Customer Survey General Discharge Information Admission Note Spoke With: Fabricio Candelario MD Documentation of Exam: Documentation of any treatments & extenuating circumstances including Concerns Regarding Discharge (functional status, medication knowledge or non-compliance, living conditions, etc.) that warrant an admission rather than observation: IV antibiotics and labs trend cultures premature discharge would BE medically harmful respiratory treatments when necessary IV steroids. Patient desaturated with walking not normally on home O2 (Ben Barbosa) PA/[employer] FACTORY WORKER Co-Sign Statement Statement: ED Attending supervision documentation- x I saw and evaluated the patient. I have also reviewed all the pertinent lab results and diagnostic results. I agree with the findings and the plan of care as documented in the PA's/PLAST[employer] FACTORY WORKER's documentation. Hx polymyositis on chronic steroids with multilobar pneumonia. [] I have reviewed the ED Record and agree with the PA's/[employer]AST[employer] FACTORY WORKER's documentation. [] Additions or exceptions (if any) to the PAs/PLAST[employer] FACTORY WORKER's note and plan are summarized below: [] (Ld WANG,Eugenio)
[2018-02-06 17:29] LABS: ABSOLUTE BASOPHIL COUNT 0 /CUMM (0.0-0.2); ABSOLUTE EOSINOPHIL COUNT 0.1 /CUMM (0.0-0.7); ABSOLUTE GRANULOCYTE CT 7.6 /CUMM (1.4-6.5); ABSOLUTE LYMPH COUNT 2.4 /CUMM (1.2-3.4); ABSOLUTE MONOCYTE COUNT 0.4 /CUMM (0.10-0.60); BASOPHIL % 0.2 % (0.0-2.0); EOSINOPHIL % 0.7 % (0-5); HEMATOCRIT 35.6 % (37-47); MEAN CORPUSCULAR HGB 29.5 PG (27.0-31.0); MEAN CORPUSCULAR HGB CONC 33.2 G/DL (33.0-37.0); MEAN CORPUSCULAR VOLUME 88.9 FL (81.0-99.0); MEAN PLATELET VOLUME 8.5 FL (7.4-10.4); PLATELET COUNT 258 /CUMM (130-400); RED BLOOD CELL CT 4.01 /CUMM (4.20-5.40); WHITE BLOOD CELL COUNT 10.5 /CUMM (4.8-10.8)
--- NOTE | 2018-02-06 18:09 | RADIOLOGY REPORT ---
EXAMINATION: XR PORTABLE CHEST CLINICAL INFORMATION: 32-year-old woman with fever. COMPARISON: 06/25/2017 chest radiograph TECHNIQUE: Portable frontal view of the chest was obtained. FINDINGS: Findings are limited by low lung volumes and patient body habitus. Despite these limitations, there appear to be patchy new areas of airspace opacity in the right lower lung and left retrocardiac region, both suspicious for acute pneumonia. Heart size is prominent, although this is likely projectional and technique related. No pleural effusions or pneumothoraces are visible. IMPRESSION: Suspected areas of new consolidation in both lower lungs.
--- NOTE | 2018-02-06 19:57 | History & Physical ---
TrentonMildred Allan Maddox [birth year]: General Information and HPI MD Statement: I have seen and personally examined SHAVON FLYNN and documented this H&P. The patient is a 32 year old F who presented with a patient stated chief complaint of [Fever/Chills]. Source of Information: patient, old records Exam Limitations: clinical condition History of Present Illness: Ms. Flynn is a 32-year-old female with PMH of PE on xarelto, polymyositis on prednisone 5 mg daily, mixed connective tissue disorder on MTX/ hydroxychloroquine, bipolar disorder on diazepam presented to ER for evaluation stating that she's had bodyaches generalized malaise, fever and chills for 1 day. During our clinical interaction, patient appeared to be very lethargic and drowsiness and was given limited history. Patient denies any cough/sick contacts/chest pain/shortness of breath, however complaining of fever Tmax 104.0 and body aches over the day, and had use Tylenol for it, and per staff note, later patient over to the PCP and was sent to the ER. Patient also stated that she had a history of DODIE, and was on home CPAP. Per nurse's note, patient went to the bathroom and that appeared to be shortness of breath on exertion, and came back was oxygen saturation of 92%. During our clinical interaction, patient denied dietary/appetite change. Patient denied Chest Pain/Palpitation/exercise intolerance/Abdominal pain, bowel movement/urinary abnormality, or other skin/musculoskeletal/neurological disorders. Allergies/Medications Allergies: Coded Allergies: Penicillins (Severe, HIVES 06/25/17) ibuprofen (Intermediate, HIVES 06/25/17) levofloxacin (Intermediate, "CAUSED MY RUPTURED TENDON" 06/25/17) Sulfa (Sulfonamide Antibiotics) ("MOM TOLD HER SHE WAS ALLERGIC" 06/25/17) metoclopramide (DYSTONIA 06/25/17) Home Med list Albuterol Sulfate (Proair Hfa) 8.5 GM HFA.AER.AD 2 PUF INH Q4-6 PRN PRN WHEEZE Carbamazepine (Carbamazepine XR) 400 MG TAB.ER.12H 1 TAB PO BID MENTAL HEALTH (Reported) Cyanocobalamin (Vitamin B-12) 1,000 MCG TABLET 1 TAB PO DAILY low vitamin B12 Diazepam 5 MG TABLET 1 TAB PO 4XDAILY anxiety (Reported) Ergocalciferol (Vitamin D2) (Vitamin D2) 50,000 UNIT CAPSULE 1 CAP PO QTUES SUPPLEMENT (Reported) Fluoxetine HCl 20 MG CAPSULE 3 CAP PO DAILY AC depression Folic Acid 1 MG TABLET 1 TAB PO BID SUPPLEMENT (Reported) Hydroxychloroquine Sulfate 200 MG TABLET 1 TAB PO BID POLYMYSITIS (Reported) Hydroxyzine Pamoate 25 MG CAPSULE 1 CAP PO 4 TIMES/DAY ANXIETY (Reported) Levothyroxine Sodium (Synthroid) 100 MCG TABLET 1 TAB PO DAILY hypothyroidism Lidocaine HCl (Lidocaine) (Unknown Strength) OINT...G. 4 OIN TOP BID PRN PAIN (Reported) Methotrexate/Pf (Rasuvo 25 MG/0.5 Ml Autoinj) 25 MG/0.5 ML AUTO.INJCT 1 INJ INJ QMON POLYMYSITIS (Reported) Metoprolol Succinate 50 MG TAB.ER.24H 1 TAB PO QAM HEART/BP (Reported) Oxycodone HCl (Oxycontin) 60 MG TAB.ER.12H 1 TAB PO BID PAIN (Reported) Oxycodone HCl 30 MG TABLET 1 TAB PO 4XDAILY PAIN (Reported) Prednisone 10 MG TABLET 0.5 TAB PO DAILY POLYMYOSITIS (Reported) Pregabalin (Lyrica) 100 MG CAPSULE 1 CAP PO TID PAIN (Reported) Rivaroxaban (Xarelto) 20 MG TABLET 1 TAB PO QPM BLOOD THINNER (Reported) with food Trazodone HCl 100 MG TABLET 2 TAB PO QPM PRN SLEEP (Reported) Venlafaxine HCl (Venlafaxine HCl ER) 150 MG CAP.ER.24H 1 CAP PO DAILY MENTAL HEALTH (Reported) Past History Travel History Traveled to [place] past 21 day No Medical History Neurological: NONE EENT: NONE Cardiovascular: NONE Respiratory: pulmonary embolism, ASTHMA R\\T SPORTS PNA Gastrointestinal: tubular adenoma Hepatic: NONE Renal: NONE Musculoskeletal: chronic back pain, degen joint disease, fibromyalgia, osteoarthritis, MIXED CONNECTIVE TISSUE DISEASE RSD BULGING DISC TENDON TRANSFER POLYMYOCITIS CARPAL TUNNEL R WRIST FX Psychiatric: bipolar disease, depression Endocrine: vitamin D deficiency Blood Disorders: NONE Cancer(s): NONE SU[employer] FABRICATION/Reproductive: NONE Other Medical Hx: MIXED CONNECTIVE TISSUE DISORDER History of MRSA: No History of VRE: No History of CDIFF: No Surgical History Surgical History: unobtainable Past Family/Social History Family History Relations & Conditions if any Relation not specified for: FH: lung cancer FH: thyroid condition Psychosocial History Who Do You Live With? child Services at Home: None Review of Systems Review of Systems Constitutional: Reports: see HPI. Exam & Diagnostic Data Last 24 Hrs of Vital Signs/I&O Vital Signs Date Time Temp Pulse Resp B/P B/P Pulse O2 O2 Flow FiO2 Mean Ox Delivery Rate 02/06 1906 97.4 96 18 92 Room Air 02/06 1710 98.0 02/06 1649 96 Nasal 3.0L Cannula 02/06 1611 98.0 79 16 110/51 96 Nasal 3.0L Cannula Physical Exam General Appearance Alert, Oriented X3, Cooperative, appeared to be lethargic Skin No Rashes, No Breakdown Skin Temp/Moisture Exam: Warm/Dry Sepsis Skin Exam (color): Normal for Ethnicity HEENT Atraumatic Neck Supple, No JVD Cardiovascular Regular Rate, distant heart sound due to body weight Lungs Clear to Auscultation, Normal Air Movement, Difficult to auscultate Abdomen Normal Bowel Sounds, Soft Extremities No Cyanosis, No Edema, Normal Pulses Last 24 Hrs of Labs/Izaiah: Laboratory Tests 02/06/181921: Urine Opiates Screen 933.00, Methadone Screen 48, Barbiturate Screen < 60, Ur Phencyclidine Scrn < 6.00, Amphetamines Screen < 100, U Benzodiazepines Scrn > 800 H, Urine Cocaine Screen < 50, Urine Cannabis Screen 6.30, Urine Color YEL, Urine Clarity CLEAR, Urine pH 6.0, Ur Specific [place] 1.010, Urine Protein NEG, Urine Ketones NEG, Urine Nitrite NEG, Urine Bilirubin NEG, Urine Urobilinogen 0.2, Ur Leukocyte Esterase NEG, Ur Microscopic EXAM NOT REQUIRED, Urine Hemoglobin NEG, Urine Glucose NEG 02/06/18 1645: Anion Gap 8, Estimated GFR > 60, BUN/Creatinine Ratio 13.3, Glucose 110 H, Calcium 8.6, Total Bilirubin 0.4, AST 19, ALT 19, Alkaline Phosphatase 129 H, Creatine Kinase 116, Total Protein 6.9, Albumin 3.8, Globulin 3.1, Albumin/ Globulin Ratio 1.2, TSH 0.847, Total Beta HCG NEGATIVE, CBC w Diff NO MAN DIFF REQ, RBC 4.01 L, MCV 88.9, MCH 29.5, MCHC 33.2, RDW 14.0, MPV 8.5, Gran % 72.0, Lymphocytes % 23.2, Monocytes % 3.9, Eosinophils % 0.7, Basophils % 0.2, Absolute Granulocytes 7.6 H, Absolute Lymphocytes 2.4, Absolute Monocytes 0.4, Absolute Eosinophils 0.1, Absolute Basophils 0 Microbiology 02/06 2002 BLOOD: Blood Culture - RECD 02/06 1939 BLOOD: Blood Culture - RECD 02/06 1922 URINE ROUT: Urine Culture - RECD 02/06 162 NASOPHARYN: Influenza Virus A & B Rapid Smear - COMP Assessment/Plan Assessment: Ms. Flynn is a 32-year-old female with PMH of PE on xarelto, polymyositis on prednisone 5 mg daily, mixed connective tissue disorder on MTX/ hydroxychloroquine, bipolar disorder on diazepam presented to ER for evaluation stating that she's had bodyaches generalized malaise, fever and chills for 1 day. During our clinical interaction, patient appeared to be very lethargic and drowsiness and was given limited history. Patient denies any cough/sick contacts/chest pain/shortness of breath, however complaining of fever Tmax 104.0 and body aches over the day, and had use Tylenol for it, and per staff note, later patient over to the PCP and was sent to the ER. Patient also stated that she had a history of DODIE, and was on home CPAP. Per nurse's note, patient went to the bathroom and that appeared to be shortness of breath on exertion, and came back was oxygen saturation of 92%. Patient also had choking events on foods/water from the past, that she attributed to her history of polymyositis, which also made her felt numb from time to time, without particular triggers. She was not sure whether she had a choking event before this admission. During our clinical interaction, patient denied dietary/appetite change. Patient denied Chest Pain/Palpitation/exercise intolerance/Abdominal pain, bowel movement/urinary abnormality, or other skin/musculoskeletal/neurological disorders. On admission, Vitals: Afebrile, BP of 100/60, stable on nasal cannula 3 L -CBC: WBC 10.5, HH stable, -BMP: CO2 32, otherwise unremarkable -UA/Microbiology:Clear, past microbio negative -CXR: Suspected areas of new consolidation in both lower lungs. -Interventions in ER: Ceftriaxone, Azithromycin, Solumedrol, TYlenol, Fluid bolus, Problem list & Assessment: #Community-acquired pneumonia VS Aspirational: Confirmed with CXR evidence, and fever at home. However no leukocytosis. Patient also had choking events on foods/water from the past, that she attributed to her history of polymyositis, which also made her felt numb from time to time, without particular triggers. She was not sure whether she had a choking event before this admission. #DODIE: Patient had BMI of over 50, and stated DODIE history on CPAP. Which could also explain her drowsiness during our clinical interaction. #PMH of PE on Xarelto, polymyositis, MCTD, anxiety: Patient's use of benzodiazepines, pain medication could contribute to her drowsiness, however urine tox was not positive except for benzodiazepine. Hospital Course: - Admit to general medicine floor -TRC nebulizer, supplemental O2, CPAP as needed for x-ray -Continue antibiotic treatment including clindamycin and azithromycin currently day 1 -Continue home meds except holding diazepam, hydroxyzine, trazodone, and MTX -Pending blood culture 2 -Pending swallow eval. DVT prophylaxis Xarelto + ALPS Regular Diet Full Code As Ranked By This Provider Problem List: 1. Pneumonia Core Measures/Misc (07/01) Acute Coronary Syndrome ACS Diagnosis: No Congestive Heart Failure Congestive Heart Failure Diagnosis No Cerebrovascular Accident CVA/TIA Diagnosis: No VTE (View Protocol) VTE Risk Factors Age>40 No Mechanical VTE Prophylaxis d/t N/A MechProphylax Ordered No VTE Pharm Prophylaxis d/t NA PharmProphylax ordered Sepsis (View protocol) Sepsis Present: No Evelyn Nielsen 02/06/18 2132: Resident Review Statement Resident Statement: examined this patient, discussed with financial services internship Other Findings: Patient is a 32-year-old female with past medical history of pulmonary embolism on Xarelto ,chronic back pain, fibromyalgia, mixed connective tissue disorder, polymyositis, osteoarthritis, DODIE on CPAP(noncompliant), hypothyroidism, bipolar disorder was brought into the ED with a chief complaint of generalized malaise, fever and chills at home. Patient reports that she has been feeling very weak, and had a fever of 104 at home today. Denies any cough, productive sputum, chest pain, nausea, vomiting, abdominal pain, sick contacts, recent travel, rashes, urinary or bowel symptoms. Patient has dysphagia secondary to polymyositis and admits to aspirations and choking sensations. She has history of sleep apnea and is noncompliant with her CPAP. She is also on pain medications for her lower back pain. During examination patient appeared very drowsy and lethargic. Vitals in the ED: Temperature 90.8, pulse 79, respirations 16, blood pressure 110/51, saturating 96% on 3 L nasal cannula. Labs showed no white count, no bandemia, sodium 135, carbon dioxide 32, alkaline phosphatase 129. U tox positive for benzos. UA unimpressive AB.32/55/92 Chest x-ray shows new consolidation in both lower lobes. Physical exam: General: Morbidly obese, drowsy and lethargic. HEENT: PERRLA, EOMI Chest: Good air entry bilaterally, no crackles or wheezes CVS: S1-S2, regular Abdomen: BS positive, no tenderness Extremities: No edema/rashes Assessment Acute hypoxic hypercarbic respiratory failure likely secondary to Aspiration Pneumonia and CPAP non compliance Dysphagia?s/t polymyositis DODIE on CPAP History of PE with antiphospholipid syndrome on Xarelto Mixed connective tissue disorder/polymyositis on steroid Bipolar disorder Hypothyroidism Chronic back pain Plan Admit to [facility] Vitals per protocol Maintain saturation> 92% Gentle hydration with IV normal saline at 75 cc an hour X1 bag Continue IV clindamycin for AP(patient allergic to pinicillin) Formal swallow evaluation in am. Passed bedside swallow eval. Pancultures Urine strep and Legionella Continue CPAP for DODIE Continue prednisone, methotrexate, hydroxy chloroquine for connective tissue disorder/polymyositis Continue bipolar medications, levothyroxin and pain medications DVT prophylaxis Xarelto Full code Moderate/severe pain pathway Fabricio Candelario 02/07/18 0002: Attending MD Review Statement Attending Statement Attending MD Statement: examined this patient, discuss w/resident/PA/CHUCK WAGON COOK, agreed w/resident/PA/CHUCK WAGON COOK, reviewed EMR data (avail), reviewed images, amended to note Attending Assessment/Plan: CC: Body aches and fever PMH: Bipolar disorder, mixed connective tissue disorder with possible polymyositis steroid dependent, complex regional pain syndrome, opiate dependence, history of PE with antiphospholipid syndrome currently on Luc, hypothyroidism, DODIE not using CPAP at home Patient came to ER for feeling very lethargic, poorly, malaise, body aches at home since morning. She checked her fever at home which was 104, she took Tylenol and visited primary care physician and even after 3 hours of Tylenol her temperature was 102 at the PCP office so she was sent to ER. She also endorses mild cough with substernal soreness with coughing but denies any chest pain, chest tightness, pleuritic chest pain, sputum production, dizziness, palpitations, abdominal pain, diarrhea, urinary symptoms, skin rashes. She states that she has been having difficulty swallowing since long time secondary to her mixed connective tissue disorder or polymyositis and aspirates on food many times. She may have had aspirated yesterday but she is not clear about it. Denies any nausea vomiting. She is compliant with her medications but not with her CPAP. She states that recently she attended a birthday democrat at [employer] but other than that no sick contacts, recent travels, URI symptoms. Vitals: T max 98.0, pulse 79, RR 16, blood pressure 110/51, saturating 96% on 2 L On exam: A O 3, cooperative, no acute distress, neck supple, morbidly obese, JVD difficult to assess, no lymphadenopathy, mucosa dry, no focal neurological deficit, no dependent edema, no obvious skin rashes or inflammation CVS: S1-S2, RRR. RS: Bilateral wheezing with prolonged expiration, no obvious crackles. Abdomen: Soft, NT, ND, bowel sounds present. CXR: Suspected areas of new consolidation in both lower Assessment and plan 32-year-old female with extensive past medical history presented in ER 1 day history of malaise, body ache, fever, mild cough with substernal soreness. She states that her fever was 104 at home and 102 at doctor's office but currently afebrile in ER, does not have significant leukocytosis but has diffuse bilateral wheezing on auscultation and chest x-ray reveals bilateral lower lobe consolidation. Patient states that she has been having issues with swallowing secondary to her mixed connective tissue disorder and polymyositis and may have been aspirating at home. Will treat this as an aspiration pneumonia as its bilateral, no significant fever spike or leukocytosis. Influenza negative. Patient may benefit from outpatient barium swallow and upper endoscopy for evaluation for possible esophageal dysmotility. Patient was lethargic at the time of arrival in ER, ABG obtained which shows mildly elevated PCO2 and respiratory acidosis probably combination of DODIE and obesity hypoventilation along with her narcotic use. Patient had benzodiazepines more than 800 in her urine but opiates were within acceptable range. Currently she responds appropriately, no more lethargic or drowsy. + Suspected aspiration pneumonia bilateral lower lobe + History of Bipolar disorder, mixed connective tissue disorder with possible polymyositis steroid dependent, complex regional pain syndrome, opiate dependence, history of PE with antiphospholipid syndrome currently on Luc, hypothyroidism, DODIE not using CPAP at home - Admit to general medicine - Continue TRC nebs - Follow blood cultures - Continue clindamycin for pneumonia - Continue rest of her home medications including prednisone - Continue home doses of Xeralto
[2018-02-06] MEDS ORDERED: TRAZODONE HCL100 M1 PO (20:00)
[2018-02-06 22:34] VITALS: BP 115/66
--- NOTE | 2018-02-07 00:04 | Admission Certification ---
Admission Certification Certification Statement - As attending physician, I certify that at the time of - admission, based on clinical presentation, severity of - symptoms, need for further diagnostic testing and - therapeutic interventions, and risk of adverse outcomes - without in-hospital treatment, in my clinical assessment, - this patient requires an acute hospital stay for a minimum - of two nights or longer. I have also considered psychsocial - factors such as support system, advanced age, financial - issues, cognitive issues, and failed out-patient treatments, - past re-admission history, safety of patient, and lack of - compliance as applicable. Specific rationale supporting this admission is: Pneumonia
[2018-02-07 06:30] VITALS: BP 101/65
--- NOTE | 2018-02-07 07:12 | PN- Housestaff ---
Ariella Patricia MD,[facility] 02/07/18 0712: Subjective Follow-up For: Altered mental status, fever and chills Subjective: Patient visited today, was lying in bed in no acute distress, drowsy but arousable, oriented. No fever or chills, no chest pain, no other events. Patient had no complaint during the day. Was placed on BiPAP due to hypercapnia. With no improvement in mental condition patient was transferred to ICU. Review of Systems Constitutional: Reports: see HPI. Objective Last 24 Hrs of Vital Signs/I&O Vital Signs Date Time Temp Pulse Resp B/P B/P Pulse O2 O2 Flow FiO2 Mean Ox Delivery Rate 02/07 1621 70 96 02/07 1441 68 97 02/07 1313 BIPAP 35% 02/07 1313 94 BIPAP 35% 02/07 1145 68 94 02/07 0801 73 115/66 02/07 0800 95 Nasal 2.0L Cannula 02/07 0630 97.7 80 20 101/65 96 Nasal 2.0L Cannula 02/07 0000 Nasal 2.0L Cannula 02/06 2234 97.4 73 20 115/66 96 Nasal 2.0L Cannula 02/06 2130 Nasal 2.0L Cannula 02/06 2105 94 Nasal 1.0L Cannula 02/06 2045 97.6 71 20 124/62 96 Nasal 2.0L Cannula 02/06 1906 97.4 96 18 92 Room Air 02/06 1905 121/56 02/06 1710 98.0 02/06 1649 96 Nasal 3.0L Cannula Intake & Output 02/07 1600 02/07 0800 02/07 0000 Intake Total 174 668 8587 Output Total Balance 745 777 7717 Intake, IV 126 960 5935 Intake, Oral 0 120 300 Number 0 Bowel Movements Patient 335 lb Weight Weight Reported by Patient Measurement Method Physical Exam General Appearance: Cooperative, No Acute Distress, drowsy but arousable, oriented, obese Sepsis Skin Exam (color): Normal for Ethnicity HEENT: Atraumatic, EOMI Cardiovascular: Normal S1, Normal S2 Lungs: decreased breathing sounds Abdomen: Soft, No Tenderness Current Medications: Current Medications Sig/Paul Start time Last Medication Dose Route Stop Time Status Admin Acetaminophen 325 MG Q6 PRN 02/06 2015 AC PO Acetaminophen 0 .STK-MED ONE 02/06 1712 DC IV Acetaminophen 1,000 MG ONCE ONE 02/06 1700 DC 02/06 N/A 1 UNIT IV 02/06 1714 1710 Albuterol Sulfate 3 ML Q4-6 PRN PRN 02/07 1330 AC INH Albuterol Sulfate 2 PUF Q4-6 PRN PRN 02/06 2045 AC INH Azithromycin 500 MG DAILY 02/07 09 CAN Sodium Chloride 250 ML IV Azithromycin 500 MG ONCE ONE 02/06 1915 DC 02/06 Sodium Chloride 250 ML IV 02/06 Carbamazepine 400 MG BID 02/06 2100 AC 02/07 PO 0801 Ceftriaxone Sodium 1,000 MG DAILY 02/07 09 CAN IV Ceftriaxone Sodium 0 .STK-MED ONE 02/06 2011 DC .ROUTE Ceftriaxone Sodium 1,000 MG ONCE ONE 02/06 193 DC 02/06 IV 02/06 Clindamycin 600 MG IQ8 02/07 0000 AC 02/07 Dextrose/Water 50 ML IV 0759 Enoxaparin Sodium 40 MG DAILY 02/06 2001 DC SC Fluoxetine HCl 60 MG DAILY AC 02/07 0700 AC 02/07 PO 0535 Hydroxychloroquine 200 MG BID 02/06 2100 AC 02/07 Sulfate PO 0802 Levothyroxine Sodium 0.1 MG DAILY 02/07 0900 AC 02/07 PO 0802 Methylprednisolone 0 .STK-MED ONE 02/06 2011 DC .ROUTE Methylprednisolone 125 MG ONCE ONE 02/06 1930 DC 02/06 IV 02/06 Metoprolol Succinate 50 MG QAM 02/07 09 AC 02/07 PO 0801 Oxycodone HCl 30 MG FOUR TIMES A DAY 02/06 2100 AC 02/06 PO 2352 Oxycodone HCl 60 MG BID 02/06 2100 AC 02/06 PO 2354 Prednisone 5 MG DAILY 02/07 0900 AC 02/07 PO 0802 Pregabalin 100 MG TID 02/06 2100 AC 02/06 PO 2353 Rivaroxaban 20 MG 1700 02/06 2045 AC 02/06 PO 2351 Sodium Chloride 1,000 ML Q13H 02/06 2145 DC 02/06 IV 02/07 1044 2227 Sodium Chloride 1,000 ML BOLUS ONE 02/06 1645 DC 02/06 IV 02/06 1744 1649 Venlafaxine HCl 150 MG DAILY 02/07 0900 AC PO Last 24 Hrs of Lab/Izaiah Results Last 24 Hrs of Labs/Mics: Laboratory Tests 02/07/18 1410: pH 7.40, pCO2 43, pO2 98, HCO3 27, ABG O2 Sat (Measured) 97.0, P-50 (Temp Corrected) N, Carboxyhemoglobin 0.5 L, O2 Concentration % 35%, Temperature 97.7 , Respiration Rate 18, O2 Delivery Method BIPAP, Vent Mode ST, Expiratory Pressure 6, Inspiratory Pressure 20, Phlebotomy Draw Site RIGHT RADIAL 02/07/18 1040: pH 7.29 *L, pCO2 65 *H, pO2 100, HCO3 31 H, ABG O2 Sat (Measured) 97.0, Carboxyhemoglobin 0.4 L, O2 Concentration % 2, O2 Delivery Method NC, Phlebotomy Draw Site RIGHT RADIAL 02/07/18 0645: Anion Gap 9, Estimated GFR > 60, BUN/Creatinine Ratio 16.0, TSH 0.329, Free T4 0.91, CBC w Diff NO MAN DIFF REQ, RBC 3.84 L, MCV 88.8, MCH 29.6, MCHC 33.3, RDW 13.6, MPV 8.6, Gran % 71.2, Lymphocytes % 26.7, Monocytes % 1.9, Eosinophils % 0, Basophils % 0.2, Absolute Granulocytes 3.4, Absolute Lymphocytes 1.3, Absolute Monocytes 0.1, Absolute Eosinophils 0, Absolute Basophils 0 02/06/182205: Lactic Acid Cancelled 02/06/182039: pH 7.32 L, pCO2 55 H, pO2 92, HCO3 27, ABG O2 Sat (Measured) 96.0, P-50 (Temp Corrected) N, Carboxyhemoglobin 0.1 L, O2 Concentration % 2L, Temperature 97.4, O2 Delivery Method NC, Phlebotomy Draw Site RIGHT RADIAL 02/06/18 192: Urine Opiates Screen 933.00, Methadone Screen 48, Barbiturate Screen < 60, Ur Phencyclidine Scrn < 6.00, Amphetamines Screen < 100, U Benzodiazepines Scrn > 800 H, Urine Cocaine Screen < 50, Urine Cannabis Screen 6.30, Urine Color YEL, Urine Clarity CLEAR, Urine pH 6.0, Ur Specific [place] 1.010, Urine Protein NEG, Urine Ketones NEG, Urine Nitrite NEG, Urine Bilirubin NEG, Urine Urobilinogen 0.2, Ur Leukocyte Esterase NEG, Ur Microscopic EXAM NOT REQUIRED, Urine Hemoglobin NEG, Urine Glucose NEG 02/06/18 1906: Lactic Acid Cancelled Microbiology 02/07 1430 UPPER RESP: Surveillance Culture - RECD 02/07 1430 GI: Surveillance Culture - RECD 02/06 2137 URINE ROUT: Legionella Antigen - CAN Cancelled: MORE URINE NEEDED FOR TESTING 02/06 2137 URINE ROUT: Streptococcus pneumoniae Antigen (M - CAN Cancelled: MORE URINE NEEDED FOR TESTING 02/06 2137 BLOOD: Blood Culture - CAN Cancelled: Cancelled via OE: Duplicate Order 02/06 2137 BLOOD: Blood Culture - CAN Cancelled: Cancelled via OE: Duplicate Order 02/06 2002 BLOOD: Blood Culture - RES 02/06 1939 BLOOD: Blood Culture - RES 02/06 1922 URINE ROUT: Urine Culture - RES Assessment/Plan Assessment: Ms. Flynn is a 32-year-old female with PMH of PE on xarelto, polymyositis on prednisone 5 mg daily, mixed connective tissue disorder on MTX/ hydroxychloroquine, bipolar disorder on diazepam presented to ER for evaluation stating that she's had bodyaches generalized malaise, fever and chills for 1 day. During our clinical interaction, patient appeared to be very lethargic and drowsiness and was given limited history. Patient denies any cough/sick contacts/chest pain/shortness of breath, however complaining of fever Tmax 104.0 and body aches over the day, and had use Tylenol for it, and per staff note, later patient over to the PCP and was sent to the ER. Patient also stated that she had a history of DODIE, and was on home CPAP. Per nurse's note, patient went to the bathroom and that appeared to be shortness of breath on exertion, and came back was oxygen saturation of 92%. Patient also had choking events on foods/water from the past, that she attributed to her history of polymyositis, which also made her felt numb from time to time, without particular triggers. She was not sure whether she had a choking event before this admission. During our clinical interaction, patient denied dietary/appetite change. Patient denied Chest Pain/Palpitation/exercise intolerance/Abdominal pain, bowel movement/urinary abnormality, or other skin/musculoskeletal/neurological disorders. On admission, Vitals: Afebrile, BP of 100/60, stable on nasal cannula 3 L -CBC: WBC 10.5, HH stable, -BMP: CO2 32, otherwise unremarkable -UA/Microbiology:Clear, past microbio negative -CXR: Suspected areas of new consolidation in both lower lungs. -Interventions in ER: Ceftriaxone, Azithromycin, Solumedrol, TYlenol, Fluid bolus, Problem list & Assessment: #Community-acquired pneumonia VS Aspirational: Confirmed with CXR evidence, and fever at home. However no leukocytosis. Patient also had choking events on foods/water from the past, that she attributed to her history of polymyositis, which also made her felt numb from time to time, without particular triggers. She was not sure whether she had a choking event before this admission. #DODIE: Patient had BMI of over 50, and stated DODIE history on CPAP. Which could also explain her drowsiness during our clinical interaction. #PMH of PE on Xarelto, polymyositis, MCTD, anxiety: Patient's use of benzodiazepines, pain medication could contribute to her drowsiness, however urine tox was not positive except for benzodiazepine. Patient was admitted to general medicine floor for management of following conditions Hospital Course: - Transfer to ICU - Bipap for respiratory support -TRC nebulizer, supplemental O2 -Continue antibiotic treatment including clindamycin - reiceved azit and ceftriaxon in ED - consider broaden considering anti imune medication -Hold narcotics, continue rest home medication -Pending blood culture 2 DVT prophylaxis Xarelto + ALPS Regular Diet Full Code Problem List: 1. Altered mental status 2. Hypercapnia 3. Pneumonia 4. Obesity Pain Ratin Pain Location: None Pain Goal: Pain 4 or less Pain Plan: Contiue current plan Tomorrow's Labs & Rationales: ICU bundle, CBC Christian WANG,Ayesha 02/07/18 1431: Attending MD Review Statement Attending Statement Attending MD Statement: examined this patient, discuss w/resident/PA/DIRECTOR UTILIZATION MANAGEMENT, agreed w/resident/PA/DIRECTOR UTILIZATION MANAGEMENT, reviewed EMR data (avail), discussed with nursing, discussed with case mgmt, amended to note Attending Assessment/Plan: Patient seen and examined. Extremely lethargic. Arousable. When she is awake she asked to be feed. Denies chest pain. Denies shortness of breath at rest. Denies cough. She is currently maintaining saturation on 3 L of oxygen. On examination unable to assess JVD due to body habitus. Heart sounds are regular with no audible murmur. Diminished breath sounds bilaterally with no added sounds. Abdomen is obese soft and nontender. She has trace bilateral pedal edema. Problems: 1. Acute hypercapnic respiratory failure in the setting of community-acquired pneumonia, obstructive sleep apnea and likely obesity hypoventilation syndrome. 2. History of pulmonary embolism on anticoagulation 3. Polymyositis on chronic steroid therapy. 4. Metabolic encephalopathy likely combination of CO2 narcosis and her opioid analgesics. 5. Chronic pain syndrome. Plan: -Pulmonary consultation appreciated. Patient will be transferred to the intensive care unit for closer monitoring. BiPAP therapy as recommended. Follow-up ABG. -Continue current course of antibiotic therapy. If no improvement may consider expanding antibiotic coverage. -Continue anticoagulation therapy. -We will recommend holding opioid analgesia for now until mental status improves. -Keep n.p.o. in order to reduce aspiration risk. She is scheduled to undergo swallow evaluation today to rule out aspiration as a component of her symptoms. Would recommend holding that until she is more alert.
[2018-02-07 08:18] LABS: ABSOLUTE BASOPHIL COUNT 0 /CUMM (0.0-0.2); ABSOLUTE EOSINOPHIL COUNT 0 /CUMM (0.0-0.7); ABSOLUTE GRANULOCYTE CT 3.4 /CUMM (1.4-6.5); ABSOLUTE LYMPH COUNT 1.3 /CUMM (1.2-3.4); ABSOLUTE MONOCYTE COUNT 0.1 /CUMM (0.10-0.60); BASOPHIL % 0.2 % (0.0-2.0); EOSINOPHIL % 0 % (0-5); GRANULOCYTE % 71.2 % (42.2-75.2); HEMATOCRIT 34.1 % (37-47); MEAN CORPUSCULAR HGB 29.6 PG (27.0-31.0); MEAN CORPUSCULAR HGB CONC 33.3 G/DL (33.0-37.0); MEAN CORPUSCULAR VOLUME 88.8 FL (81.0-99.0); MEAN PLATELET VOLUME 8.6 FL (7.4-10.4); PLATELET COUNT 232 /CUMM (130-400); RBC DISTRIBUTION WIDTH 13.6 % (11.5-14.5); RED BLOOD CELL CT 3.84 /CUMM (4.20-5.40)
[2018-02-07 08:44] LABS: WHITE BLOOD CELL COUNT 4.8 /CUMM (4.8-10.8)
--- NOTE | 2018-02-07 13:50 | Cons- Pulmonary ---
General Information and HPI Consulting Request Date of Consult: 02/07/18 Requested By: Remington Reason for Consult: Acute on chronic hypercapnic history failure History of Present Illness: Patient is 32-year-old history PE pounds Route toe probably myositis on immunosuppression admitted with fever and cough. Chest x-ray suggests bilateral infiltrates thought to represent pneumonia for which she was started on clindamycin. Patient had diminished mental status and arterial blood gases show acute on chronic hypercapnic history failure patient is now on BiPAP the remains extremely lethargic. Allergies/Medications Allergies: Coded Allergies: Penicillins (Severe, HIVES 06/25/17) ibuprofen (Intermediate, HIVES 06/25/17) levofloxacin (Intermediate, "CAUSED MY RUPTURED TENDON" 06/25/17) Sulfa (Sulfonamide Antibiotics) ("MOM TOLD HER SHE WAS ALLERGIC" 06/25/17) metoclopramide (DYSTONIA 06/25/17) Home Med List: Albuterol Sulfate (Proair Hfa) 8.5 GM HFA.AER.AD 2 PUF INH Q4-6 PRN PRN WHEEZE Carbamazepine (Carbamazepine XR) 400 MG TAB.ER.12H 1 TAB PO BID MENTAL HEALTH (Reported) Cyanocobalamin (Vitamin B-12) 1,000 MCG TABLET 1 TAB PO DAILY low vitamin B12 Diazepam 5 MG TABLET 1 TAB PO 4XDAILY anxiety (Reported) Ergocalciferol (Vitamin D2) (Vitamin D2) 50,000 UNIT CAPSULE 1 CAP PO QTUES SUPPLEMENT (Reported) Fluoxetine HCl 20 MG CAPSULE 3 CAP PO DAILY AC depression Folic Acid 1 MG TABLET 1 TAB PO BID SUPPLEMENT (Reported) Hydroxychloroquine Sulfate 200 MG TABLET 1 TAB PO BID POLYMYSITIS (Reported) Hydroxyzine Pamoate 25 MG CAPSULE 1 CAP PO 4 TIMES/DAY ANXIETY (Reported) Levothyroxine Sodium (Synthroid) 100 MCG TABLET 1 TAB PO DAILY hypothyroidism Lidocaine HCl (Lidocaine) (Unknown Strength) OINT...G. 4 OIN TOP BID PRN PAIN (Reported) Methotrexate/Pf (Rasuvo 25 MG/0.5 Ml Autoinj) 25 MG/0.5 ML AUTO.INJCT 1 INJ INJ QMON POLYMYSITIS (Reported) Metoprolol Succinate 50 MG TAB.ER.24H 1 TAB PO QAM HEART/BP (Reported) Oxycodone HCl (Oxycontin) 60 MG TAB.ER.12H 1 TAB PO BID PAIN (Reported) Oxycodone HCl 30 MG TABLET 1 TAB PO 4XDAILY PAIN (Reported) Prednisone 10 MG TABLET 0.5 TAB PO DAILY POLYMYOSITIS (Reported) Pregabalin (Lyrica) 100 MG CAPSULE 1 CAP PO TID PAIN (Reported) Rivaroxaban (Xarelto) 20 MG TABLET 1 TAB PO QPM BLOOD THINNER (Reported) with food Trazodone HCl 100 MG TABLET 2 TAB PO QPM PRN SLEEP (Reported) Venlafaxine HCl (Venlafaxine HCl ER) 150 MG CAP.ER.24H 1 CAP PO DAILY MENTAL HEALTH (Reported) Review of Systems Review of Systems Constitutional: Reports: chills, fever. Cardiovascular: Reports: chest pain. Respiratory: Reports: cough, short of breath. Past History Travel History Traveled to [place] past 21 day No Medical History Blood Transfusion Hx: No Neurological: NONE EENT: NONE Cardiovascular: NONE Respiratory: pulmonary embolism, ASTHMA R\\T SPORTS PNA Gastrointestinal: tubular adenoma Hepatic: NONE Renal: NONE Musculoskeletal: chronic back pain, degen joint disease, fibromyalgia, osteoarthritis, MIXED CONNECTIVE TISSUE DISEASE RSD BULGING DISC TENDON TRANSFER POLYMYOCITIS CARPAL TUNNEL R WRIST FX Psychiatric: bipolar disease, depression Endocrine: vitamin D deficiency Blood Disorders: NONE Cancer(s): NONE MAC ARTIST/Reproductive: NONE Other Medical Hx: MIXED CONNECTIVE TISSUE DISORDER Surgical History Surgical History: cholecystectomy Family History Relations & Conditions If Any: Relation not specified for: FH: lung cancer FH: thyroid condition Psychosocial History Where Do You Live? Home Who Do You Live With? child Services at Home: None Smoking Status: Former Smoker Exam & Diagnostic Data Last 24 Hrs of Vital Signs/I&O Vital Signs Date Time Temp Pulse Resp B/P B/P Pulse O2 O2 Flow FiO2 Mean Ox Delivery Rate 02/07 1313 BIPAP 35% 02/07 1313 94 BIPAP 35% 02/07 1145 68 94 02/07 0801 73 115/66 02/07 0800 95 Nasal 2.0L Cannula 02/07 0630 97.7 80 20 101/65 96 Nasal 2.0L Cannula 02/07 0000 Nasal 2.0L Cannula 02/06 2234 97.4 73 20 115/66 96 Nasal 2.0L Cannula 02/06 2130 Nasal 2.0L Cannula 02/06 2105 94 Nasal 1.0L Cannula 02/06 2045 97.6 71 20 124/62 96 Nasal 2.0L Cannula 02/06 1906 97.4 96 18 92 Room Air 02/06 190 121/56 02/06 1710 98.0 02/06 1649 96 Nasal 3.0L Cannula 02/06 1611 98.0 79 16 110/51 96 Nasal 3.0L Cannula Intake & Output 02/07 1600 02/07 0800 02/07 0000 Intake Total 695 1400 Output Total Balance 695 1400 Intake, IV 575 1100 Intake, Oral 120 300 Patient 335 lb Weight Weight Reported by Patient Measurement Method Oxygen saturation FiO2 35% 94 HEENT exam shows dilated pupils there is no adenopathy exam for chest shows him and his breath sounds there are no wheezes or crackles cardiac exam shows a regular S1 and S2 abdomen is soft nontender there's minimal lower extremity edema Last 48 Hrs of Labs/Izaiah: Laboratory Tests 02/07/18 1040: pH 7.29 *L, pCO2 65 *H, pO2 100, HCO3 31 H, ABG O2 Sat (Measured) 97.0, Carboxyhemoglobin 0.4 L, O2 Concentration % 2, O2 Delivery Method NC, Phlebotomy Draw Site RIGHT RADIAL 02/07/18 0645: Anion Gap 9, Estimated GFR > 60, BUN/Creatinine Ratio 16.0, CBC w Diff NO MAN DIFF REQ, RBC 3.84 L, MCV 88.8, MCH 29.6, MCHC 33.3, RDW 13.6, MPV 8.6, Gran % 71.2, Lymphocytes % 26.7, Monocytes % 1.9, Eosinophils % 0, Basophils % 0.2, Absolute Granulocytes 3.4, Absolute Lymphocytes 1.3, Absolute Monocytes 0.1, Absolute Eosinophils 0, Absolute Basophils 0 02/06/182205: Lactic Acid Cancelled 02/06/182039: pH 7.32 L, pCO2 55 H, pO2 92, HCO3 27, ABG O2 Sat (Measured) 96.0, P-50 (Temp Corrected) N, Carboxyhemoglobin 0.1 L, O2 Concentration % 2L, Temperature 97.4, O2 Delivery Method NC, Phlebotomy Draw Site RIGHT RADIAL 02/06/181921: Urine Opiates Screen 933.00, Methadone Screen 48, Barbiturate Screen < 60, Ur Phencyclidine Scrn < 6.00, Amphetamines Screen < 100, U Benzodiazepines Scrn > 800 H, Urine Cocaine Screen < 50, Urine Cannabis Screen 6.30, Urine Color YEL, Urine Clarity CLEAR, Urine pH 6.0, Ur Specific [place] 1.010, Urine Protein NEG, Urine Ketones NEG, Urine Nitrite NEG, Urine Bilirubin NEG, Urine Urobilinogen 0.2, Ur Leukocyte Esterase NEG, Ur Microscopic EXAM NOT REQUIRED, Urine Hemoglobin NEG, Urine Glucose NEG 02/06/18 1906: Lactic Acid Cancelled 02/06/18 1645: Anion Gap 8, Estimated GFR > 60, BUN/Creatinine Ratio 13.3, Glucose 110 H, Lactic Acid 1.2, Calcium 8.6, Total Bilirubin 0.4, AST 19, ALT 19, Alkaline Phosphatase 129 H, Creatine Kinase 116, Total Protein 6.9, Albumin 3.8, Globulin 3.1, Albumin/Globulin Ratio 1.2, TSH 0.847, Total Beta HCG NEGATIVE, CBC w Diff NO MAN DIFF REQ, RBC 4.01 L, MCV 88.9, MCH 29.5, MCHC 33.2, RDW 14.0 , MPV 8.5, Gran % 72.0, Lymphocytes % 23.2, Monocytes % 3.9, Eosinophils % 0.7, Basophils % 0.2, Absolute Granulocytes 7.6 H, Absolute Lymphocytes 2.4, Absolute Monocytes 0.4, Absolute Eosinophils 0.1, Absolute Basophils 0 Microbiology 02/06 1622 NASOPHARYN: Influenza Virus A & B Rapid Smear - COMP Assessment/Plan Impression/Plan: 32-year-old with morbid obesity sleep apnea chronic hypercapnia likely secondary to obesity alveolar hypoventilation admitted with fever cough shortness of breath. She is treated for community acquired pneumonia with possible aspiration on clindamycin. She's had acute on chronic hypercapnic respiratory failure now on BiPAP though remains extremely lethargic. Concern is raised over the fact that she is immunosuppressed and antibiotic coverage should be broadened. Recommendations: In view of worsening hypercapnia and persistent lethargy would transfer to ICU for closer monitoring. Obtain noncontrast CT scan of the chest to better define the presence of pulmonary infiltrates and pneumonia. If confirmed would expand antibiotic coverage in view of her immunosuppression. Follow-up arterial blood gases on BiPAP current settings. Reassess thyroid function with history of hypothyroidism. If patient develops hemodynamic instability would require stress steroids. Mental status fails to improve consider head CT scan in view of anticoagulation Consult Acknowledgment - Thank you for your consult request.
--- NOTE | 2018-02-07 15:55 | Cons- CRCU ---
Calvin Velez 02/07/18 1525: General Information and HPI Consulting Request Date of Consult: 02/07/18 Requested By: Dr. 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 She was admitted to general medicine floor for management of bilateral lower lobe aspiration pneumonia. She was very lethargic, hypercapnic requiring noninvasive ventilation-BiPAP and she was transferred to ICU for further care on 02/07/2018. Patient came to ER for feeling very lethargic, malaise, body aches at home for 1 day. She checked her fever at home which was 104, she took Tylenol and visited primary care physician and even after 3 hours of Tylenol her temperature was 102 at the PCP office so she was sent to ER. She also endorses mild cough with substernal soreness with coughing but denies any chest pain, chest tightness, pleuritic chest pain, sputum production, dizziness, palpitations, abdominal pain , diarrhea, urinary symptoms, skin rashes. She states that she has been having difficulty swallowing since long time secondary to her mixed connective tissue disorder or polymyositis and aspirates on food many times. She may have had aspirated yesterday but she is not clear about it. Denies any nausea vomiting. She is compliant with her medications but not with her CPAP. She states that recently she attended a birthday libertarian at [employer] but other than that no sick contacts, recent travels, URI symptoms. Patient was extremely lethargic this morning. She was arousable. Denies any cough, short of breath, chest pain. She was treated for acute hypercapnic respiratory failure secondary to pneumonia, DODIE, possible OHS with clindamycin. She was moved to ICU for extreme lethargy requiring BiPAP Allergies/Medications Allergies: Coded Allergies: Penicillins (Severe, HIVES 06/25/17) ibuprofen (Intermediate, HIVES 06/25/17) levofloxacin (Intermediate, "CAUSED MY RUPTURED TENDON" 06/25/17) Sulfa (Sulfonamide Antibiotics) ("MOM TOLD HER SHE WAS ALLERGIC" 06/25/17) metoclopramide (DYSTONIA 06/25/17) Home Med List: Albuterol Sulfate (Proair Hfa) 8.5 GM HFA.AER.AD 2 PUF INH Q4-6 PRN PRN WHEEZE Carbamazepine (Carbamazepine XR) 400 MG TAB.ER.12H 1 TAB PO BID MENTAL HEALTH (Reported) Cyanocobalamin (Vitamin B-12) 1,000 MCG TABLET 1 TAB PO DAILY low vitamin B12 Diazepam 5 MG TABLET 1 TAB PO 4XDAILY anxiety (Reported) Ergocalciferol (Vitamin D2) (Vitamin D2) 50,000 UNIT CAPSULE 1 CAP PO QTUES SUPPLEMENT (Reported) Fluoxetine HCl 20 MG CAPSULE 3 CAP PO DAILY AC depression Folic Acid 1 MG TABLET 1 TAB PO BID SUPPLEMENT (Reported) Hydroxychloroquine Sulfate 200 MG TABLET 1 TAB PO BID POLYMYSITIS (Reported) Hydroxyzine Pamoate 25 MG CAPSULE 1 CAP PO 4 TIMES/DAY ANXIETY (Reported) Levothyroxine Sodium (Synthroid) 100 MCG TABLET 1 TAB PO DAILY hypothyroidism Lidocaine HCl (Lidocaine) (Unknown Strength) OINT...G. 4 OIN TOP BID PRN PAIN (Reported) Methotrexate/Pf (Rasuvo 25 MG/0.5 Ml Autoinj) 25 MG/0.5 ML AUTO.INJCT 1 INJ INJ QMON POLYMYSITIS (Reported) Metoprolol Succinate 50 MG TAB.ER.24H 1 TAB PO QAM HEART/BP (Reported) Oxycodone HCl (Oxycontin) 60 MG TAB.ER.12H 1 TAB PO BID PAIN (Reported) Oxycodone HCl 30 MG TABLET 1 TAB PO 4XDAILY PAIN (Reported) Prednisone 10 MG TABLET 0.5 TAB PO DAILY POLYMYOSITIS (Reported) Pregabalin (Lyrica) 100 MG CAPSULE 1 CAP PO TID PAIN (Reported) Rivaroxaban (Xarelto) 20 MG TABLET 1 TAB PO QPM BLOOD THINNER (Reported) with food Trazodone HCl 100 MG TABLET 2 TAB PO QPM PRN SLEEP (Reported) Venlafaxine HCl (Venlafaxine HCl ER) 150 MG CAP.ER.24H 1 CAP PO DAILY MENTAL HEALTH (Reported) Current Medications: Current Medications Sig/Paul Start time Last Medication Dose Route Stop Time Status Admin Acetaminophen 325 MG Q6 PRN 02/06 2015 AC PO Acetaminophen 0 .STK-MED ONE 02/07 1712 DC IV Acetaminophen 1,000 MG ONCE ONE 02/06 170 DC 02/06 N/A 1 UNIT IV 02/06 171 1710 Albuterol Sulfate 3 ML Q4-6 PRN PRN 02/07 1330 AC INH Albuterol Sulfate 2 PUF Q4-6 PRN PRN 02/06 2045 AC INH Azithromycin 500 MG DAILY 02/07 09 CAN Sodium Chloride 250 ML IV Azithromycin 500 MG ONCE ONE 02/06 191 DC 02/06 Sodium Chloride 250 ML IV 02/06 Carbamazepine 400 MG BID 02/06 2100 AC 02/07 PO 0801 Ceftriaxone Sodium 1,000 MG DAILY 02/07 09 CAN IV Ceftriaxone Sodium 0 .STK-MED ONE 02/06 2011 DC .ROUTE Ceftriaxone Sodium 1,000 MG ONCE ONE 02/06 1930 DC 02/06 IV 02/06 Clindamycin 600 MG IQ8 02/07 0000 AC 02/07 Dextrose/Water 50 ML IV 0759 Enoxaparin Sodium 40 MG DAILY 02/06 2001 DC SC Fluoxetine HCl 60 MG DAILY AC 02/07 07 AC 02/07 PO 0535 Hydroxychloroquine 200 MG BID 02/06 2100 AC 02/07 Sulfate PO 0802 Levothyroxine Sodium 0.1 MG DAILY 02/07 09 AC 02/07 PO 0802 Methylprednisolone 0 .STK-MED ONE 02/06 2011 DC .ROUTE Methylprednisolone 125 MG ONCE ONE 02/06 193 DC 02/06 IV 02/06 Metoprolol Succinate 50 MG QAM 02/07 09 AC 02/07 PO 0801 Oxycodone HCl 30 MG FOUR TIMES A DAY 02/06 2100 AC 02/06 PO 2352 Oxycodone HCl 60 MG BID 02/06 2100 AC 02/06 PO 2354 Prednisone 5 MG DAILY 02/07 09 AC 02/07 PO 0802 Pregabalin 100 MG TID 02/06 2100 AC 02/06 PO 2353 Rivaroxaban 20 MG 1700 02/06 2045 AC 02/06 PO 2351 Sodium Chloride 1,000 ML Q13H 02/06 2145 DC 02/06 IV 02/07 1044 2227 Sodium Chloride 1,000 ML BOLUS ONE 02/06 1645 DC 02/06 IV 02/06 1744 1649 Venlafaxine HCl 150 MG DAILY 02/07 0900 AC PO Review of Systems Review of Systems Constitutional: Reports: chills, diaphoresis, fever, malaise, weakness. Denies: see HPI, unexplained weight loss. EENTM: Denies: blurred vision, double vision, visual changes. Cardiovascular: Denies: chest pain, edema, orthopena, palpitations, peripheral edema, syncope. Respiratory: Reports: cough, short of breath, wheezing. Denies: hemoptysis, orthopnea, sputum production, stridor. GI: Denies: abdominal pain, bloating, constipation. Genitourinary: Denies: discharge, dysuria, frequency. Musculoskeletal: Denies: back pain, gout, joint pain, joint swelling. Skin: Denies: dryness, erythema. Neurological/Psychological: Reports: anxiety, depressed, emotional problems. Denies: ataxia, dementia. 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 Home Who Do You Live With? child Services at Home: None Smoking Status: Former Smoker Exam & Diagnostic Data Last 24 Hrs of Vital Signs/I&O Vital Signs Date Time Temp Pulse Resp B/P B/P Pulse O2 O2 Flow FiO2 Mean Ox Delivery Rate 02/07 1441 68 97 02/07 1313 BIPAP 35% 02/07 1313 94 BIPAP 35% 02/07 1145 68 94 02/07 0801 73 115/66 02/07 0800 95 Nasal 2.0L Cannula 02/07 0630 97.7 80 20 101/65 96 Nasal 2.0L Cannula 02/07 0000 Nasal 2.0L Cannula 02/06 2234 97.4 73 20 115/66 96 Nasal 2.0L Cannula 02/060 Nasal 2.0L Cannula 02/06 210 94 Nasal 1.0L Cannula 02/06 2045 97.6 71 20 124/62 96 Nasal 2.0L Cannula 02/06 1906 97.4 96 18 92 Room Air 02/06 1905 121/56 02/06 1710 98.0 02/06 1649 96 Nasal 3.0L Cannula 02/06 1611 98.0 79 16 110/51 96 Nasal 3.0L Cannula Intake & Output 02/07 1600 02/07 0800 02/07 0000 Intake Total 741 537 9680 Output Total Balance 852 973 7712 Intake, IV 227 252 7165 Intake, Oral 0 120 300 Number 0 Bowel Movements Patient 151.953 kg Weight Weight Reported by Patient Measurement Method Physical Exam General Appearance: well developed/nourished, no apparent distress, lethargic, mild distress Head: atraumatic, normal appearance Other Physical Findings: Skin No Rashes, No Breakdown Skin Temp/Moisture Exam: Warm/Dry Sepsis Skin Exam (color): Normal for Ethnicity HEENT Atraumatic Neck Supple, No JVD Cardiovascular Regular Rate, distant heart sound due to body weight Lungs Clear to Auscultation, Normal Air Movement Abdomen Normal Bowel Sounds, Soft Extremities No Cyanosis, No Edema, Normal Pulses Last 48 Hrs of Labs/Izaiah: Laboratory Tests 02/07/18 1410: pH 7.40, pCO2 43, pO2 98, HCO3 27, ABG O2 Sat (Measured) 97.0, P-50 (Temp Corrected) N, Carboxyhemoglobin 0.5 L, O2 Concentration % 35%, Temperature 97.7 , Respiration Rate 18, O2 Delivery Method BIPAP, Vent Mode ST, Expiratory Pressure 6, Inspiratory Pressure 20, Phlebotomy Draw Site RIGHT RADIAL 02/07/18 1040: pH 7.29 *L, pCO2 65 *H, pO2 100, HCO3 31 H, ABG O2 Sat (Measured) 97.0, Carboxyhemoglobin 0.4 L, O2 Concentration % 2, O2 Delivery Method NC, Phlebotomy Draw Site RIGHT RADIAL 02/07/18 0645: Anion Gap 9, Estimated GFR > 60, BUN/Creatinine Ratio 16.0, TSH 0.329, Free T4 0.91, CBC w Diff NO MAN DIFF REQ, RBC 3.84 L, MCV 88.8, MCH 29.6, MCHC 33.3, RDW 13.6, MPV 8.6, Gran % 71.2, Lymphocytes % 26.7, Monocytes % 1.9, Eosinophils % 0, Basophils % 0.2, Absolute Granulocytes 3.4, Absolute Lymphocytes 1.3, Absolute Monocytes 0.1, Absolute Eosinophils 0, Absolute Basophils 0 02/06/182205: Lactic Acid Cancelled 02/06/182039: pH 7.32 L, pCO2 55 H, pO2 92, HCO3 27, ABG O2 Sat (Measured) 96.0, P-50 (Temp Corrected) N, Carboxyhemoglobin 0.1 L, O2 Concentration % 2L, Temperature 97.4, O2 Delivery Method NC, Phlebotomy Draw Site RIGHT RADIAL 02/06/18 1922: Urine Opiates Screen 933.00, Methadone Screen 48, Barbiturate Screen < 60, Ur Phencyclidine Scrn < 6.00, Amphetamines Screen < 100, U Benzodiazepines Scrn > 800 H, Urine Cocaine Screen < 50, Urine Cannabis Screen 6.30, Urine Color YEL, Urine Clarity CLEAR, Urine pH 6.0, Ur Specific [place] 1.010, Urine Protein NEG, Urine Ketones NEG, Urine Nitrite NEG, Urine Bilirubin NEG, Urine Urobilinogen 0.2, Ur Leukocyte Esterase NEG, Ur Microscopic EXAM NOT REQUIRED, Urine Hemoglobin NEG, Urine Glucose NEG 02/06/18 1906: Lactic Acid Cancelled 02/06/18 1645: Anion Gap 8, Estimated GFR > 60, BUN/Creatinine Ratio 13.3, Glucose 110 H, Lactic Acid 1.2, Calcium 8.6, Total Bilirubin 0.4, AST 19, ALT 19, Alkaline Phosphatase 129 H, Creatine Kinase 116, Total Protein 6.9, Albumin 3.8, Globulin 3.1, Albumin/Globulin Ratio 1.2, TSH 0.847, Total Beta HCG NEGATIVE, CBC w Diff NO MAN DIFF REQ, RBC 4.01 L, MCV 88.9, MCH 29.5, MCHC 33.2, RDW 14.0 , MPV 8.5, Gran % 72.0, Lymphocytes % 23.2, Monocytes % 3.9, Eosinophils % 0.7, Basophils % 0.2, Absolute Granulocytes 7.6 H, Absolute Lymphocytes 2.4, Absolute Monocytes 0.4, Absolute Eosinophils 0.1, Absolute Basophils 0 Microbiology 02/06 1622 NASOPHARYN: Influenza Virus A & B Rapid Smear - COMP Assessment/Plan CRCU Impression/Plan: This is a 32-year-old female with past medical history significant for asthma, COPD, anxiety, bipolar disorder, depression, 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 She was admitted to general medicine floor for management of bilateral lower lobe aspiration pneumonia. She was very lethargic, hypercapnic requiring noninvasive ventilation-BiPAP and she was transferred to ICU for further care on 02/07/2018. Vitals: T max 98.0, pulse 69, RR 16, blood pressure 110/51, saturating 96% on 3l Labs no white count, no bandemia,, WBC 10.5, hemoglobin 11, hematocrit 35, platelets 258 sodium 135, carbon dioxide 32, alkaline phosphatase 129. U tox positive for benzos. UA unimpressive AB.32/55/92 Chest x-ray shows new consolidation in both lower lobes. ----- 1. Acute hypercapnic respiratory failure in the setting of aspiration pneumonia versus community-acquired pneumonia Patient presented with fever, body aches, cough, lethargy. She states that she has been having difficulty swallowing since long time secondary to her mixed connective tissue disorder or polymyositis and aspirates on food many times. She was hypoxic requiring 2 L oxygen supplementation. She was also found hypercapnic, pH 7.29, carbon dioxide 65, bicarbonate 31. Acute hypercapnic respiratory failure most likely from aspiration pneumonia. Patient also has history of obstructive sleep apnea, noncompliant with the CPAP. She is morbidly obese, most possibly has obesity hypoventilation syndrome contribution to hypercapnia. * Extreme lethargy from carbon dioxide retention. Acute hypercapnic respiratory failure-possible differentials community acquired pneumonia versus aspiration pneumonia. Other possibilities obstructive sleep apnea, obesity hypoventilation syndrome. Patient also takes benzodiazepines and opiates U tox positive for benzos. Possibility for opiate-induced respiratory failure * ICU transfer for close monitoring * Patient was placed on BiPAP with settings 20,6,18. * Repeat ABG showed improvement of carbon dioxide. 7.40, 43, 27 * Will continue BiPAP for now * Monitor vitals closely every shift * CAT scan of chest showed multifocal Airspace opacities within right upper lobe , bilateral lower lobes, concerning for multifocal pneumonia * Patient was started on ceftaz 1000 milligrams every 12 * Continue clindamycin * Follow-up blood cultures, sputum cultures * ABG if lethargy worsens * CAT scan head if patient mentation worsens * Keep n.p.o. in order to reduce aspiration risk. She is scheduled to undergo swallow evaluation today to rule out aspiration as a component of her symptoms. Would recommend holding that until she is more alert. * holding opioid analgesia for now until mental status improves. Asthma-continue TRC nebs, albuterol treatments Depression, bipolar disorder continue carbamazepine, venlafaxine, fluxetine Anxiety hold diazepam for now given her lethargy Polymyositis continue prednisone 5 mg and hydroxychloroquine Hypothyroidism continue levothyroxine 100 g Hypertension continue metoprolol 50 daily Pulmonary embolism continued Xarelto home medication Chronic back pain please hold oxycodone and Lyrica for now given her lethargy DVT prophylaxis alps, on Xarelto Full code Pain pathway Tylenol, Toradol Nothing by mouth pending swallow evaluation Consult Acknowledgment - Thank you for your consult request. James Kolb MD 02/08/18 1331: Assessment/Plan CRCU Other Findings/Comments: pt seen in consultation by Dr. Patel 02/07/18 Consult Acknowledgment - Thank you for your consult request.
[2018-02-07 16:00] VITALS: BP 110/60
--- NOTE | 2018-02-07 17:52 | CT SCAN REPORT ---
EXAMINATION: CT CHEST WITHOUT CONTRAST CLINICAL INFORMATION: Shortness of breath. COMPARISON: Chest x-ray 02/06/2018. TECHNIQUE: Multidetector volumetric CT imaging of the chest was done. Axial MIP volume rendering provided. Sagittal and coronal reformatted images were obtained. FINDINGS: There is patchy airspace disease within the posterior aspect of the right upper lobe, the superior segment of the right lower lobe, and at the right and left lung base posteriorly that is most concerning for multifocal pneumonia. There is no pleural effusion or pneumothorax. The thoracic aorta is normal in caliber. The heart is normal in size without evidence of a pericardial effusion. There is no mediastinal, hilar, or axillary adenopathy. No significant soft tissue findings within the chest. The gallbladder is surgically absent. No acute osseous abnormalities. Small chronic inferior endplate Schmorl's node at T11. IMPRESSION: Multifocal airspace opacities within the right upper lobe and the lower lobes bilaterally, most concerning for multifocal pneumonia. Radiographic follow-up recommended to document resolution and exclude alternative etiologies.
[2018-02-08] VITALS: BP 118/70
[2018-02-08 05:20] LABS: ABSOLUTE BASOPHIL COUNT 0 /CUMM (0.0-0.2); ABSOLUTE EOSINOPHIL COUNT 0.1 /CUMM (0.0-0.7); ABSOLUTE GRANULOCYTE CT 3.3 /CUMM (1.4-6.5); ABSOLUTE LYMPH COUNT 2.4 /CUMM (1.2-3.4); ABSOLUTE MONOCYTE COUNT 0.3 /CUMM (0.10-0.60); BASOPHIL % 0.4 % (0.0-2.0); EOSINOPHIL % 1.3 % (0-5); GRANULOCYTE % 54.8 % (42.2-75.2); HEMATOCRIT 31.7 % (37-47); MEAN CORPUSCULAR HGB 29.2 PG (27.0-31.0); MEAN CORPUSCULAR HGB CONC 33.2 G/DL (33.0-37.0); MEAN CORPUSCULAR VOLUME 88.2 FL (81.0-99.0); MEAN PLATELET VOLUME 8.6 FL (7.4-10.4); PLATELET COUNT 236 /CUMM (130-400); WHITE BLOOD CELL COUNT 6.1 /CUMM (4.8-10.8)
--- NOTE | 2018-02-08 07:15 | PN- CRCU ---
Nidia Delgado 02/08/18 0715: Subjective HPI/Critical Care Issues: 1acute hypoxemic hypercarbic respiratory failure in setting of aspiration pneumonia/community acquired pneumonia/obesity related hypoventilation syndrome 2. Asthma 3. History of depression/bipolar disorder/anxiety 4. 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 History of hypothyroidism 6. History of hypertension History of pulmonary embolism on anticoagulation History of fibromyalgia and chronic back pain on chronic opioid therapy 24 hour events She was seen and examined this morning. She was sitting on her bed but complaining of severe back pain due to her position while she was trying to have her breakfast. She is currently on 1 L nasal cannula oxygen and saturating fine. She remained hemodynamically stable. Remained afebrile with MAXIMUM TEMPERATURE of 99.4, blood pressure ranges from 110-138/60-78. Objective Current Medications: Current Medications Sig/Paul Start time Last Medication Dose Route Stop Time Status Admin Acetaminophen 325 MG Q6 PRN 02/06 2015 AC PO Albuterol Sulfate 3 ML Q4-6 PRN PRN 02/07 1330 AC INH Albuterol Sulfate 2 PUF Q4-6 PRN PRN 02/06 2045 AC INH Carbamazepine 400 MG BID 02/06 2100 AC 02/08 PO 0825 Ceftazidime 1,000 MG Q12H 02/07 1900 AC 02/08 IV 0600 Clindamycin 600 MG IQ8 02/07 0000 AC 02/08 Dextrose/Water 50 ML IV 826 Diclofenac Sodium 1 ARIA 4 TIMES/DAY 02/08 900 AC TOP Diclofenac Sodium 25 MG ONCE ONE 02/08 0845 DC PO 02/08 0846 Fluoxetine HCl 60 MG DAILY AC 02/07 07 AC 02/08 PO 0601 Hydroxychloroquine 200 MG BID 02/06 2100 AC 02/08 Sulfate PO 0825 Levothyroxine Sodium 0.1 MG DAILY 02/07 09 AC 02/08 PO 0825 Metoprolol Succinate 50 MG QAM 02/07 09 AC 02/08 PO 0825 Oxycodone HCl 30 MG FOUR TIMES A DAY 02/06 2100 AC 02/06 PO 2352 Oxycodone HCl 60 MG BID 02/06 PO 0901 Potassium Chloride 10 MEQ ONCE ONE 02/08 0915 DC PO 02/08 0916 Prednisone 5 MG DAILY 02/07 09 AC 02/08 PO 0825 Pregabalin 100 MG TID 02/06 2100 AC 02/08 PO 0900 Rivaroxaban 20 MG 2300 02/07 2300 AC 02/07 PO 2108 Rivaroxaban 20 MG 1700 02/06 2045 DC 02/06 PO 2351 Sodium Chloride 1,000 ML Q13H 02/06 2145 DC 02/06 IV 02/07 1044 2227 Venlafaxine HCl 150 MG DAILY 02/07 0900 AC 02/08 PO 0825 Vital Signs & I&O Last 24 Hrs of Vitals and I&O: Vital Signs Date Time Temp Pulse Resp B/P B/P Pulse O2 O2 Flow FiO2 Mean Ox Delivery Rate 02/08 0825 72 138/78 02/08 0800 96 Nasal 1.0L Cannula 02/08 0800 97.8 70 2 124/70 94 Nasal 1.0L Cannula 02/08 0400 93 Nasal 1.0L Cannula 02/08 0000 93 Nasal 1.0L Cannula 02/08 0000 99.4 80 20 118/70 93 Nasal 1.0L Cannula 02/07 2115 95 Nasal 1.0L Cannula 02/07 2000 94 Nasal 1.0L Cannula 02/07 1621 70 96 02/07 1600 96 BIPAP 35% 02/07 1600 97.6 66 18 110/60 98 BIPAP 35% 02/07 1441 68 97 02/07 1313 BIPAP 35% 02/07 1313 94 BIPAP 35% 02/07 1145 68 94 Intake & Output 02/08 1600 02/08 0800 02/08 0000 Intake Total 310 1012 Output Total 250 Balance 310 762 Intake, IV 70 532 Intake, Oral 240 480 Output, Urine 250 Exam General Appearance: no apparent distress, alert, awake Head: atraumatic Neck: normal inspection, supple Respiratory: normal breath sounds, chest non-tender, no respiratory distress Cardiovascular: regular rate/rhythm, edema Abdomen: soft, non-tender Extremities: normal inspection Results Last 24 Hrs of Lab Results: Laboratory Tests 02/08/18 0346: Anion Gap 8, Estimated GFR > 60, Glucose 93, Calcium 8.4, Phosphorus 3.6, Magnesium 2.1, Total Bilirubin 0.3, AST 15, ALT 18, Albumin 3.4 L, CBC w Diff NO MAN DIFF REQ, RBC 3.60 L, MCV 88.2, MCH 29.2, MCHC 33.2, RDW 14.0, MPV 8.6, Gran % 54.8, Lymphocytes % 39.3, Monocytes % 4.2, Eosinophils % 1.3, Basophils % 0.4, Absolute Granulocytes 3.3, Absolute Lymphocytes 2.4, Absolute Monocytes 0.3 , Absolute Eosinophils 0.1, Absolute Basophils 0 02/07/18 1410: pH 7.40, pCO2 43, pO2 98, HCO3 27, ABG O2 Sat (Measured) 97.0, P-50 (Temp Corrected) N, Carboxyhemoglobin 0.5 L, O2 Concentration % 35%, Temperature 97.7 , Respiration Rate 18, O2 Delivery Method BIPAP, Vent Mode ST, Expiratory Pressure 6, Inspiratory Pressure 20, Phlebotomy Draw Site RIGHT RADIAL 02/07/18 1040: pH 7.29 *L, pCO2 65 *H, pO2 100, HCO3 31 H, ABG O2 Sat (Measured) 97.0, Carboxyhemoglobin 0.4 L, O2 Concentration % 2, O2 Delivery Method NC, Phlebotomy Draw Site RIGHT RADIAL Impression/Plan Impression/Plan Impression/Plan: This is a 32-year-old female with past medical history significant for asthma, COPD, anxiety, bipolar disorder, depression, 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 She was admitted to general medicine floor for management of bilateral lower lobe aspiration pneumonia. She was very lethargic, hypercapnic requiring noninvasive ventilation-BiPAP and she was transferred to ICU for further care on 02/07/2018. 1. Acute hypercapnic respiratory failure in the setting of aspiration pneumonia versus community-acquired pneumonia Patient presented with fever, body aches, cough, lethargy. She states that she has been having difficulty swallowing since long time secondary to her mixed connective tissue disorder or polymyositis and aspirates on food many times. She was hypoxic requiring 2 L oxygen supplementation. She was also found hypercapnic, pH 7.29, carbon dioxide 65, bicarbonate 31. Acute hypercapnic respiratory failure most likely from aspiration pneumonia. Patient also has history of obstructive sleep apnea, noncompliant with the CPAP. She is morbidly obese, most possibly has obesity hypoventilation syndrome contribution to hypercapnia. close monitoring * CT chest Yesterday showed multifocal pneumonia. Patient was initially placed on clindamycin and ceftazidime was added to broaden her coverage. She is allergic to penicillin, levofloxacin and sulfa drugs. * She remained stable overnight, afebrile and requiring 1 L of oxygen through nasal cannula. Clinically she doesn't look particularly ill, she passed her swallow evaluation without any difficulty or evidence of aspiration and at this point we would treat her for community-acquired pneumonia with ceftriaxone and azithromycin. We will watch her closely but if she get worse at any point we might consider changing her antibiotic for anaerobe coverage as aspiration pneumonia would still be in our differentials. Asthma-continue TRC nebs, albuterol treatments Depression, bipolar disorder continue carbamazepine, venlafaxine, fluxetine Anxiety hold diazepam for now given her lethargy Polymyositis continue prednisone 5 mg and hydroxychloroquine Hypothyroidism continue levothyroxine 100 g Hypertension continue metoprolol 50 daily Pulmonary embolism continued Xarelto home medication Chronic back pain please hold oxycodone and Lyrica for now given her lethargy James Kolb MD 02/08/18 1332: Impression/Plan Impression/Plan Recommendations: James Recinos M.D. have examined this patient, reviewed available EMR data, personally reviewed images, discussed with resident/PA/TRANSPORTATION MAINTENANCE OPERATOR, discussed management plan with housestaff and nursing staff, discussed managment plan all of healthcare providers, discussed management plan with patient and/or family, agreed with resident/PA/TRANSPORTATION MAINTENANCE OPERATOR. The past history and parts of the chart have been autopopulated. Impression 32-year-old woman * Pneumonia likely community-acquired, aspiration remains in the differential however no obvious aspiration events and no issues with swallowing * DODIE/OHS declines to use her treatment at home * Connective tissue disease * Chronic pain Plan -accepts bipap nocturnal for now -also accepts to resume her DODIE therapy at home, advised to follow with a sleep specialist that initiated therapy upon discharge -ceftriaxone/zithromax are acceptable for now -sputum cx if feasible -pain control - hold for excessive sedation -downgrade to gen med TTS 35 min
[2018-02-08 08:00] VITALS: BP 124/70
[2018-02-08 14:41] VITALS: BP 130/84
[2018-02-08 21:44] VITALS: BP 118/80
[2018-02-09 06:04] VITALS: BP 124/70
--- NOTE | 2018-02-09 08:57 | PN- Housestaff ---
See Addendum Subjective Follow-up For: Acute hypercapnic respiratory failure with community-acquired pneumonia, complex regional pain syndrome Subjective: No overnight events. Patient reports pain in her upper right extremity and lower back but her breathing is good. She has no chest pain. She has no abdominal pain, nausea, vomiting, diarrhea. No other issues. Review of Systems Constitutional: Reports: no symptoms. EENTM: Reports: no symptoms. Cardiovascular: Reports: no symptoms. Respiratory: Reports: no symptoms. Gastrointestinal: Reports: no symptoms. Genitourinary: Reports: no symptoms. Musculoskeletal: Reports: see HPI. Skin: Reports: no symptoms. Neurological/Psychological: Reports: no symptoms. Hematologic/Endocrine: Reports: no symptoms. Immunologic/Allergic: Reports: no symptoms. Objective Last 24 Hrs of Vital Signs/I&O Vital Signs Date Time Temp Pulse Resp B/P B/P Pulse O2 O2 Flow FiO2 Mean Ox Delivery Rate 02/09 0800 94 Nasal 1.0L Cannula 02/09 0753 69 124/70 02/09 0604 97.6 69 20 124/70 94 02/09 0000 Nasal 1.0L Cannula 02/08 2236 67 98 02/08 2230 94 Nasal 1.0L Cannula 02/08 2144 97.7 74 19 118/80 96 Nasal 1.0L Cannula 02/08 1600 Nasal 1.0L Cannula 02/08 1441 98.0 75 20 130/84 93 Nasal 1.0L Cannula 02/08 1259 95 Nasal 1.0L Cannula Intake & Output 02/09 1600 02/09 0800 02/09 0000 Intake Total 340 320 Output Total Balance 340 320 Intake, Oral 340 320 Physical Exam General Appearance: Alert, Oriented X3, Cooperative, No Acute Distress Cardiovascular: Regular Rate, Normal S1, No Murmurs Lungs: Clear to Auscultation, Normal Air Movement Abdomen: Normal Bowel Sounds, Soft, No Tenderness Extremities: No Edema, Normal Pulses, tednerness to RUE Current Medications: Current Medications Sig/Paul Start time Last Medication Dose Route Stop Time Status Admin Acetaminophen 325 MG Q6 PRN 02/06 2015 AC PO Albuterol Sulfate 3 ML Q4-6 PRN PRN 02/07 1330 AC INH Albuterol Sulfate 2 PUF Q4-6 PRN PRN 02/06 2045 AC INH Azithromycin 500 MG Q24H 02/08 1000 AC 02/08 Sodium Chloride 250 ML IV 1217 Carbamazepine 400 MG BID 02/06 2100 AC 02/09 PO 0753 Ceftazidime 1,000 MG Q12H 02/07 1900 DC 02/08 IV 0600 Ceftriaxone Sodium 1,000 MG Q24H 02/08 1000 AC 02/08 IV 1120 Clindamycin 600 MG IQ8 02/07 0000 DC 02/08 Dextrose/Water 50 ML IV 0827 Diclofenac Sodium 1 ARIA 4 TIMES/DAY 02/08 0900 AC 02/08 TOP 1657 Fluoxetine HCl 60 MG DAILY AC 02/07 0700 AC 02/09 PO 0753 Hydroxychloroquine 200 MG BID 02/06 2100 AC 02/09 Sulfate PO 0753 Levothyroxine Sodium 0.1 MG DAILY 02/07 0900 AC 02/09 PO 0753 Metoprolol Succinate 50 MG QAM 02/07 0900 AC 02/09 PO 0753 Oxycodone HCl 15 MG Q8 02/09 1400 AC PO Oxycodone HCl 30 MG FOUR TIMES A DAY 02/06 2100 DC 02/06 PO 2352 Oxycodone HCl 60 MG BID 02/06 2100 AC 02/09 PO 0753 Potassium Chloride 10 MEQ ONCE ONE 02/08 0915 DC 02/08 PO 02/08 0916 1119 Prednisone 5 MG DAILY 02/07 0900 AC 02/09 PO 0753 Pregabalin 100 MG TID 02/06 2100 AC 02/09 PO 0753 Rivaroxaban 20 MG 2300 02/07 2300 AC 02/08 PO 2302 Venlafaxine HCl 150 MG DAILY 02/07 0900 AC 02/09 PO 0753 Last 24 Hrs of Lab/Izaiah Results Last 24 Hrs of Labs/Mics: Microbiology 02/08 921 LOWER RESP: Respiratory Culture - COLB 02/08 921 LOWER RESP: Gram Stain - COLB Assessment/Plan Assessment: his is a 32-year-old female with past medical history significant for asthma, COPD, anxiety, bipolar disorder, depression, 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 She was admitted to general medicine floor for management of bilateral lower lobe aspiration pneumonia. She was very lethargic, hypercapnic requiring noninvasive ventilation-BiPAP and she was transferred to ICU for further care on 02/07/2018. 1. Acute hypercapnic respiratory failure in the setting of aspiration pneumonia versus community-acquired pneumonia Patient presented with fever, body aches, cough, lethargy. She states that she has been having difficulty swallowing since long time secondary to her mixed connective tissue disorder or polymyositis and aspirates on food many times. She was hypoxic requiring 2 L oxygen supplementation. She was also found hypercapnic, pH 7.29, carbon dioxide 65, bicarbonate 31. Acute hypercapnic respiratory failure most likely from aspiration pneumonia. Patient also has history of obstructive sleep apnea, noncompliant with the CPAP. She is morbidly obese, most possibly has obesity hypoventilation syndrome contribution to hypercapnia. CT chest showed multifocal pneumonia. Patient was initially placed on clindamycin and ceftazidime was added to broaden her coverage. She is allergic to penicillin, levofloxacin and sulfa drugs. She was downgraded to general medicine yesterday and her breathing has improved. We will continue ceftriaxone and azithromycin and appreciate pulmonology recommendations. Complex regional pain syndromecontinue pain management Asthma-continue TRC nebs, albuterol treatments Depression, bipolar disorder continue carbamazepine, venlafaxine, fluxetine Anxiety hold diazepam for now given her lethargy Polymyositis continue prednisone 5 mg and hydroxychloroquine Hypothyroidism continue levothyroxine 100 g Hypertension continue metoprolol 50 daily Pulmonary embolism continued Xarelto home medication Problem List: 1. Pneumonia Pain Ratin Pain Location: leg Pain Goal: Remain pain free Pain Plan: see a/p Tomorrow's Labs & Rationales: cbc, bep
[2018-02-09 10:42] LABS: ABSOLUTE BASOPHIL COUNT 0 /CUMM (0.0-0.2); ABSOLUTE EOSINOPHIL COUNT 0.1 /CUMM (0.0-0.7); ABSOLUTE GRANULOCYTE CT 2.3 /CUMM (1.4-6.5); ABSOLUTE LYMPH COUNT 2.9 /CUMM (1.2-3.4); ABSOLUTE MONOCYTE COUNT 0.2 /CUMM (0.10-0.60); BASOPHIL % 0.5 % (0.0-2.0); EOSINOPHIL % 2.4 % (0-5); GRANULOCYTE % 41.7 % (42.2-75.2); HEMATOCRIT 33.5 % (37-47); MEAN CORPUSCULAR HGB 29.6 PG (27.0-31.0); MEAN CORPUSCULAR VOLUME 89.6 FL (81.0-99.0); MEAN PLATELET VOLUME 8.4 FL (7.4-10.4); PLATELET COUNT 248 /CUMM (130-400); RBC DISTRIBUTION WIDTH 14.1 % (11.5-14.5); RED BLOOD CELL CT 3.75 /CUMM (4.20-5.40); WHITE BLOOD CELL COUNT 5.6 /CUMM (4.8-10.8)
[2018-02-09 14:57] VITALS: BP 120/76
[2018-02-09 21:20] VITALS: BP 159/106
[2018-02-09 23:30] VITALS: BP 150/80
[2018-02-10 04:17] VITALS: BP 156/72
--- NOTE | 2018-02-10 09:21 | PN- Housestaff ---
Ariella Patricia MD,[facility] 02/10/18 0921: Subjective Follow-up For: Pneumonia AMS Subjective: Patient visited today, was lying in bed comfortably in no acute distress, was drowsy, arousable and oriented. No fever or chills, improved shortness of breathing, no chest pain, no other events. Patient requested for increased pain medication. pain meds and diazpam were resumed after disscussing with pulm specialist. Review of Systems Constitutional: Reports: see HPI. Objective Last 24 Hrs of Vital Signs/I&O Vital Signs Date Time Temp Pulse Resp B/P B/P Pulse O2 O2 Flow FiO2 Mean Ox Delivery Rate 02/10 0800 95 Nasal 1.0L Cannula 02/10 0753 61 156/72 02/10 0443 95 Room Air Room Air 02/10 0417 61 20 156/72 96 02/10 0343 67 92 02/10 0058 78 94 02/10 0040 92 02/09 2330 150/80 02/09 2120 97.9 76 18 159/106 92 Room Air 02/09 1600 93 Nasal 1.0L Cannula 02/09 1457 97.7 70 20 120/76 93 Room Air Intake & Output 02/10 1600 02/10 0800 02/10 0000 Intake Total 240 240 Output Total Balance 240 240 Intake, Oral 240 240 Physical Exam General Appearance: Oriented X3, No Acute Distress (drowsy arousable, obese) Skin Temp/Moisture Exam: Warm/Dry HEENT: Atraumatic Cardiovascular: Normal S1, Normal S2 Lungs: decreased breathing sounds bilaterally Abdomen: Soft, No Tenderness Neurological: Normal Speech Extremities: No Clubbing Current Medications: Current Medications Sig/Paul Start time Last Medication Dose Route Stop Time Status Admin Acetaminophen 1,000 MG Q8P PRN 02/09 1030 AC 02/09 PO 1529 Albuterol Sulfate 3 ML Q4-6 PRN PRN 02/07 1330 AC 02/10 INH 0437 Albuterol Sulfate 2 PUF Q4-6 PRN PRN 02/06 2045 AC INH Azithromycin 500 MG Q24H 02/08 1000 AC 02/10 Sodium Chloride 250 ML IV 0956 Carbamazepine 400 MG BID 02/06 2100 AC 02/10 PO 0753 Ceftriaxone Sodium 1,000 MG Q24H 02/08 1000 AC 02/10 IV 0956 Diazepam 5 MG 4 TIMES/DAY 02/10 1300 AC 02/10 PO 1259 Diclofenac Sodium 1 ARIA 4 TIMES/DAY 02/08 0900 AC 02/08 TOP 1657 Fluoxetine HCl 60 MG DAILY AC 02/07 0700 AC 02/10 PO 0753 Hydroxychloroquine 200 MG BID 02/06 2100 AC 02/10 Sulfate PO 0753 Ketorolac 15 MG ONCE ONE 02/09 1745 DC 02/09 Tromethamine IV 02/09 1746 1745 Ketorolac 30 MG .STK-MED ONE 02/09 1743 DC Tromethamine IM 02/09 1744 Levothyroxine Sodium 0.1 MG DAILY 02/07 0900 AC 02/10 PO 0753 Melatonin 3 MG .STK-MED ONE 02/10 0002 DC PO 02/10 0003 Melatonin 3 MG ONCE ONE 02/09 2330 DC 02/10 PO 02/09 2331 0003 Metoprolol Succinate 50 MG QAM 02/07 0900 AC 02/10 PO 0753 Ondansetron HCl 4 MG ONCE ONE 02/09 2315 DC 02/09 PO 02/09 2316 2323 Oxycodone HCl 30 MG Q4P PRN 02/10 1135 AC 02/10 PO 1205 Oxycodone HCl 30 MG .STK-MED ONE 02/10 0001 DC PO 02/10 0002 Oxycodone HCl 30 MG ONCE ONE 02/09 2355 DC 02/10 PO 02/09 2356 0006 Oxycodone HCl 30 MG Q6 PRN 02/09 1030 DC 02/10 PO 1007 Oxycodone HCl 60 MG BID 02/06 2100 AC 02/10 PO 0752 Polyethylene Glycol 17 GM DAILY 02/09 0915 AC PO Prednisone 5 MG DAILY 02/07 0900 AC 02/10 PO 0753 Pregabalin 100 MG TID 02/06 2100 AC 02/10 PO 0752 Rivaroxaban 20 MG 2300 02/07 2300 AC 02/09 PO 2132 Venlafaxine HCl 150 MG DAILY 02/07 0900 AC 02/10 PO 0753 Last 24 Hrs of Lab/Izaiah Results Last 24 Hrs of Labs/Mics: Laboratory Tests 02/10/18 0410: Troponin I < 0.01 Assessment/Plan Assessment: Ms. Flynn is a 32-year-old female with PMH of PE on xarelto, polymyositis on prednisone 5 mg daily, mixed connective tissue disorder on MTX/ hydroxychloroquine, bipolar disorder on diazepam presented to ER for evaluation stating that she's had bodyaches generalized malaise, fever and chills for 1 day. During our clinical interaction, patient appeared to be very lethargic and drowsiness and was given limited history. Patient denies any cough/sick contacts/chest pain/shortness of breath, however complaining of fever Tmax 104.0 and body aches over the day, and had use Tylenol for it, and per staff note, later patient over to the PCP and was sent to the ER. Patient also stated that she had a history of DODIE, and was on home CPAP. Per nurse's note, patient went to the bathroom and that appeared to be shortness of breath on exertion, and came back was oxygen saturation of 92%. Patient also had choking events on foods/water from the past, that she attributed to her history of polymyositis, which also made her felt numb from time to time, without particular triggers. She was not sure whether she had a choking event before this admission. During our clinical interaction, patient denied dietary/appetite change. Patient denied Chest Pain/Palpitation/exercise intolerance/Abdominal pain, bowel movement/urinary abnormality, or other skin/musculoskeletal/neurological disorders. On admission, Vitals: Afebrile, BP of 100/60, stable on nasal cannula 3 L -CBC: WBC 10.5, HH stable, -BMP: CO2 32, otherwise unremarkable -UA/Microbiology:Clear, past microbio negative -CXR: Suspected areas of new consolidation in both lower lungs. -Interventions in ER: Ceftriaxone, Azithromycin, Solumedrol, TYlenol, Fluid bolus, management were done as follow: Acute hypercapnic respiratory failure in the setting of aspiration pneumonia versus community-acquired pneumonia/ DODIE * CT ches showed multifocal pneumonia. Patient was initially placed on clindamycin and ceftazidime was added to broaden her coverage. She is allergic to penicillin, levofloxacin and sulfa drugs. * Condition improved * BIPAP overnight * Ceft and azithromycin were started after verbal communication with ID per ICU team Asthma-continue TRC nebs, albuterol treatments Depression, bipolar disorder continue carbamazepine, venlafaxine, fluxetine Anxiety resumed diazepam Polymyositis continue prednisone 5 mg and hydroxychloroquine Hypothyroidism continue levothyroxine 100 g Hypertension continue metoprolol 50 daily Pulmonary embolism continued Xarelto home medication Chronic back pain please hold oxycodone and Lyrica for now given her lethargy DVT prophylaxis Xarelto + ALPS Regular Diet Full Code Problem List: 1. Obesity 2. Altered mental status 3. Hypercapnia 4. Pneumonia Pain Ratin Pain Location: generalized Pain Goal: Pain 4 or less Pain Plan: resumed home dose of oxycodone resumed diazepam Tomorrow's Labs & Rationales: CBC BEP James Kolb MD 02/10/18 1337: Attending MD Review Statement Attending Statement Attending MD Statement: examined this patient, discuss w/resident/PA/ASH CONVEYOR OPERATOR, agreed w/resident/PA/ASH CONVEYOR OPERATOR, discussed with family, reviewed EMR data (avail), discussed with nursing, discussed with case mgmt, reviewed images, amended to note Attending Assessment/Plan: James Recinos M.D. have examined this patient, reviewed available EMR data, personally reviewed images, discussed with resident/PA/ASH CONVEYOR OPERATOR, discussed management plan with housestaff and nursing staff, discussed managment plan all of healthcare providers, discussed management plan with patient and/or family, agreed with resident/PA/ASH CONVEYOR OPERATOR. The past history and parts of the chart have been autopopulated. Impression 32-year-old woman * Pneumonia likely community-acquired, aspiration remains in the differential however no obvious aspiration events and no issues with swallowing * DODIE/OHS declines to use her treatment at home * Connective tissue disease/polymyositis * Chronic pain * Hx of PE on Xarelto Plan -autopap nocturnal -on an outpatient basis - resume her DODIE therapy at home, advised to follow with a sleep specialist that initiated therapy upon discharge -ceftriaxone/zithromax to continue for now -sputum cx if feasible -pain control - hold for excessive sedation -TRC/Nebs -prednisone 5mg for polymyositis -continue Xarelto DVT prophylaxis at all times Confirmed home dose of pain meds are q4h to be restarted 1 dose of diazepam (takes at home) will be given as well
[2018-02-10 22:00] VITALS: BP 120/56
[2018-02-11 06:10] VITALS: BP 137/83
--- NOTE | 2018-02-11 07:10 | PN- Housestaff ---
Ariella Patricia MD,Ami 02/11/18 0710: Subjective Follow-up For: Pneumonia AMS Respiratory failure Subjective: Patient visited today, was lying in bed comfortably in no acute distress, was drowsy, arousable and oriented. no change compared to yesterday No fever or chills, improved shortness of breathing, no chest pain, no other events. cardiac chest pain was ruled out. Patient stable to discharge on home o2. Review of Systems Constitutional: Reports: see HPI. Objective Last 24 Hrs of Vital Signs/I&O Vital Signs Date Time Temp Pulse Resp B/P B/P Pulse O2 O2 Flow FiO2 Mean Ox Delivery Rate 02/11 1431 98.0 76 20 136/77 95 Nasal 1.0L Cannula 02/11 1342 96 Nasal 1.0L Cannula 02/11 0935 78 132/80 02/11 09 22 93 Nasal 1.0L Cannula 02/11 09 22 87 Room Air 02/11 0923 22 94 Room Air 02/11 09 22 95 Nasal 1.0L Cannula 02/11 0900 95 Nasal 1.0L Cannula 02/11 0610 97.8 69 20 137/83 95 02/11 0030 77 93 02/11 0000 Nasal 1.0L Cannula 02/10 2200 98.0 78 18 120/56 92 Room Air 02/10 1600 Nasal 1.0L Cannula Intake & Output 02/11 1600 02/11 0800 02/11 0000 Intake Total 720 250 Output Total Balance 720 250 Intake, IV 0 10 Intake, Oral 720 240 Number 1 0 Bowel Movements Physical Exam General Appearance: Oriented X3, Cooperative, No Acute Distress Sepsis Skin Exam (color): Normal for Ethnicity HEENT: Atraumatic, EOMI Cardiovascular: Regular Rate, Normal S1, Normal S2 Lungs: improved air ventilation Abdomen: Soft, No Tenderness Current Medications: Current Medications Sig/Paul Start time Last Medication Dose Route Stop Time Status Admin Acetaminophen 1,000 MG Q8P PRN 02/09 1030 AC 02/09 PO 1529 Albuterol Sulfate 3 ML Q4-6 PRN PRN 02/07 1330 AC 02/10 INH 0437 Albuterol Sulfate 2 PUF Q4-6 PRN PRN 02/06 2045 AC INH Azithromycin 500 MG Q24H 02/08 1000 DC 02/10 Sodium Chloride 250 ML IV 0956 Carbamazepine 400 MG BID 02/06 2100 AC 02/11 PO 0935 Ceftriaxone Sodium 1,000 MG Q24H 02/08 1000 DC 02/10 IV 0956 Diazepam 5 MG DAILY 02/11 0900 AC 02/11 PO 0945 Diazepam 5 MG ONCE ONE 02/11 0145 DC 02/11 PO 02/11 0146 0224 Diazepam 5 MG 4 TIMES/DAY 02/10 1300 DC 02/10 PO 1259 Diclofenac Sodium 1 ARIA 4 TIMES/DAY 02/08 0900 DC 02/08 TOP 1657 Fluoxetine HCl 60 MG DAILY AC 02/07 0700 AC 02/11 PO 0553 Hydroxychloroquine 200 MG BID 02/06 2100 AC 02/11 Sulfate PO 0935 Levothyroxine Sodium 0.1 MG 0600 02/12 0600 AC PO Levothyroxine Sodium 0.1 MG DAILY 02/07 0900 DC 02/11 PO 0804 Loperamide HCl 2 MG ONE ONE 02/10 2330 DC 02/11 PO 02/10 2331 0036 Melatonin 5 MG AT BEDTIME 02/11 2100 AC PO Melatonin 5 MG ONCE ONE 02/11 0400 DC 02/11 PO 02/11 0401 0414 Metoprolol Succinate 50 MG QAM 02/07 09 AC 02/11 PO 0935 Oxycodone HCl 30 MG Q4P PRN 02/10 1135 AC 02/11 PO 1503 Oxycodone HCl 60 MG BID 02/06 2100 AC 02/11 PO 0935 Patient Medication 1 ED ONE ONE 02/11 1500 DC 02/11 Teaching ED 02/11 1501 1502 Polyethylene Glycol 17 GM DAILY 02/09 0915 AC PO Prednisone 5 MG DAILY 02/07 0900 AC 02/11 PO 0935 Pregabalin 100 MG TID 02/06 2100 AC 02/11 PO 1503 Rivaroxaban 20 MG 2300 02/07 2300 AC 02/10 PO 2239 Venlafaxine HCl 150 MG DAILY 02/07 0900 AC 02/11 PO 0935 Last 24 Hrs of Lab/Izaiah Results Last 24 Hrs of Labs/Mics: Laboratory Tests 02/11/18 0555: Anion Gap 8, Estimated GFR > 60, BUN/Creatinine Ratio 16.7, CBC w Diff NO MAN DIFF REQ, RBC 3.58 L, MCV 88.4, MCH 30.3, MCHC 34.2, RDW 13.3, MPV 8.4, Gran % 46.4, Lymphocytes % 47.4, Monocytes % 3.8, Eosinophils % 1.9, Basophils % 0.5, Absolute Granulocytes 2.6, Absolute Lymphocytes 2.7, Absolute Monocytes 0.2, Absolute Eosinophils 0.1, Absolute Basophils 0, Carbamazepine 7.5 Assessment/Plan Assessment: Ms. Flynn is a 32-year-old female with PMH of PE on xarelto, polymyositis on prednisone 5 mg daily, mixed connective tissue disorder on MTX/ hydroxychloroquine, bipolar disorder on diazepam presented to ER for evaluation stating that she's had bodyaches generalized malaise, fever and chills for 1 day. During our clinical interaction, patient appeared to be very lethargic and drowsiness and was given limited history. Patient denies any cough/sick contacts/chest pain/shortness of breath, however complaining of fever Tmax 104.0 and body aches over the day, and had use Tylenol for it, and per staff note, later patient over to the PCP and was sent to the ER. Patient also stated that she had a history of DODIE, and was on home CPAP. Per nurse's note, patient went to the bathroom and that appeared to be shortness of breath on exertion, and came back was oxygen saturation of 92%. Patient also had choking events on foods/water from the past, that she attributed to her history of polymyositis, which also made her felt numb from time to time, without particular triggers. She was not sure whether she had a choking event before this admission. During our clinical interaction, patient denied dietary/appetite change. Patient denied Chest Pain/Palpitation/exercise intolerance/Abdominal pain, bowel movement/urinary abnormality, or other skin/musculoskeletal/neurological disorders. On admission, Vitals: Afebrile, BP of 100/60, stable on nasal cannula 3 L -CBC: WBC 10.5, HH stable, -BMP: CO2 32, otherwise unremarkable -UA/Microbiology:Clear, past microbio negative -CXR: Suspected areas of new consolidation in both lower lungs. -Interventions in ER: Ceftriaxone, Azithromycin, Solumedrol, TYlenol, Fluid bolus, management were done as follow: Acute hypercapnic respiratory failure in the setting of aspiration pneumonia versus community-acquired pneumonia/ DODIE * CT ches showed multifocal pneumonia. Patient was initially placed on clindamycin and ceftazidime was added to broaden her coverage. She is allergic to penicillin, levofloxacin and sulfa drugs. * Condition improved * BIPAP/CPAP overnight * Ceft and azithromycin were started after verbal communication with ID per ICU team Compelted 5 days, will discontinue today * patient stable to be discharge tomorrow * try to wean off oxygen tonight Asthma-continue TRC nebs, albuterol treatments Depression, bipolar disorder continue carbamazepine, venlafaxine, fluxetine Dose adjusted per psych consutl Anxiety resumed diazepam Polymyositis continue prednisone 5 mg and hydroxychloroquine Hypothyroidism continue levothyroxine 100 g Hypertension continue metoprolol 50 daily Pulmonary embolism continued Xarelto home medication Chronic back pain please hold oxycodone and Lyrica for now given her lethargy DVT prophylaxis Xarelto + ALPS Regular Diet Full Code Problem List: 1. Pneumonia 2. Altered mental status Pain Ratin Pain Location: generalized Pain Goal: Pain 4 or less Pain Plan: adjusted home medication per psych Tomorrow's Labs & Rationales: None Ayesha Gonzales MD 02/11/18 1609: Attending MD Review Statement Attending Statement Attending MD Statement: examined this patient, discuss w/resident/PA/[employer]MI[employer], agreed w/resident/PA/[employer]MI[employer]GAN[employer], reviewed EMR data (avail), discussed with nursing, discussed with case mgmt, amended to note Attending Assessment/Plan: Patient seen and examined. Lying comfortably in bed not in acute distress. Drowsy but arousable. She still requiring oxygen supplementation. She has been weaned down to 1 L of oxygen. On examination lungs are clear to auscultation bilaterally. We will continue to taper down oxygen supplementation. Hopefully she can be discharged tomorrow off oxygen supplementation. She was seen by the psychiatry service today. Will follow recommendations regarding medication therapy upon discharge.
[2018-02-11 08:18] LABS: ABSOLUTE BASOPHIL COUNT 0 /CUMM (0.0-0.2); ABSOLUTE EOSINOPHIL COUNT 0.1 /CUMM (0.0-0.7); ABSOLUTE GRANULOCYTE CT 2.6 /CUMM (1.4-6.5); ABSOLUTE LYMPH COUNT 2.7 /CUMM (1.2-3.4); ABSOLUTE MONOCYTE COUNT 0.2 /CUMM (0.10-0.60); BASOPHIL % 0.5 % (0.0-2.0); EOSINOPHIL % 1.9 % (0-5); GRANULOCYTE % 46.4 % (42.2-75.2); HEMATOCRIT 31.6 % (37-47); MEAN CORPUSCULAR HGB 30.3 PG (27.0-31.0); MEAN CORPUSCULAR HGB CONC 34.2 G/DL (33.0-37.0); MEAN CORPUSCULAR VOLUME 88.4 FL (81.0-99.0); MEAN PLATELET VOLUME 8.4 FL (7.4-10.4); PLATELET COUNT 255 /CUMM (130-400); RBC DISTRIBUTION WIDTH 13.3 % (11.5-14.5); RED BLOOD CELL CT 3.58 /CUMM (4.20-5.40); WHITE BLOOD CELL COUNT 5.6 /CUMM (4.8-10.8)
--- NOTE | 2018-02-11 08:35 | PN- Pulmonary ---
Subjective HPI/Critical Care Issues: Patient awake alert complaining of pain remains on low-flow oxygen Objective Current Medications: Current Medications Sig/Paul Start time Last Medication Dose Route Stop Time Status Admin Acetaminophen 1,000 MG Q8P PRN 02/09 1030 AC 02/09 PO 1529 Albuterol Sulfate 3 ML Q4-6 PRN PRN 02/07 1330 AC 02/10 INH 0437 Albuterol Sulfate 2 PUF Q4-6 PRN PRN 02/06 2045 AC INH Azithromycin 500 MG Q24H 02/08 1000 DC 02/10 Sodium Chloride 250 ML IV 0956 Carbamazepine 400 MG BID 02/06 2100 AC 02/10 PO 2018 Ceftriaxone Sodium 1,000 MG Q24H 02/08 1000 DC 02/10 IV 0956 Diazepam 5 MG DAILY 02/11 09 AC PO Diazepam 5 MG ONCE ONE 02/11 0145 DC 02/11 PO 02/11 0146 0224 Diazepam 5 MG 4 TIMES/DAY 02/10 1300 DC 02/10 PO 1259 Diclofenac Sodium 1 ARIA 4 TIMES/DAY 02/08 0900 DC 02/08 TOP 1657 Fluoxetine HCl 60 MG DAILY AC 02/07 0700 AC 02/11 PO 0553 Hydroxychloroquine 200 MG BID 02/06 2100 AC 02/10 Sulfate PO 2018 Levothyroxine Sodium 0.1 MG 0600 02/12 0600 AC PO Levothyroxine Sodium 0.1 MG DAILY 02/07 0900 DC 02/11 PO 0804 Loperamide HCl 2 MG ONE ONE 02/10 2330 DC 02/11 PO 02/10 2331 0036 Melatonin 5 MG ONCE ONE 02/11 0400 DC 02/11 PO 02/11 0401 0414 Metoprolol Succinate 50 MG QAM 02/07 0900 AC 02/10 PO 0753 Oxycodone HCl 30 MG Q4P PRN 02/10 1135 AC 02/11 PO 0629 Oxycodone HCl 30 MG Q6 PRN 02/09 1030 DC 02/10 PO 1007 Oxycodone HCl 60 MG BID 02/06 2100 AC 02/10 PO 2020 Polyethylene Glycol 17 GM DAILY 02/09 0915 AC PO Prednisone 5 MG DAILY 02/07 0900 AC 02/10 PO 0753 Pregabalin 100 MG TID 02/06 2100 AC 02/10 PO 2018 Rivaroxaban 20 MG 2300 02/07 2300 AC 02/10 PO 2239 Venlafaxine HCl 150 MG DAILY 02/07 0900 AC 02/10 PO 0753 Vital Signs & I&O Last 24 Hrs of Vitals and I&O: Vital Signs Date Time Temp Pulse Resp B/P B/P Pulse O2 O2 Flow FiO2 Mean Ox Delivery Rate 02/11 0610 97.8 69 20 137/83 95 02/11 0030 77 93 02/11 0000 Nasal 1.0L Cannula 02/100 98.0 78 18 120/56 92 Room Air 02/10 1600 Nasal 1.0L Cannula Intake & Output 02/11 1600 02/11 0800 02/11 0000 Intake Total 720 250 Output Total Balance 720 250 Intake, IV 0 10 Intake, Oral 720 240 Number 1 0 Bowel Movements Oxygen saturation 1 L 95% exam for chest shows diminished breath sounds there are no wheezes or crackles cardiac exam shows regular S1 and S2 without murmurs Impression/Plan Impression/Plan Impression/Plan: 42-year-old admitted with acute on chronic hypercapnic history failure improved with community acquired pneumonia Recommendations: Patient should resume CPAP for sleep apnea complete course of antibiotics Taper FiO2 his saturations allow
--- NOTE | 2018-02-11 09:04 | Patient Discharge Instructions ---
Discharge Instructions General Discharge Information You were seen/treated for: Pneumonia Adjustment of pain medications Watch for these problems: severe drowsiness, confusion, cough, sputum, fever or worsening of any other symptoms Special Instructions: Please follow with your PCP, psychiatrist and sales and training specialist. Please follow with sleep study center regarding sleep study. Please check your oxygen level regularly and use o2 supplement as needed. Diet Continue normal diet: No Recommended Diet: Regular Activity Full Activity/No Limits: No Activity Self Limited: Yes Acute Coronary Syndrome Inclusion Criteria At DC or during hospital stay patient has or had the following: ACS DIAGNOSIS No Discharge Core Measures Meds if any: Prescribed or Continued at Discharge Meds if any: NOT Prescribed or Continued at Discharge Congestive Heart Failure Inclusion Criteria At DC or during hospital stay patient has or had the following: CHF DIAGNOSIS No Discharge Core Measures Meds if any: Prescribed or Continued at Discharge Meds if any: NOT Prescribed or Continued at Discharge Cerebrovascular accident Inclusion Criteria At DC or during hospital stay patient has or had the following: CVA/TIA Diagnosis No Discharge Core Measures Meds if any: Prescribed or Continued at Discharge Meds if any: NOT Prescribed or Continued at Discharge Venous thromboembolism Inclusion Criteria VTE Diagnosis No VTE Type NONE VTE Confirmed by (Test) NONE Discharge Core Measures - Per Current guidelines, there needs to be overlap - treatment for the first 5 days of Warfarin therapy. - If discharged on Warfarin prior to 5 days of - overlap therapy, the patient will need to be - assessed for post discharge needs including - *Post discharge parental anticoagulation - *Warfarin and/or parental anticoagulation education - *Follow up date to check INR post discharge At least 5 days overlap therapy as Inpatient No Meds if any: Prescribed or Continued at Discharge Note: Overlap Therapy is Warfarin and Anticoagulant Meds if any: NOT Prescribed or Continued at Discharge
--- NOTE | 2018-02-11 11:38 | Cons- Psychiatry ---
Psychiatric Consult Date of Consult: 02/11/18 Reason for Consult: "anxiety, bipolar?" History of Present Illness: Ms. Flynn is a 32-year-old female with PMH of PE on xarelto, polymyositis on prednisone 5 mg daily, mixed connective tissue disorder on MTX/ hydroxychloroquine, bipolar disorder on diazepam presented to ER 02/06/18 @ 1611 , sent in by her PCP, for evaluation reporting bodyaches generalized malaise, fever 104.0 and chills for 1 day. Allergies: Coded Allergies: Penicillins (Severe, HIVES 06/25/17) ibuprofen (Intermediate, HIVES 06/25/17) levofloxacin (Intermediate, "CAUSED MY RUPTURED TENDON" 06/25/17) Sulfa (Sulfonamide Antibiotics) ("MOM TOLD HER SHE WAS ALLERGIC" 06/25/17) metoclopramide (DYSTONIA 06/25/17) Current Medications: Current Medications Sig/Paul Start time Last Medication Dose Route Stop Time Status Admin Acetaminophen 1,000 MG Q8P PRN 02/09 1030 AC 02/09 PO 1529 Albuterol Sulfate 3 ML Q4-6 PRN PRN 02/07 1330 AC 02/10 INH 0437 Albuterol Sulfate 2 PUF Q4-6 PRN PRN 02/06 2045 AC INH Azithromycin 500 MG Q24H 02/08 1000 DC 02/10 Sodium Chloride 250 ML IV 0956 Carbamazepine 400 MG BID 02/06 2100 AC 02/11 PO 0935 Ceftriaxone Sodium 1,000 MG Q24H 02/08 1000 DC 02/10 IV 0956 Diazepam 5 MG DAILY 02/11 0900 AC 02/11 PO 0945 Diazepam 5 MG ONCE ONE 02/11 0145 DC 02/11 PO 02/11 0146 0224 Diazepam 5 MG 4 TIMES/DAY 02/10 1300 DC 02/10 PO 1259 Diclofenac Sodium 1 ARIA 4 TIMES/DAY 02/08 0900 DC 02/08 TOP 1657 Fluoxetine HCl 60 MG DAILY AC 02/07 0700 AC 02/11 PO 0553 Hydroxychloroquine 200 MG BID 02/06 2100 AC 02/11 Sulfate PO 0935 Levothyroxine Sodium 0.1 MG 0600 02/12 0600 AC PO Levothyroxine Sodium 0.1 MG DAILY 02/07 0900 DC 02/11 PO 0804 Loperamide HCl 2 MG ONE ONE 02/10 2330 DC 02/11 PO 02/10 2331 0036 Melatonin 5 MG AT BEDTIME 02/11 2100 AC PO Melatonin 5 MG ONCE ONE 02/11 0400 DC 02/11 PO 02/11 0401 0414 Metoprolol Succinate 50 MG QAM 02/07 0900 AC 02/11 PO 0935 Oxycodone HCl 30 MG Q4P PRN 02/10 1135 AC 02/11 PO 1041 Oxycodone HCl 30 MG Q6 PRN 02/09 1030 DC 02/10 PO 1007 Oxycodone HCl 60 MG BID 02/06 2100 AC 02/11 PO 0935 Polyethylene Glycol 17 GM DAILY 02/09 0915 AC PO Prednisone 5 MG DAILY 02/07 09 AC 02/11 PO 0935 Pregabalin 100 MG TID 02/06 2100 AC 02/11 PO 0935 Rivaroxaban 20 MG 2300 02/07 2300 AC 02/10 PO 2239 Venlafaxine HCl 150 MG DAILY 02/07 09 AC 02/11 PO 0935 Past History Past Medical History Neurological: NONE EENT: NONE Cardiovascular: NONE Respiratory: pulmonary embolism, ASTHMA R\\T SPORTS PNA Gastrointestinal: tubular adenoma Hepatic: NONE Renal: NONE Musculoskeletal: chronic back pain, degen joint disease, fibromyalgia, osteoarthritis, MIXED CONNECTIVE TISSUE DISEASE RSD BULGING DISC TENDON TRANSFER POLYMYOCITIS CARPAL TUNNEL R WRIST FX Psychiatric: bipolar disease, depression, insomnia Endocrine: vitamin D deficiency Blood Disorders: NONE Cancer(s): NONE ASSOCIATE 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 Psychiatric Treatment History Psych Treatment Psychiatric Treatment Yes Inpatient Treatment Yes Outpatient Treatment Yes Location of Treatment [facility], inpt and outpt Reason for Treatment Passive SI in the context of DCF removal of daughter from home and placement with aunt in [place], [place]. Dates of Treatment 01/11/18-01/18/18, inpatient [facility]. Currently in IOP Response to Treatment Improved Diagnosis: Bipolar D/O Opioid Dependance D/O Borderline Personality Disorder Risk Factors: chronic/serious med cond., high anxiety/distress, SA/MH hospitalized, substance abuse, isolate/no social support, poor impulse control, lives alone, limited support Substance Use/Abuse History Drug Use/Abuse Substances Used/Abused Yes (Dr. Smith wants to decrease) Substance Used/Abused Prescribed Opiates First Use Not evaluated Last Used currently prescribed How much used/taken See med reconciliation How often Pt reports as prescribed For how long assisted Route of use PO Substance Abuse Treatment Substance Abuse Treatment Past Substance Abuse TX No Assessment/Plan Mental Status Orientation: Person, Place, Situation Affect: Depressed Speech: Soft Neuro-vegetative: Sleep Disturbance Mental Status Exam: The patient is lying calmly in bed, nasal cannula in place, no apparent distress. She is alert and oriented. She denies current visual or auditory hallucinations, and presents no jaky delusions. She denies SI, HI and denies a history of suicide attempt. She endorses a little hopelessness, a little helplessness, denies worthlessness, denies feelings of guilt. Denies alcohol or drug use. She denies current racing thoughts. Her bipolar d/o usually presents in a depressed state, but when she is manic, she reports that she talks a lot, and spends a lot of money she does not have. She reports she was at a healthy weight until age 20. She has gained 100 lbs in the last year, and is currently gathering clearances for bariatric surgery from her providers. She will require [facility] psychiatry as an outpatient. Lab Results: Laboratory Tests 02/11 0555 Chemistry Sodium (137 - 145 mmol/L) 138 Potassium (3.5 - 5.1 mmol/L) 4.1 Chloride (98 - 107 mmol/L) 98 Carbon Dioxide (22 - 30 mmol/L) 32 H Anion Gap (5 - 16) 8 BUN (7 - 17 mg/dL) 10 Creatinine (0.5 - 1.0 mg/dL) 0.6 Estimated GFR (>60 ml/min) > 60 BUN/Creatinine Ratio (7 - 25 %) 16.7 Hematology CBC w Diff NO MAN DIFF REQ WBC (4.8 - 10.8 /CUMM) 5.6 RBC (4.20 - 5.40 /CUMM) 3.58 L Hgb (12.0 - 16.0 G/DL) 10.8 L Hct (37 - 47 %) 31.6 L MCV (81.0 - 99.0 FL) 88.4 MCH (27.0 - 31.0 PG) 30.3 MCHC (33.0 - 37.0 G/DL) 34.2 RDW (11.5 - 14.5 %) 13.3 Plt Count (130 - 400 /CUMM) 255 MPV (7.4 - 10.4 FL) 8.4 Gran % (42.2 - 75.2 %) 46.4 Lymphocytes % (20.5 - 51.1 %) 47.4 Monocytes % (1.7 - 9.3 %) 3.8 Eosinophils % (0 - 5 %) 1.9 Basophils % (0.0 - 2.0 %) 0.5 Absolute Granulocytes (1.4 - 6.5 /CUMM) 2.6 Absolute Lymphocytes (1.2 - 3.4 /CUMM) 2.7 Absolute Monocytes (0.10 - 0.60 /CUMM) 0.2 Absolute Eosinophils (0.0 - 0.7 /CUMM) 0.1 Absolute Basophils (0.0 - 0.2 /CUMM) 0 Toxicology Carbamazepine (4.0 - 12.0 ug/mL) 7.5 Diffential Diagnosis: Bipolar D/O Opioid Dependance D/O Borderline Personality Disorder Impression: The patient is currently treated in [facility], who expect her to return as soon as she can after she is discharged. She had been admitted to [facility] 01/11/18 for passive SI related to her daughter being placed with her sister by [facility]. She states that her breathing feels normal to her, meaning it is how she feels at home, unable to take a full breath. She is happy that she is not wheezing today. She is followed by Dr. Tyrell Albert for pulmonology. Current psychotropic medications, per the [facility] [employer] ASSEM[employer] note of 02/04/18 are: Fluoxetine 60 mg PO daily AM Venlafaxine ER 150 mg PO daily AM, refilled 02/04/18 for #14/no refill, by our [employer] Trazodone 100 mg X 2 tablets (200 mg) PO at bedtime, as needed, for insomnia, refilled 02/04/18 for #28/no refill, by our [employer] Additionally, on 01/22/18, she was prescribed diazepam 5 mg #120/0 one tablet PO qAM, one tablet PO qNoon, two tablets PO qHS, by Zoran Salamanca, . She has been on this medication for at least a year, per [place] [employer]. The patient reports that she has not missed any doses of carbamazapine. Trough level today at 0555 was 7.5 (4.0-12.0) The prior report of visual hallucinations in the form of "light flashes coming from all angles," was likley the result of change in oxygenation and possibly poor sleep. Provisional Treatment Plan: 1. Advance as tolerated in the setting of admission for acute on chronic hypercapnic respiratory failure, improved with community acquired pneumonia, diazepam 5 mg PO up to 3X/day, as needed, for anxiety, insomnia. 2. Continue fluoxetine 60 mg PO daily 3. Continue carbamazapine 400 mg PO 2X/day 4. Continue venlafaxine ER 150 mg PO daily 5. Please ask case management to inquire about home services, to assist with ADLs. The patient's 8 y.o. daughter, Isatu, had been helping her, but is now placed by [facility] with the child's father. 6. Return to [facility] upon discharge, , unless the patient is able and willing to enter a residential program. We will continue to follow along. Thank you for this consult Creatinine (0.5 - 1.0 mg/dL) 0.6 Estimated GFR (>60 ml/min) > 60 BUN/Creatinine Ratio (7 - 25 %) 16.7 Hematology CBC w Diff NO MAN DIFF REQ WBC (4.8 - 10.8 /CUMM) 5.6 RBC (4.20 - 5.40 /CUMM) 3.58 L Hgb (12.0 - 16.0 G/DL) 10.8 L Hct (37 - 47 %) 31.6 L MCV (81.0 - 99.0 FL) 88.4 MCH (27.0 - 31.0 PG) 30.3 MCHC (33.0 - 37.0 G/DL) 34.2 RDW (11.5 - 14.5 %) 13.3 Plt Count (130 - 400 /CUMM) 255 MPV (7.4 - 10.4 FL) 8.4 Gran % (42.2 - 75.2 %) 46.4 Lymphocytes % (20.5 - 51.1 %) 47.4 Monocytes % (1.7 - 9.3 %) 3.8 Eosinophils % (0 - 5 %) 1.9 Basophils % (0.0 - 2.0 %) 0.5 Absolute Granulocytes (1.4 - 6.5 /CUMM) 2.6 Absolute Lymphocytes (1.2 - 3.4 /CUMM) 2.7 Absolute Monocytes (0.10 - 0.60 /CUMM) 0.2 Absolute Eosinophils (0.0 - 0.7 /CUMM) 0.1 Absolute Basophils (0.0 - 0.2 /CUMM) 0 Toxicology Carbamazepine (4.0 - 12.0 ug/mL) 7.5 Diffential Diagnosis: Bipolar D/O Opioid Dependance D/O Borderline Personality Disorder Impression: The patient is currently treated in [facility], who expect her to return as soon as she can after she is discharged. She had been admitted to [facility] 01/11/18 for passive SI related to her daughter being placed with her sister by [facility]. She states that her breathing feels normal to her, meaning it is how she feels at home, unable to take a full breath. She is happy that she is not wheezing today. She is followed by Dr. Tyrell Albert for pulmonology. Current psychotropic medications, per the [facility] [employer] note of 02/04/18 are: Fluoxetine 60 mg PO daily AM Venlafaxine ER 150 mg PO daily AM, refilled 02/04/18 for #14/no refill, by our [employer] Trazodone 100 mg X 2 tablets (200 mg) PO at bedtime, as needed, for insomnia, refilled 02/04/18 for #28/no refill, by our [employer] Additionally, on 01/22/18, she was prescribed diazepam 5 mg #120/0 one tablet PO qAM, one tablet PO qNoon, two tablets PO qHS, by Zoran Salamanca, . She has been on this medication for at least a year, per [place] [employer]. The patient reports that she has not missed any doses of carbamazapine. Trough level today at 0555 was 7.5 (4.0-12.0) The prior report of visual hallucinations in the form of "light flashes coming from all angles," was likley the result of change in oxygenation and possibly poor sleep. Provisional Treatment Plan: 1. Advance as tolerated in the setting of admission for acute on chronic hypercapnic respiratory failure, improved with community acquired pneumonia, diazepam 5 mg PO up to 3X/day, as needed, for anxiety, insomnia. 2. Continue fluoxetine 60 mg PO daily 3. Continue carbamazapine 400 mg PO 2X/day 4. Continue venlafaxine ER 150 mg PO daily 5. Please ask case management to inquire about home services, to assist with ADLs. The patient's 8 y.o. daughter, Isatu, had been helping her, but is now placed by [facility] with the child's father. 6. Return to [facility] upon discharge, , unless the patient is able and willing to enter a residential program. We will continue to follow along. Thank you for this consult
[2018-02-11 14:31] VITALS: BP 136/77
--- NOTE | 2018-02-11 14:44 | Discharge Summary ---
Visit Information Visit Dates Admission Date: 02/06/18 Discharge Date: 02/12/18 Hospital Course Course Attending Physician: Ayesha Gonzales MD Primary Care Physician: Chel WANG,Yury [facility] Course: Ms. Flynn is a 32-year-old female with PMH of PE on xarelto, polymyositis on prednisone 5 mg daily, mixed connective tissue disorder on MTX/ hydroxychloroquine, bipolar disorder on diazepam presented to ER for evaluation stating that she's had bodyaches generalized malaise, fever and chills for 1 day. During our clinical interaction, patient appeared to be very lethargic. Patient also had choking events on foods/water from the past, that she attributed to her history of polymyositis, which also made her felt numb from time to time, without particular triggers. Swallow evluation was done and patient was cleard on regular diet. On admission, Vitals: Afebrile, BP of 100/60, stable on nasal cannula 3 L -CBC: WBC 10.5, HH stable, -BMP: CO2 32, otherwise unremarkable -UA/Microbiology:Clear, past microbio negative -CXR: Suspected areas of new consolidation in both lower lungs. -Interventions in ER: Ceftriaxone, Azithromycin, Solumedrol, TYlenol, Fluid bolus, management were done as follow: Acute hypercapnic respiratory failure in the setting of pneumonia/ Obesity related hypoventilation/ DODIE/altered mental status due to narcotics,BDZ CT ches showed multifocal pneumonia. Patient was initially placed on clindamycin and ceftazidime was added to broaden her coverage. She was allergic to penicillin, levofloxacin and sulfa drugs. Patient continued to be drowsy and hypercapnic and it was decided to transfer to ICU. BIPAP/CPAP were provided. ID was consulted, recommended Ceft and azithromycin, the 5 day course was administered and completed. Patient continued to need o2 supplement due to obesity hypoventilation and DODIE. Patient stable to be discharged today with o2 supplement to home. Recommendations were made to continue to use CPAP and follow with mine wirer. Chronic medical conditions: Asthma-we continued TRC nebs, albuterol treatments Depression, bipolar disorder, insomnia, anxiety continue carbamazepine, venlafaxine, fluxetine, Dose adjusted per psych consutl Polymyositis continue prednisone 5 mg and hydroxychloroquine Hypothyroidism continue levothyroxine 100 g Hypertension continue metoprolol 50 daily Pulmonary embolism continued Xarelto home medication Chronic back pain please hold oxycodone and Lyrica for now given her lethargy Morbid obesity: respiratory support, consult regarding complications. Patient was discharged with recommendations below. Allergies: Coded Allergies: Penicillins (Severe, HIVES 06/25/17) ibuprofen (Intermediate, HIVES 06/25/17) levofloxacin (Intermediate, "CAUSED MY RUPTURED TENDON" 06/25/17) Sulfa (Sulfonamide Antibiotics) ("MOM TOLD HER SHE WAS ALLERGIC" 06/25/17) metoclopramide (DYSTONIA 06/25/17) Significant Procedures: NONE Disposition Summary Disposition Principal Diagnosis: Acute hypercapnic respiratory failure. Obstructive sleep apnea. Aspiration pneumonia. Additional Diagnosis: Obesity. Bipolar disorder. Discharge Disposition: home health services Discharge Instructions General Discharge Information Code Status: Full Code Patient's Diet: Regular Patient's Activity: As tolerated Follow-Up Instructions/Appts: Please follow with your PCP, psychiatrist and mine wirer. Please follow with sleep study center regarding sleep study. Please check your oxygen level regularly and use o2 supplement as needed. Medications at Discharge Discharge Medications: Continue taking these medications: Prednisone (Prednisone) 10 MG TABLET 0.5 Tablet ORAL DAILY Comments: Last Taken: 02/12/18 Time: 0900AM Hydroxychloroquine Sulfate (Hydroxychloroquine Sulfate) 200 MG TABLET 1 Tablet ORAL TWICE DAILY Comments: Last Taken: 02/12/18 Time: 0900am Oxycodone HCl (Oxycontin) 60 MG TAB.ER.12H 1 Tablet ORAL TWICE DAILY Comments: Last Taken: 02/12/18 Time: 0900AM Folic Acid (Folic Acid) 1 MG TABLET 1 Tablet ORAL TWICE DAILY Comments: NOT GIVEN IN HOSPITAL Rivaroxaban (Xarelto) 20 MG TABLET 1 Tablet ORAL Every night Instructions: with food Comments: Last Taken: 02/11/18 Time: 2300PM Ergocalciferol (Vitamin D2) (Vitamin D2) 50,000 UNIT CAPSULE 1 Capsule ORAL EVERY SUNDAY Comments: NOT GIVEN IN HOSPITAL Oxycodone HCl (Oxycodone HCl) 30 MG TABLET 1 Tablet ORAL 4XDAILY Comments: Last Taken: 02/12/18 Time: 0900AM Pregabalin (Lyrica) 100 MG CAPSULE 1 Capsule ORAL THREE TIMES DAILY Comments: Last Taken: 02/12/18 Time: 0900AM Albuterol Sulfate (Proair Hfa) 8.5 GM HFA.AER.AD 2 Puff Inhale through mouth EVERY 4-6 HOURS NEEDED as needed for WHEEZE Qty = 1 Comments: NOT USED IN HOSPITAL Metoprolol Succinate (Metoprolol Succinate) 50 MG TAB.ER.24H 1 Tablet ORAL Every Morning Qty = 90 Comments: Last Taken: 02/12/18 Time: 0900am Hydroxyzine Pamoate (Hydroxyzine Pamoate) 25 MG CAPSULE 1 Capsule ORAL 4 TIMES A DAY Qty = 120 Comments: NOT GIVEN IN HOSPITAL Diazepam (Diazepam) 5 MG TABLET 1 Tablet ORAL THREE TIMES DAILY as needed for anxiety, insomina Qty = 120 Comments: Last Taken: 02/12/18 Time: 0900AM Carbamazepine (Carbamazepine XR) 400 MG TAB.ER.12H 1 Tablet ORAL TWICE DAILY Qty = 60 Comments: Last Taken: 02/12/18 Time: 0900AM Methotrexate/Pf (Rasuvo 25 MG/0.5 Ml Autoinj) 25 MG/0.5 ML AUTO.INJCT 1 Inj INJECTABLE EVERY SUNDAY Qty = 2 Comments: NOT GIVEN IN HOSPITAL Lidocaine HCl (Lidocaine) (Unknown Strength) OINT...G. 4 Ointment On the skin TWICE DAILY as needed for PAIN Comments: NOT GIVEN IN HOSPITAL Venlafaxine HCl (Venlafaxine HCl ER) 150 MG CAP.ER.24H 1 Capsule ORAL DAILY Qty = 30 Comments: Last Taken: 02/12/18 Time: 0900AM Fluoxetine HCl (Fluoxetine HCl) 20 MG CAPSULE 3 Capsule ORAL DAILY BEFORE BREAKFAST Qty = 42 Comments: Last Taken: 02/12/18 Time:0600am Levothyroxine Sodium (Synthroid) 100 MCG TABLET 1 Tablet ORAL DAILY Qty = 14 Comments: Last Taken: 02/12/18 Time: 0600am Cyanocobalamin (Vitamin B-12) 1,000 MCG TABLET 1 Tablet ORAL DAILY Qty = 14 Comments: NOT GIVEN IN HOSPITAL Trazodone HCl (Trazodone HCl) 100 MG TABLET 2 Tablet ORAL Every night as needed for SLEEP Comments: NOT GIVEN IN HOSPITAL Copies To: Jorge WANG,Tyrell Ndiaye; Chel WANG,Yury Garcia MD Review Statement Documenting Attending: Ayesha Gonzales MD Other Findings: Medically stable to be discharged home.
[2018-02-11 21:17] VITALS: BP 140/77
[2018-02-12 06:35] VITALS: BP 136/80
--- NOTE | 2018-02-12 07:13 | PN- Housestaff ---
Ariella Patricia MD,Ami 02/12/18 0713: Subjective Follow-up For: Pneumonia Obesity related hypoventilation AMS Respiratory failure Subjective: Patient visited today, was lying in bed comfortably in no acute distress, was drowsy, arousable and oriented. no change compared to yesterday No fever or chills, improved shortness of breathing, no chest pain, no other events. Patien did not use CPAP last night, noted she forgot. Still on . Patient stable to discharge on home o2. Review of Systems Constitutional: Reports: see HPI. Objective Last 24 Hrs of Vital Signs/I&O Vital Signs Date Time Temp Pulse Resp B/P B/P Pulse O2 O2 Flow FiO2 Mean Ox Delivery Rate 02/12 0635 97.9 75 20 136/80 93 Nasal 2.0L Cannula 02/12 0400 87 Room Air 02/12 0000 Room Air 02/11 2304 20 94 Room Air 02/11 2117 98.2 80 20 140/77 95 Nasal 1.0L Cannula 02/11 2051 95 Nasal 1.0L Cannula 02/11 1600 Nasal 1.0L Cannula 02/11 1431 98.0 76 20 136/77 95 Nasal 1.0L Cannula 02/11 1342 96 Nasal 1.0L Cannula Physical Exam General Appearance: Cooperative, No Acute Distress, drowsy, obese Sepsis Skin Exam (color): Normal for Ethnicity HEENT: Atraumatic, EOMI Cardiovascular: Normal S1, Normal S2 Lungs: Normal Air Movement, decreased breathing sounds Abdomen: Soft, No Tenderness Current Medications: Current Medications Sig/Paul Start time Last Medication Dose Route Stop Time Status Admin Acetaminophen 1,000 MG Q8P PRN 02/09 1030 AC 02/11 PO 1638 Albuterol Sulfate 3 ML Q4-6 PRN PRN 02/07 1330 AC 02/10 INH 0437 Albuterol Sulfate 2 PUF Q4-6 PRN PRN 02/06 2045 AC INH Carbamazepine 400 MG BID 02/06 2100 AC 02/12 PO 0943 Diazepam 5 MG DAILY 02/11 0900 AC 02/12 PO 0941 Fluoxetine HCl 60 MG DAILY AC 02/07 0700 AC 02/12 PO 0629 Hydroxychloroquine 200 MG BID 02/06 2100 AC 02/12 Sulfate PO 0943 Levothyroxine Sodium 0.1 MG 02/12 06 AC 02/12 PO 0629 Melatonin 5 MG AT BEDTIME 02/11 2100 AC 02/11 PO 2301 Metoprolol Succinate 50 MG QAM 02/07 900 AC 02/12 PO 0943 Ondansetron HCl 4 MG .STK-MED ONE 02/11 2106 DC IM 02/11 2107 Ondansetron HCl 4 MG ONCE ONE 02/11 2100 DC 02/11 PO 02/11 210 211 Oxycodone HCl 30 MG Q4P PRN 02/10 1135 AC 02/12 PO 0941 Oxycodone HCl 60 MG BID 02/06 2100 AC 02/12 PO 0942 Patient Medication 1 ED ONE ONE 02/11 1500 DC 02/11 Teaching ED 02/11 1501 1502 Polyethylene Glycol 17 GM DAILY 02/09 0915 AC PO Prednisone 5 MG DAILY 02/07 900 AC 02/12 PO 0943 Pregabalin 100 MG TID 02/06 2100 AC 02/12 PO 0941 Rivaroxaban 20 MG 2300 02/07 2300 AC 02/11 PO 2301 Trimethobenzamide HCl 200 MG ONCE ONE 02/11 2330 DC 02/11 IM 02/11 2331 2339 Venlafaxine HCl 150 MG DAILY 02/07 900 AC 02/12 PO 0942 Assessment/Plan Assessment: Ms. Flynn is a 32-year-old female with PMH of PE on xarelto, polymyositis on prednisone 5 mg daily, mixed connective tissue disorder on MTX/ hydroxychloroquine, bipolar disorder on diazepam presented to ER for evaluation stating that she's had bodyaches generalized malaise, fever and chills for 1 day. During our clinical interaction, patient appeared to be very lethargic and drowsiness and was given limited history. Patient denied any cough/sick contacts/chest pain/shortness of breath, however complaining of fever Tmax 104.0 and body aches over the day, and had use Tylenol for it, and per staff note, later patient over to the PCP and was sent to the ER. Patient also stated that she had a history of DODIE, and was on home CPAP, however not very complaint with that. Per nurse's note, patient went to the bathroom and that appeared to be shortness of breath on exertion, and came back was oxygen saturation of 92%. Patient also had choking events on foods/water from the past, that she attributed to her history of polymyositis, which also made her felt numb from time to time, without particular triggers. She was not sure whether she had a choking event before this admission. During our clinical interaction, patient denied dietary/appetite change. Patient denied Chest Pain/Palpitation/exercise intolerance/Abdominal pain, bowel movement/urinary abnormality, or other skin/musculoskeletal/neurological disorders. On admission, Vitals: Afebrile, BP of 100/60, stable on nasal cannula 3 L -CBC: WBC 10.5, HH stable, -BMP: CO2 32, otherwise unremarkable -UA/Microbiology:Clear, past microbio negative -CXR: Suspected areas of new consolidation in both lower lungs. -Interventions in ER: Ceftriaxone, Azithromycin, Solumedrol, TYlenol, Fluid bolus, management were done as follow: Acute hypercapnic respiratory failure in the setting of pneumonia/ Obesity related hypoventilation/ DODIE/altered mental status due to narcotics,BDZ * CT ches showed multifocal pneumonia. Patient was initially placed on clindamycin and ceftazidime was added to broaden her coverage. She was allergic to penicillin, levofloxacin and sulfa drugs. * Condition improved, ID was consulted, recommended Ceft and azithromycin, the 5 day course were completed * Patient still needed o2 supplement due to obesity hypoventilation and DODIE * patient stable to be discharged today with o2 supplement at home Chronic medical conditions: Asthma-we continued TRC nebs, albuterol treatments Depression, bipolar disorder, insomnia, anxiety continue carbamazepine, venlafaxine, fluxetine, Dose adjusted per psych consutl Polymyositis continue prednisone 5 mg and hydroxychloroquine Hypothyroidism continue levothyroxine 100 g Hypertension continue metoprolol 50 daily Pulmonary embolism continued Xarelto home medication Chronic back pain please hold oxycodone and Lyrica for now given her lethargy DVT prophylaxis Xarelto + ALPS Regular Diet FC Patient stable to be discharged Problem List: 1. Sleep apnea 2. Obesity 3. Pneumonia 4. Hypercapnia Pain Ratin Pain Location: None Pain Goal: Pain 4 or less Pain Plan: Continue current plan Tomorrow's Labs & Rationales: DC today Christian WANG,Ayesha 02/12/18 1034: Attending Review Statement Attending Statement Attending MD Statement: examined this patient, discuss w/resident/PA/TELECOMMUNICATIONS PROFESSIONAL, agreed w/resident/PA/TELECOMMUNICATIONS PROFESSIONAL, reviewed EMR data (avail), discussed with nursing, discussed with case mgmt, amended to note Attending Assessment/Plan: Patient seen and examined. Resting comfortably. Overnight nursing staff reports that she was noncompliant with CPAP therapy despite encouragement to do so. This morning patient states she forgot to use a CPAP therapy. Yesterday she reported that she has not been compliant with her CPAP therapy at home because she has no placed on her nightstand to put the CPAP machine. We encouraged her again today the need for compliance to CPAP therapy. She verbalized that she will try to be compliant. She still requiring oxygen supplementation. She desaturated at night when off oxygen. She is maintaining saturation on 2 L of oxygen. At this point she is medically stable to be discharged home. She will continue oxygen supplementation. She has been encouraged to if compliant with CPAP therapy she may be able to be weaned off oxygen supplementation in the future. She has been advised to follow-up with the pulmonary service as an outpatient. Psychiatric service is recommending that she continue on all the medications as prescribed for her in the outpatient psychiatric program. She will be following up with them upon discharge.
--- NOTE | 2018-02-12 08:30 | PN- Pulmonary ---
Subjective HPI/Critical Care Issues: Patient continues to require low-flow oxygen for chronic hypoxic respiratory failure improved hypercapnic respiratory failure secondary to obesity alveolar hypoventilation Objective Current Medications: Current Medications Sig/Paul Start time Last Medication Dose Route Stop Time Status Admin Acetaminophen 1,000 MG Q8P PRN 02/09 1030 AC 02/11 PO 1638 Albuterol Sulfate 3 ML Q4-6 PRN PRN 02/07 1330 AC 02/10 INH 0437 Albuterol Sulfate 2 PUF Q4-6 PRN PRN 02/06 2045 AC INH Azithromycin 500 MG Q24H 02/08 1000 DC 02/10 Sodium Chloride 250 ML IV 0956 Carbamazepine 400 MG BID 02/06 2100 AC 02/11 PO 211 Ceftriaxone Sodium 1,000 MG Q24H 02/08 1000 DC 02/10 IV 0956 Diazepam 5 MG DAILY 02/11 0900 AC 02/11 PO 0945 Fluoxetine HCl 60 MG DAILY AC 02/07 0700 AC 02/12 PO 0629 Hydroxychloroquine 200 MG BID 02/06 2100 AC 02/11 Sulfate PO 211 Levothyroxine Sodium 0.1 MG 0600 02/12 0600 AC 02/12 PO 0629 Melatonin 5 MG AT BEDTIME 02/11 2100 AC 02/11 PO 2301 Metoprolol Succinate 50 MG QAM 02/07 09 AC 02/11 PO 0935 Ondansetron HCl 4 MG .STK-MED ONE 02/11 2106 DC IM 02/11 2107 Ondansetron HCl 4 MG ONCE ONE 02/11 2100 DC 02/11 PO 02/11 210 211 Oxycodone HCl 30 MG Q4P PRN 02/10 1135 AC 02/11 PO 230 Oxycodone HCl 60 MG BID 02/06 2100 AC 02/11 PO 2111 Patient Medication 1 ED ONE ONE 02/11 1500 DC 02/11 Teaching ED 02/11 1501 1502 Polyethylene Glycol 17 GM DAILY 02/09 0915 AC PO Prednisone 5 MG DAILY 02/07 09 AC 02/11 PO 0935 Pregabalin 100 MG TID 02/06 2100 AC 02/11 PO 2111 Rivaroxaban 20 MG 2300 02/07 2300 AC 02/11 PO 2301 Trimethobenzamide HCl 200 MG ONCE ONE 02/11 2330 DC 02/11 IM 02/11 2331 2339 Venlafaxine HCl 150 MG DAILY 02/07 0900 AC 02/11 PO 0935 Vital Signs & I&O Last 24 Hrs of Vitals and I&O: Vital Signs Date Time Temp Pulse Resp B/P B/P Pulse O2 O2 Flow FiO2 Mean Ox Delivery Rate 02/12 0635 97.9 75 20 136/80 93 Nasal 2.0L Cannula 02/12 0400 87 Room Air 02/12 0000 Room Air 02/11 2304 20 94 Room Air 02/11 2117 98.2 80 20 140/77 95 Nasal 1.0L Cannula 02/11 2051 95 Nasal 1.0L Cannula 02/11 1600 Nasal 1.0L Cannula 02/11 1431 98.0 76 20 136/77 95 Nasal 1.0L Cannula 02/11 1342 96 Nasal 1.0L Cannula 02/11 0935 78 132/80 02/11 0923 22 93 Nasal 1.0L Cannula 02/11 0923 22 87 Room Air 02/11 0923 22 94 Room Air 02/11 0923 22 95 Nasal 1.0L Cannula 02/11 0900 95 Nasal 1.0L Cannula Duration 87% room air 2 L 93% exam for chest shows diminished breath sounds cardiac exam shows normal S1 and S2 without murmurs Impression/Plan Impression/Plan Impression/Plan: 32-year-old woman with improved acute on chronic hypercapnic history failure and chronic hypoxic respiratory failure with sleep apnea. Recommendations: Will require low-flow oxygen at discharge and with nasal CPAP at night,
--- NOTE | 2018-02-12 12:38 | Incdntl Nt Psy ---
Incidental Note Notation: The patient is lying in bed with her nasal cannula in place. She is calm, watching TV with intermittent eye contact. She denies AH. or VH and presents no jaky delusions. She denies SI or HI. She is expecting to discharge to home today. Her new intake at [facility] is 02/13/18 @ [id number] with Jaden at [address] [place] [address], . She has a card with this information on it.
[2018-02-22] MEDS ORDERED: DIAZEPAM5 M1 PO (15:28)
[2018-02-22] MEDS ORDERED: METFORMIN HCL500 M4 PO (15:33)
== END 2018-02-12 15:36 | disposition home health service (06) | DRG 193 ==
LOC: ERH 16:06 → CRI 19:23 → ERHI 19:23 → 2NB 19:23 → ENRESERV 20:20 → EDTRNSPT 20:55 → ENTRNSPT 20:55 → EDTRNSPTSTS 21:13 → 2NB 21:25 → CMPTRNSPT 21:41 → 2NB 02-07 08:26 → CRI 02-07 14:08 → ENTRNSPT 02-08 13:49 → 2NB 02-08 14:27 → CMPTRNSPT 02-08 14:37 → ENPENDDIS 02-12 10:13 → ENTRNSPT 02-12 15:25 → CMPTRNSPT 02-12 15:36 → 2NB 02-12 15:36
PROVIDERS: Hospitalist; Physician Assistant Medical; Radiology Vascular & Interventional Radiology; Student in an Organized Health Care Education/Training Program
PROC: 5A09357 Assistance with Respiratory Ventilation, Less than 24 Consecutive Hours, Continuous Positive Airway Pressure (ICD-10-PCS; principal; 2018-02-07)
DX: J15.9 Unspecified bacterial pneumonia (principal); G93.41 Metabolic encephalopathy; J96.22 Acute and chronic respiratory failure with hypercapnia; D68.61 Antiphospholipid syndrome; F11.20 Opioid dependence, uncomplicated; E66.2 Morbid (severe) obesity with alveolar hypoventilation; M33.20 Polymyositis, organ involvement unspecified; Z68.43 Body mass index [BMI] 50.0-59.9, adult; M35.1 Other overlap syndromes; Z86.711 Personal history of pulmonary embolism; Z79.01 Long term (current) use of anticoagulants; Z79.52 Long term (current) use of systemic steroids; F31.9 Bipolar disorder, unspecified; Z88.6 Allergy status to analgesic agent; Z88.1 Allergy status to other antibiotic agents; Z88.0 Allergy status to penicillin; Z88.2 Allergy status to sulfonamides; Z88.8 Allergy status to other drugs, medicaments and biological substances; Z79.51 Long term (current) use of inhaled steroids; M54.9 Dorsalgia, unspecified; E55.9 Vitamin D deficiency, unspecified; M19.90 Unspecified osteoarthritis, unspecified site; F41.9 Anxiety disorder, unspecified; Z90.49 Acquired absence of other specified parts of digestive tract
CPT/HCPCS: 2NBSP; CCU; 36415; 36592; 71045; 80307; 81003; 82436; 87040; 87070; 87086; 87449; 87450; 87804; 87804-59; 93005; 93010; 94799; 96361; 96374; 97161-GP; 99232; J0131; J0456; J0696; J0713; J1885; J2405; J2930; J3101; J3250; J3490; J7040; J7512